=== PATIENT | male | born 1965 | race Caucasian/White ===

== ENCOUNTER 2016-12-10 18:49 | Inpatient (IN) | payer MEDICARE, MEDICAID ==
[2016-12-10] MEDS ORDERED: NORMAL SALINE 1000 ML 500 ML IV ONE (19:00)
--- NOTE | 2016-12-10 19:05 | ER Document Report ---
ED Respiratory Problem - General Time seen by provider: 19:05 Mode of Arrival: Medic Information source: Emergency Med Personnel, [facility] Records Cannot obtain history due to: Other TRAVEL OUTSIDE OF THE [place] IN LAST 30 DAYS: No - HPI Patient complains to provider of: Short of breath Onset: Other - see HPI note Duration: Continuous, Worse/persistent EMS treatments: CPAP, Solumedrol <KAYE MAGALLANES - Last Filed: 12/10/16 23:53> <CRISTOBAL SHETH - Last Filed: 12/11/16 01:41> - General Chief Complaint: Breathing Difficulty Stated Complaint: DIFFICULTY BREATHING Notes: Patient is a 50-year-old male presents to emergency department with complaints of difficulty breathing. Patient was brought in via EMS reports that the patient has been short of breath all day. Patient's oxygen saturation was in the 80s. Patient was given 2 A&A nebulizer treatments and 125 mg Solu-Medrol. Patient was placed on CPAP by EMS. Patient has a history of CHF, COPD, and type II diabetes mellitus. Patient opens his eyes to verbal commands but appears to be very sleepy and is not very responsive. Patient had a blood glucose level of 174 and a blood pressure of 214/120 at time of exam. Patient denies any chest pain but complains of hip pain. Patient has a history of being noncompliant to his medications or CPAP as well as a history of visits the emergency department for similar symptoms to today. Patient has been admitted in the past his CHF and COPD. Patient is allergic to codeine. (KAYE MAGALLANES) - Related Data Allergies/Adverse Reactions: codeine [Codeine] Allergy (Severe, Verified 10/09/16 07:46) Shellfish * [Shellfish] Allergy (Verified 10/09/16 07:46) Past Medical History - General Information source: Patient, Emergency Med Personnel, [facility] Records - Social History Smoking Status: Smoker,Current Status Unk Family History: Other - Mother- Stroke - Past Medical History Cardiac Medical History: Reports: Hx Atrial Fibrillation, Hx Congestive Heart Failure, Hx Heart Attack - x2, Hx Hypercholesterolemia, Hx Hypertension Pulmonary Medical History: Reports: Hx COPD, Hx Sleep Apnea - wears C-PAP at home, Hx Tuberculosis Endocrine Medical History: Reports: Hx Diabetes Mellitus Type 2, Hx Hypothyroidism GI Medical History: Reports: Hx Gastroesophageal Reflux Disease Skin Medical History: Reports Hx Cellulitis Psychiatric Medical History: Reports: Hx Depression Past Surgical History: Reports: Hx Appendectomy, Hx Cardiac Surgery - 3 Stents - Immunizations Hx Diphtheria, Pertussis, Tetanus Vaccination: Yes Hx Pneumococcal Vaccination: 02/25/13 <KAYE MAGALLANES - Last Filed: 12/10/16 23:53> Review of Systems - Review of Systems Constitutional: No symptoms reported EENT: No symptoms reported Cardiovascular: No symptoms reported. denies: Chest pain Respiratory: See HPI, Short of breath, Wheezing Gastrointestinal: No symptoms reported Genitourinary: No symptoms reported Male Genitourinary: No symptoms reported Musculoskeletal: No symptoms reported Skin: No symptoms reported Hematologic/Lymphatic: No symptoms reported Neurological/Psychological: No symptoms reported -: Yes All other systems reviewed and negative <KAYE MAGALLANES - Last Filed: 12/10/16 23:53> Physical Exam - Vital signs Interpretation: Hypertensive, Hypoxic, Tachypneic - General General appearance: Alert In distress: Moderate - Respiratory Respiratory status: Respiratory distress, Retractions Breath sounds: Decreased air movement, Rales, Wheezing - Cardiovascular Rhythm: Regular - Abdominal Inspection: Normal Distension: No distension Tenderness: Nontender - Back Back: Normal - Extremities General upper extremity: Normal inspection, Normal ROM General lower extremity: Normal inspection, Normal ROM - Neurological Neuro grossly intact: Yes Cognition: Normal Orientation: AAOx4 Juan R Coma Scale Eye Opening: To Voice [place] Coma Scale Verbal: Oriented [place] Coma Scale Motor: Obeys Commands [place] Coma Scale Total: 14 <CRISTOBAL SHETH - Last Filed: 12/11/16 01:41> - Vital signs Vitals: Resp Pulse Ox 24 H 90 L 12/10/16 18:54 12/10/16 18:54 (KAYE MAGALLANES) (CRISTOBAL SHETH) Course - Laboratory Result Diagrams: 12/10/16 18:55 12/10/16 18:55 - Consults Dr. Kelly Time consulted: 21:30 <KAYE MAGALLANES - Last Filed: 12/10/16 23:53> - Laboratory Result Diagrams: 12/10/16 18:55 12/10/16 18:55 <CRISTOBAL SHETH - Last Filed: 12/11/16 01:41> - Re-evaluation Re-evalutation: 12/10 Patient is a 50-year-old male who comes in with difficulty breathing. Patient has a history of heart failure, diabetes, hypothyroidism, noncompliance with medications. Patient's symptoms are consistent with his presentation in the past. Patient with acute heart failure. Patient was started on Lasix, nitroglycerin drip, and BiPAP. She is given levothyroxin for his high TSH. Patient has been drowsy but arousable. Initial CO2 was very elevated. Patient is able to follow commands. No evidence for pneumonia at this time. Discussed with the hospitalist service. Patient will be admitted to the ICU. Stable at time of admission. (CRISTOBAL SHETH) - Vital Signs Vital signs: Temp Pulse Resp BP Pulse Ox 15 105/55 L 95 12/11/16 00:11 12/11/16 00:11 12/11/16 00:11 (KAYE MAGALLANES) (CRISTOBAL SHETH) - Laboratory Laboratory results interpreted by me: 12/10/16 12/10/16 12/10/16 18:53 18:55 18:55 WBC 13.4 H RDW 15.0 H Band Neutrophils % 1 L Abs Neuts (Manual) 9.2 H Absolute Eos (Manual) 0.8 H VBG pH VBG pCO2 VBG HCO3 Chloride 85 L Carbon Dioxide 43 H* Glucose 173 H POC Glucose 174 H CK-MB (CK-2) NT-Pro-B Natriuret Pep TSH Urine Protein 12/10/16 12/10/16 12/10/16 18:55 18:55 18:55 WBC RDW Band Neutrophils % Abs Neuts (Manual) Absolute Eos (Manual) VBG pH 7.27 L VBG pCO2 103.6 H* VBG HCO3 46.0 H Chloride Carbon Dioxide Glucose POC Glucose CK-MB (CK-2) 5.57 H NT-Pro-B Natriuret Pep 1130 H TSH 164.00 H Urine Protein 12/10/16 12/10/16 20:46 21:30 WBC RDW Band Neutrophils % Abs Neuts (Manual) Absolute Eos (Manual) VBG pH VBG pCO2 VBG HCO3 Chloride Carbon Dioxide Glucose POC Glucose 190 H CK-MB (CK-2) NT-Pro-B Natriuret Pep TSH Urine Protein >=500 H (CRISTOBAL SHETH) - Consults Dr. Kelly Reason for consultation: 12/10/16 21:[address] Kelly. Patient will be admitted. (KAYE MAGALLANES ) Critical Care Note - Critical Care Note Total time excluding time spent on procedures (mins): 90 - evaluation and management of respiratory distress with multiple re-evaluations, treatment of CHF, coordination of admission to the ICU <CRISTOBAL SHETH - Last Filed: 12/11/16 01:41> Discharge <KAYE MAGALLANES - Last Filed: 12/10/16 23:53> - Discharge Admitting Provider: Cristhian Kelly Unit Admitted: ICU <CRISTOBAL SHETH - Last Filed: 12/11/16 01:41> - Discharge Clinical Impression: Myxedema coma, Obesity hypoventilation syndrome Respiratory failure, acute and chronic Qualifiers: Respiratory failure complication: hypercapnia Qualified Code(s): J96.22 - Acute and chronic respiratory failure with hypercapnia CHF (congestive heart failure) Qualifiers: Congestive heart failure type: unspecified congestive heart failure type Congestive heart failure chronicity: acute on chronic Qualified Code(s): I50.9 - Heart failure, unspecified Sleep apnea Qualifiers: Sleep apnea type: unspecified type Qualified Code(s): G47.30 - Sleep apnea, unspecified Condition: Fair Disposition: ADMITTED INPATIENT Scribe Attestation: 12/11/16 01:41 I personally performed the services described in the documentation, reviewed and edited the documentation which was dictated to the scribe in my presence, and it accurately records my words and actions. (CRISTOBAL SHETH) Scribe Documentation - Scribe Written by Scribe:: Kaye Magallanes 12/10/16 23:55 acting as scribe for :: Mary <KAYE MAGALLANES - Last Filed: 12/10/16 23:53>
[2016-12-10 19:09] LABS: VENOUS BLOOD BASE EXCESS 13.4 mmol/L; VENOUS BLOOD PH 7.27 (7.30-7.42)
[2016-12-10 19:12] LABS: HEMOGLOBIN 14.9 g/dL (13.5-17.0); HGB HCT DIFFERENCE -1.3; MEAN CORPUSCULAR HEMOGLOBIN 29.6 pg (27.0-33.4); MEAN CORPUSCULAR HGB CONC 32.5 g/dL (32.0-36.0); MEAN CORPUSCULAR VOLUME 91 fl (80-97); RED BLOOD COUNT 5.05 10^6/uL (4.35-5.55); VENOUS BLOOD PCO2 103.6 mmHg (35-63); WHITE BLOOD COUNT 13.4 10^3/uL (4.0-10.5)
[2016-12-10] MEDS ORDERED: FUROSEMIDE INJ/PF 40 MG/4 ML SDV IV ONE (19:16)
[2016-12-10 19:27] LABS: ALANINE AMINOTRANSFERASE 41 U/L (21-72); ALBUMIN 3.8 g/dL (3.5-5.0); ALKALINE PHOSPHATASE 114 U/L (38-126); ASPARTATE AMINO TRANSFERASE 41 U/L (17-59); BILIRUBIN,TOTAL 0.6 mg/dL (0.2-1.3); BLOOD UREA NITROGEN 13 mg/dL (7-20); CALCIUM 9.4 mg/dL (8.4-10.2); CHLORIDE 85 mmol/L (98-107); CREATINE KINASE 151 U/L (55-170); CREATININE RESULT 1.16 mg/dL (0.52-1.25); GLUCOSE 173 mg/dL (75-110); POTASSIUM 4.1 mmol/L (3.6-5.0); SODIUM 137.3 mmol/L (137-145); TOTAL PROTEIN 7.9 g/dL (6.3-8.2)
[2016-12-10 19:29] LABS: BAND NEUTROPHILS % (MANUAL) 1 % (3-5); BASOPHILS % (MANUAL) 0 % (0-2); EOSINOPHILS % (MANUAL) 6 % (0-6); LYMPHOCYTES % (MANUAL) 15 % (13-45); NUCLEATED RED BLOOD CELLS 1 /100 WBC (0); TOTAL CELLS COUNTED 100
[2016-12-10 19:30] LABS: RBC MORPHOLOGY COMMENT NORMO-CYTIC/CHROMIC
[2016-12-10 19:37] LABS: CREATINE KINASE MB 5.57 ng/mL (<4.55)
[2016-12-10] MEDS ORDERED: NITROGLYCERIN/D5W 250 ML IV PRN (19:39)
[2016-12-10] MEDS ORDERED: IPRATROPIUM/ALBUTEROL 0.5-2.5 MG/3 ML AMPUL NEB ONE (19:49)
[2016-12-10 19:59] LABS: ANION GAP 9 (5-19); CARBON DIOXIDE 43 mmol/L (22-30); TROPONIN I 0.048 ng/mL
[2016-12-10] MEDS ORDERED: LEVOTHYROXINE SODIUM INJ/PF 0.1 MG SDV IV ONE (21:12)
[2016-12-10 21:40] LABS: APPEARANCE,URINE CLEAR; BILIRUBIN,URINE NEGATIVE (NEGATIVE); GLUCOSE, URINE NEGATIVE (NEGATIVE); KETONES,URINE NEGATIVE (NEGATIVE); LEUKOCYTE ESTERASE,URINE NEGATIVE (NEGATIVE); NITRITE,URINE NEGATIVE (NEGATIVE); PROTEIN,URINE >=500 mg/dL (NEGATIVE); URINE SPECIFIC GRAVITY 1.009; UROBILINOGEN,URINE NEGATIVE mg/dL (<2.0)
[2016-12-10 23:03] LABS: ADD ON TESTING BLD IN LAB ACKNOWLEDGE
[2016-12-10 23:04] LABS: VENOUS BLOOD BASE EXCESS 10.3 mmol/L; VENOUS BLOOD HCO3 45.4 mmol/L (20-32)
[2016-12-10 23:14] LABS: VENOUS BLOOD PCO2 131.5 mmHg (35-63); VENOUS BLOOD PH 7.16 (7.30-7.42)
[2016-12-10 23:22] LABS: MAGNESIUM 1.8 mg/dL (1.6-2.3)
[2016-12-10 23:23] LABS: ALCOHOL < 10 mg/dL (NONE DETECTED)
[2016-12-10 23:35] LABS: URINE BARBITURATES SCREEN NEGATIVE; URINE METHADONE SCREEN NEGATIVE; URINE OPIATES LOW NEGATIVE; URINE PHENCYCLIDINE SCREEN NEGATIVE
[2016-12-10] MEDS ORDERED: PROPOFOL 100 ML IV ONE (23:50)
[2016-12-11] MEDS ORDERED: NORMAL SALINE 1000 ML 1,000 ML IV PRN (00:07)
[2016-12-11] MEDS ORDERED: DEXTROSE 50%-WATER 25 GM/50 ML DISP.SYRIN IV PRN ×4 (00:08→12:54)
[2016-12-11] MEDS ORDERED: DEXTROSE 40% GEL 15 GM TUBE PO PRN ×5 (00:08→12:54)
[2016-12-11] MEDS ORDERED: GLUCAGON,HUMAN RECOMB 1 MG INJ IM PRN ×3 (00:08→12:54)
--- NOTE | 2016-12-11 00:08 | EKG REPORT ---
SEVERITY:- ABNORMAL ECG - SINUS RHYTHM LEFT AXIS DEVIATION CONSIDER ANTERIOR INFARCT NONSPECIFIC T ABNORMALITIES, LATERAL LEADS PROLONGED QT INTERVAL : Confirmed by: Patria Mccain 11-Dec-2016 00:08:08
[2016-12-11] MEDS ORDERED: ALBUTEROL SULFATE 0.083% NEB 2.5 MG/3 ML AMPUL NEB PRN (00:37)
[2016-12-11] MEDS ORDERED: GENTAMICIN SULFATE 0 MG in DEXTROSE 5%-WATER 100 ML IV NR (00:45)
[2016-12-11] MEDS ORDERED: PHARMACY COMMUNICATION ORDER MC NR ×2 (00:45)
[2016-12-11] MEDS ORDERED: DOXYCYCLINE HYCLATE INJ 100 MG VIAL IV PRN (00:57)
[2016-12-11] MEDS ORDERED: DOXYCYCLINE HYCLATE 100 MG in DEXTROSE 5%-WATER 250 ML IV SCH (01:00)
[2016-12-11] MEDS ORDERED: DOXYCYCLINE HYCLATE INJ 100 MG VIAL IV SCH (01:00)
[2016-12-11] MEDS ORDERED: VANCOMYCIN HCL 0 MG in DEXTROSE 5%-WATER 250 ML IV NR (01:00)
[2016-12-11 01:21] LABS: ADD ON TESTING BLD IN LAB ACKNOWLEDGE
--- NOTE | 2016-12-11 01:26 | PDOC H&P ---
History of Present Illness Admission Date/PCP: 12/10/16 21:51 ALONSO SHAHID MD Patient complains of: Difficulty breathing History of Present Illness: DESIRAE MALLORY is a 50 year old morbidly obese male, with underlying hypo-thyroidism, moh-dabrzjd-vuluaevcd diabetes mellitus, chronic noncompliance with multiple aspects of his health care including medications, coronary artery disease, status post stent 3, with last stent 2016 at [facility], COPD, and asthma, who presents to the emergency room for evaluation of above complaint. Patient has been discussed with emergency room physician who evaluated the patient; dictated note is pending. Patient is quite somnolent and is able to provide no history whatsoever in terms of acute or chronic events, review of systems, personal habits, family history, etc. No friends or family are present. Old inpatient records are reviewed.. No further information available at this time. BiPAP applied by the emergency room physician. Repeat venous gas shows rising PCO2. Patient barely arousable. Decision made to proceed with endotracheal intubation, which was accomplished by the [employer]. At 11:40 PM on the , I had an extensive telephone discussion with his sister Helena shortly prior to intubation. No answer for daughter Veronica, at . Similar lack of response for father at [phone]. Overall clinical impression and plans were discussed in layperson's terms with sister. She agrees and is most appreciative of our help. Laboratory results are listed in [facility] and are reviewed. X-ray summary results are listed below, with full report(s) reviewed. . EKG reviewed. And compared to tracing from 10/09/2016 Social history/personal habits: Daughter Veronica. One to 2 pack-a-day smoker. No alcohol use. No illicit drug use. No further information available this point in time. Allergies/adverse reactions are listed in [facility] and are reviewed. Home medications are reviewed bottle review and are to be reconciled by nursing staff in [facility]. Home medications initially autopopulated into [facility] may not accurately reflect patient's true medications, dosages, and/or frequencies. REVIEW OF SYSTEMS: See history and present illness.No further information available this point in time. PHYSICAL EXAMINATION: 170 kg. Height is not recorded on the chart. Blood pressure 150/70. 94% saturation on BiPAP 14/8, 70% FiO2. Respirations are 14 and unlabored. Pulse 76 and regular. Temperature not recorded on the chart; skin feels normothermic. Morbidly obese chronically ill-appearing somewhat disheveled male who appears a bit older than his stated age. BiPAP mask is in place. He is only minimally arousable when his name is shouted. However, he does move upper extremities grossly normally. Currently maintaining airway. Skin is warm and dry. No grossly obvious evidence of rash in areas of skin examined. No subcutaneous nodules palpated. Evidence of chronic venous staining bilateral lower extremities, consistent with probable long-standing venous stasis disease. ENT: Hearing difficult to evaluate due to his current status. Exam slightly limited by BiPAP mask with attaching straps. Eyes: No scleral icterus. Pupils equal and reactive to light at 4 mm. Burtrum conjunctivae. No raccoon eyes. Neck is nontender to gentle palpation. Midline trachea. No palpable thyroid nodule mass enlargement or tenderness. Lymphatic: No palpable cervical or clavicular nodes. Neck and lymphatic exams limited by patient body habitus. Exam slightly limited by BiPAP mask with attaching straps. Psychiatric: Can't be adequately evaluated due to his current status. Lungs: Auscultation reveals clear and equal breath sounds bilaterally. No use of accessory respiratory muscles. Cardiovascular: Heart regular rate and rhythm, without gallop murmur or rub. No carotid or abdominal aortic bruits. Scant bilateral symmetric ankle and pedal edema. Faintly palpable dorsalis pedis pulses. Abdomen: soft, rather obese, nontender with positive bowel sounds. Unable to adequately evaluate abdomen for masses or organomegaly due to body habitus. Extremities: Feet are warm and dry. No calf tenderness to compression. No grossly obvious visual evidence of calf swelling. Gentle manipulation of lower extremities fails to reveal any obvious evidence of injury or instability to knees hips or ankles. Neurologic: Moves upper extremities grossly normally. Patellar reflexes absent. Absent Babinski. Light touch can't be determined due to his current status... Past Medical History Past Medical History: Information per [facility] records and telephone discussion with sister Helena. Cardiac Medical History: Reports: Atrial Fibrillation, Congestive Heart Failure - DIASTOLIC, Myocardial Infarction - x2, Hyperlipidema, Hypertension, Other - stent X 3, last 2015 Denies: DVT, Pulmonary Embolism Pulmonary Medical History: Reports: Asthma, Chronic Obstructive Pulmonary Disease (COPD), Sleep Apnea - Noncompliant with C-PAP at home, Tuberculosis - History of EENT Medical History: Reports: Ears - partial hearing loss Denies: Eyes, Throat Neurological Medical History: Reports: Other - Hx TIA vs CVA Denies: Hemorrhagic CVA, Seizures Endocrine Medical History: Reports: Diabetes Mellitus Type 2, Hypothyroidism Denies: Hyperthyroidism Renal/ Medical History: Reports: None GI Medical History: Reports: Gastroesophageal Reflux Disease Denies: Cirrhosis, Hepatitis, Peptic Ulcer Disease Musculoskeltal Medical History: Reports: Arthritis Psychiatric Medical History: Reports: Bipolar Disorder, Depression, General Anxiety Disorder, Tobacco Dependency Denies: Alcohol Dependency, Substance Abuse Hematology: Reports: Other - EASY bruising Infectious Medical History: Denies: Hepatitis B, Hepatitis C Past Surgical History Past Surgical History: Reports: Appendectomy, Coronary Stent - X 3; last 2015, REPLACED BY [facility] Social History Information Source: Relative, Emergency Med Personnel, [facility] Records Smoking Status: Smoker,Current Status Unk Frequency of Alcohol Use: None Hx Recreational Drug Use: No Drugs: Marijuana Hx Prescription Drug Abuse: No - Advance Directive Resuscitation Status: Full Code Surrogate healthcare decision maker:: Uncertain at this point in time. Family History Family History: CVA, Other - DVT, multiple members Parental Family History Reviewed: No - No information available this point in time. Children Family History Reviewed: No Sibling(s) Family History Reviewed.: No Medication/Allergy Home Medications: RX: Atorvastatin Calcium 40 mg PO DAILY 06/02/14 RX: Nitroglycerin 1 tab PO PRN PRN 06/02/14 Furosemide [Lasix 40 mg Tablet] 40 mg PO QAM #30 tablet 06/05/14 Candesartan Cilexetil [Candesartan Cilexetil] 1 tab PO DAILY 10/09/16 Clopidogrel Bisulfate [Clopidogrel] 1 tab PO DAILY 10/09/16 Isosorbide Mononitrate [Isosorbide Mononitrate ER] 30 mg PO DAILY 10/09/16 Liraglutide [Victoza 2-Shemar] 0.1 ml SUBCUT DAILY 10/09/16 Metoprolol Tartrate [Metoprolol Tartrate] 25 mg PO DAILY 10/09/16 Naproxen [Naproxen] 500 mg PO BID PRN 10/09/16 RX: Fluticasone Propionate 1 spray IH DAILY 11/29/16 RX: Tiotropium [place] [Spiriva Handihaler 5 Cap/Kit (18 Mcg/Cap)] 1 cap IH DAILY 10/09/16 Sertraline HCl [Sertraline HCl] 100 mg PO DAILY 10/09/16 Acetaminophen/Pyrilam/Pamabrom [Pamprin Multi-Symptom Tab] 1 tab PO Q6 PRN 12/11 Levothyroxine Sodium [Synthroid 0.025 mg Tablet] 25 mcg PO DAILY 12/11/16 Allergies/Adverse Reactions: codeine [Codeine] Allergy (Severe, Verified 10/09/16 07:46) Shellfish * [Shellfish] Allergy (Verified 10/09/16 07:46) Physical Exam Vital Signs: Temp Pulse Resp BP Pulse Ox 15 105/55 L 95 12/11/16 00:11 12/11/16 00:11 12/11/16 00:11 Intake & Output 12/09/16 12/10/16 12/11/16 00:59 00:59 00:59 Intake Total 200 Output Total 700 Balance -500 Results Laboratory Results: 12/10/16 22:52 VBG pH 7.16 L* VBG pCO2 131.5 H* VBG HCO3 45.4 H VBG Base Excess 10.3 Impressions: Chest X-Ray 12/10/16 19:00 IMPRESSION: CARDIAC ENLARGEMENT. VASCULAR CONGESTION. Assessment & Plan - Diagnosis (1) Bilateral pneumonia Qualifiers: Pneumonia type: due to unspecified organism Lung location: lower lobe of lung Qualified Code(s): J18.9 - Pneumonia, unspecified organism Is this a current diagnosis for this admission?: YesPlan: Patient will be admitted under COPD exacerbation and pneumonia protocol. Scheduled Duonebs. PRN albuterol nebs. IV Pepcid] for gastritis prophylaxis Pulmonology consult. Antibiotics will consist of intravenous Zithromax and vancomycin, along with cefepime and gentamicin. Pharmacy to assist with dosing.. Patient is a full code. Knee high SCDs for DVT prophylaxis, along with subcutaneous heparin. Impression and plans were discussed with sister, who concurs. Time spent in evaluation and management of patient: 100 Critical care minutes. (2) ARIADNA (obstructive sleep apnea) Is this a current diagnosis for this admission?: Yes (3) Asthma Qualifiers: Asthma severity: unspecified severity Asthma complication type: uncomplicated Qualified Code(s): J45.909 - Unspecified asthma, uncomplicated Is this a current diagnosis for this admission?: Yes (4) Stented coronary artery Is this a current diagnosis for this admission?: YesPlan: Resume home medications as appropriate once these have been determined and reviewed. (5) COPD exacerbation Is this a current diagnosis for this admission?: Yes (6) Hypertensive urgency Is this a current diagnosis for this admission?: YesPlan: Gradual blood pressure reduction. Vital sign parameters listed in chart. (7) Acute on chronic diastolic (congestive) heart failure Is this a current diagnosis for this admission?: YesPlan: Resume home medications as appropriate once these have been determined and reviewed. Serial troponins. (8) Diabetes mellitus type 2 in obese Is this a current diagnosis for this admission?: YesPlan: Accu-Cheks with appropriate sliding scale coverage. (9) Respiratory failure, acute and chronic Qualifiers: Respiratory failure complication: hypoxia and hypercapnia Qualified Code(s): J96.21 - Acute and chronic respiratory failure with hypoxia Is this a current diagnosis for this admission?: Yes (10) Myxedema coma Is this a current diagnosis for this admission?: YesPlan: TSH noted. T4 and cortisol levels have been drawn. Stress dose steroids. parenteral Synthroid. Hospital does not carry parenteral T3, per my conversation with [facility] pharmacy. Intravenous dextrose. - Inpatient Certification Based on my medical assessment, after consideration of the patient's comorbidities, presenting symptoms, or acuity I expect that the services needed warrant INPATIENT care.: Yes I certify that my determination is in accordance with my understanding of Medicare's requirements for reasonable and necessary INPATIENT services [42 CFR 412.3e].: Yes Medical Necessity: Need For IV Fluids, Need For Continuous Telemetry Monitoring , Need for Nebulizer Therapy and Monitoring of Response, Need for IV Antibiotics , Risk of Diagnosis Which Will Require Inpatient Eval/Care/Monitoring Post Hospital Care: D/C or Transfer Summary
[2016-12-11] MEDS: PROPOFOL 100 ML IV PRN ×9 (02:17→22:36)
[2016-12-11 02:49] LABS: ARTERIAL BLOOD BASE EXCESS 10.6 mmol/L; ARTERIAL BLOOD O2 SATURATION 88.3 % (94-98)
[2016-12-11] MEDS ORDERED: LEVOTHYROXINE SODIUM INJ/PF 0.1 MG SDV IV ONE (04:15)
[2016-12-11] MEDS ORDERED: VANCOMYCIN HCL INJ 1000 MG VIAL IV PRN (04:21)
[2016-12-11] MEDS: DEXTROSE 5%-NORMAL SALINE 1,000 ML IV PRN (04:32)
[2016-12-11] MEDS ORDERED: VANCOMYCIN HCL INJ 1000 MG VIAL ONE (04:47)
[2016-12-11] MEDS ORDERED: LEVOTHYROXINE SODIUM INJ/PF 0.1 MG SDV ONE (04:47)
[2016-12-11] MEDS ORDERED: VANCOMYCIN HCL 2,000 MG in DEXTROSE 5%-WATER 500 ML IV ONE (05:00)
[2016-12-11] MEDS: HYDROCORTISONE SOD SUCCINATE INJ/PF 100 MG/2 ML SDV IV SCH ×3 (05:24→23:08)
[2016-12-11] MEDS: HEPARIN SOD (PORCINE) 5,000 UNIT/ML 1 ML SYRINGE SUBCUT SCH ×3 (05:26→23:09)
[2016-12-11 07:41] LABS: HEMATOCRIT 40.2 % (37.9-51.0); HEMOGLOBIN 13.3 g/dL (13.5-17.0); HGB HCT DIFFERENCE -0.3; MEAN CORPUSCULAR HEMOGLOBIN 29.7 pg (27.0-33.4); MEAN CORPUSCULAR VOLUME 90 fl (80-97); RED BLOOD COUNT 4.46 10^6/uL (4.35-5.55); RED CELL DISTRIBUTION WIDTH 14.8 % (11.5-14.0); WHITE BLOOD COUNT 14.3 10^3/uL (4.0-10.5)
[2016-12-11] MEDS ORDERED: IPRATROPIUM/ALBUTEROL 0.5-2.5 MG/3 ML AMPUL NEB SCH (08:00)
[2016-12-11 08:04] LABS: BASOPHILS % (MANUAL) 0 % (0-2); EOSINOPHILS % (MANUAL) 0 % (0-6); LYMPHOCYTES % (MANUAL) 6 % (13-45); TOTAL CELLS COUNTED 100
[2016-12-11 08:06] LABS: POLYCHROMASIA SLIGHT; STOMATOCYTES SLIGHT; TOXIC GRANULATION SLIGHT; TOXIC VACUOLATION PRESENT
[2016-12-11 08:07] LABS: ANISOCYTOSIS SLIGHT; BURR CELLS SLIGHT; MICROCYTOSIS SLIGHT; PLATELET CLUMPS PRESENT; POIKILOCYTOSIS SLIGHT
[2016-12-11] MEDS: IPRATROPIUM/ALBUTEROL 0.5-2.5 MG/3 ML AMPUL NEB SCH ×3 (08:35→20:02)
[2016-12-11 09:26] LABS: VENOUS BLOOD BASE EXCESS 13.4 mmol/L; VENOUS BLOOD HCO3 43.6 mmol/L (20-32); VENOUS BLOOD PH 7.34 (7.30-7.42)
[2016-12-11 09:28] LABS: VENOUS BLOOD PCO2 83.7 mmHg (35-63)
[2016-12-11 09:42] LABS: BLOOD UREA NITROGEN 17 mg/dL (7-20); CALCIUM 8.6 mg/dL (8.4-10.2); CHLORIDE 84 mmol/L (98-107); CREATININE RESULT 1.12 mg/dL (0.52-1.25); GLUCOSE 253 mg/dL (75-110); POTASSIUM 4.5 mmol/L (3.6-5.0); SODIUM 135.1 mmol/L (137-145); TRIGLYCERIDES 480 mg/dL (<150)
[2016-12-11 09:53] LABS: ANION GAP 10 (5-19)
[2016-12-11 09:55] LABS: CARBON DIOXIDE 41 mmol/L (22-30)
[2016-12-11] MEDS ORDERED: LEVOTHYROXINE SODIUM INJ/PF 0.1 MG SDV IV SCH (10:00)
[2016-12-11] MEDS ORDERED: CEFEPIME 2 GM/D5W RTU 50 ML IV SCH (10:00)
[2016-12-11] MEDS: TIOTROPIUM BROMIDE DPI 5 CAP/KIT (18 MCG/CAP) IH SCH (10:39)
[2016-12-11] MEDS ORDERED: INFLUENZA ADLT QUAD (36MOS+) 2016-17 VAC 0.5 ML SYR IM PRN (10:40)
[2016-12-11 10:50] LABS: ARTERIAL BLOOD BASE EXCESS 10.5 mmol/L; ARTERIAL BLOOD O2 SATURATION 87.5 % (94-98)
[2016-12-11] MEDS: CEFEPIME HCL 2 GM in DEXTROSE 5%-WATER 50 ML IV SCH ×2 (10:55→23:11)
[2016-12-11] MEDS: FUROSEMIDE INJ/PF 40 MG/4 ML SDV IV SCH (10:56)
[2016-12-11] MEDS: FAMOTIDINE INJ/PF 20 MG/2 ML SDV IV SCH ×2 (10:56→23:09)
[2016-12-11] MEDS: CLOPIDOGREL BISULFATE 75 MG TABLET NG SCH (10:56)
[2016-12-11] MEDS: METOPROLOL TARTRATE PF/INJ 5 MG/5 ML SDV IV SCH ×2 (10:57→23:12)
[2016-12-11] MEDS ORDERED: DEXTROSE 50%-WATER SYRINGE 12.5 GM/25 ML DOSE IV PRN (11:54)
[2016-12-11] MEDS ORDERED: DEXTROSE 50%-WATER SYRINGE 25 GM/50 ML DOSE IV PRN (11:54)
[2016-12-11] MEDS ORDERED: DEXTROSE 40% GEL 15 GM TUBE X 2 PO PRN (11:54)
[2016-12-11] MEDS ORDERED: INSULIN LISPRO 100 UNIT/ML 3 ML VIAL SUBCUT SCH (12:00)
--- NOTE | 2016-12-11 12:54 | PDOC PROGRESS REPORT ---
Subjective Progress Note for:: 12/11/16 Subjective:: Patient is intubated and sedated. Physical Exam Vital Signs: Temp Pulse Resp BP Pulse Ox 99.0 F 56 L 18 129/67 H 91 L 12/11/16 12:00 12/11/16 12:00 12/11/16 12:01 12/11/16 12:01 12/11/16 12:01 Intake & Output 12/10/16 12/11/16 12/12/16 06:59 06:59 06:59 Intake Total 683 Output Total 1885 435 Balance -1202 -435 Weight 171.5 kg General appearance: PRESENT: no acute distress Eye exam: PRESENT: conjunctiva pink. ABSENT: scleral icterus Mouth exam: PRESENT: moist, tongue midline, other - ET tube in place along with an OG tube. Neck exam: ABSENT: JVD Respiratory exam: PRESENT: rhonchi - Bilateral rhonchi. Cardiovascular exam: PRESENT: RRR. ABSENT: diastolic murmur, rubs, systolic murmur GI/Abdominal exam: PRESENT: normal bowel sounds, soft. ABSENT: distended, guarding, mass, organolmegaly, rebound, tenderness Extremities exam: ABSENT: calf tenderness, clubbing, pedal edema Neurological exam: PRESENT: other - Intubated and sedated. Psychiatric exam: PRESENT: other - Unable to assess. Skin exam: PRESENT: dry, intact, warm. ABSENT: cyanosis, rash Results Laboratory Results: 12/11/16 07:25 12/11/16 09:14 12/11/16 12/11/16 12/11/16 02:35 07:25 07:25 WBC 14.3 H RBC 4.46 Hgb 13.3 L Hct 40.2 MCV 90 MCH 29.7 MCHC 33.0 RDW 14.8 H Plt Count 214 Seg Neutrophils % Not Reportable Lymphocytes % Not Reportable Monocytes % Not Reportable Eosinophils % Not Reportable Basophils % Not Reportable Absolute Neutrophils Not Reportable Absolute Lymphocytes Not Reportable Absolute Monocytes Not Reportable Absolute Eosinophils Not Reportable Absolute Basophils Not Reportable Carbonic Acid 2.21 H HCO3/H2CO3 Ratio 17:1 ABG pH 7.35 ABG pCO2 73.4 H* ABG pO2 59.4 L ABG HCO3 39.5 H ABG O2 Saturation 88.3 L ABG Base Excess 10.6 VBG pH VBG pCO2 VBG HCO3 VBG Base Excess FiO2 100% Sodium Cancelled Potassium Cancelled Chloride Cancelled Carbon Dioxide Cancelled Anion Gap Cancelled BUN Cancelled Creatinine Cancelled Est GFR ( Amer) Cancelled Est GFR (Non-Af Amer) Cancelled Glucose Cancelled Calcium Cancelled Triglycerides 12/11/16 12/11/16 12/11/16 07:25 09:14 09:17 WBC RBC Hgb Hct MCV MCH MCHC RDW Plt Count Seg Neutrophils % Lymphocytes % Monocytes % Eosinophils % Basophils % Absolute Neutrophils Absolute Lymphocytes Absolute Monocytes Absolute Eosinophils Absolute Basophils Carbonic Acid HCO3/H2CO3 Ratio ABG pH ABG pCO2 ABG pO2 ABG HCO3 ABG O2 Saturation ABG Base Excess VBG pH 7.34 VBG pCO2 83.7 H* VBG HCO3 43.6 H VBG Base Excess 13.4 FiO2 Sodium 135.1 L Potassium 4.5 Chloride 84 L Carbon Dioxide 41 H* Anion Gap 10 BUN 17 Creatinine 1.12 Est GFR ( Amer) > 60 Est GFR (Non-Af Amer) > 60 Glucose 253 H Calcium 8.6 Triglycerides Cancelled 480 H 12/11/16 10:35 WBC RBC Hgb Hct MCV MCH MCHC RDW Plt Count Seg Neutrophils % Lymphocytes % Monocytes % Eosinophils % Basophils % Absolute Neutrophils Absolute Lymphocytes Absolute Monocytes Absolute Eosinophils Absolute Basophils Carbonic Acid 1.45 H HCO3/H2CO3 Ratio 24:1 ABG pH 7.49 H ABG pCO2 48.1 H ABG pO2 49.7 L ABG HCO3 35.5 H ABG O2 Saturation 87.5 L ABG Base Excess 10.5 VBG pH VBG pCO2 VBG HCO3 VBG Base Excess FiO2 60% Sodium Potassium Chloride Carbon Dioxide Anion Gap BUN Creatinine Est GFR ( Amer) Est GFR (Non-Af Amer) Glucose Calcium Triglycerides 12/11/16 12/11/16 00:49 07:25 Troponin I 0.051 0.036 Impressions: Chest X-Ray 12/10/16 19:00 IMPRESSION: CARDIAC ENLARGEMENT. VASCULAR CONGESTION. KUB X-Ray 12/11/16 00:39 IMPRESSION: Nasogastric tube extends below the diaphragm. Assessment & Plan - Diagnosis (1) Respiratory failure, acute and chronic Qualifiers: Respiratory failure complication: hypercapnia Qualified Code(s): J96.22 - Acute and chronic respiratory failure with hypercapnia Is this a current diagnosis for this admission?: YesPlan: There was concern initially this may represent an early pneumonia although chest x-ray does not show an obvious infiltrate. Patient has been started on multiple antibiotics we will continue the vancomycin and cefepime. We'll also continue the doxycycline for now and stop the gentamicin. This could very well be secondary to congestive heart failure along with COPD as well. (2) Acute on chronic diastolic (congestive) heart failure Is this a current diagnosis for this admission?: YesPlan: Patient is on IV Lasix and we'll continue with that. (3) COPD exacerbation Is this a current diagnosis for this admission?: YesPlan: We'll continue with nebulizers and IV steroids. (4) Bilateral pneumonia Qualifiers: Pneumonia type: due to unspecified organism Lung location: lower lobe of lung Qualified Code(s): J18.9 - Pneumonia, unspecified organism Is this a current diagnosis for this admission?: YesPlan: Is not clear whether the findings on chest x-ray are congestive heart failure versus early pneumonia. We have the possibility of pneumonia covered with antibiotics as above. (5) Hypertensive urgency Is this a current diagnosis for this admission?: YesPlan: Improving. The patient's blood pressures have returned to normal range. (6) Myxedema coma Is this a current diagnosis for this admission?: YesPlan: The patient has a very high TSH and low T4. He does have a history of taking Synthroid 200 g. Patient has gotten IV doses of Synthroid. Given his history of coronary artery disease I am hesitant to be more aggressive and we will give 100 g daily for now. (7) Sleep apnea Qualifiers: Sleep apnea type: unspecified type Qualified Code(s): G47.30 - Sleep apnea, unspecified Is this a current diagnosis for this admission?: YesPlan: Patient is currently intubated and ventilated. (8) Hypothyroidism Is this a current diagnosis for this admission?: YesPlan: Continue with Synthroid as above. (9) Obesity hypoventilation syndrome Is this a current diagnosis for this admission?: YesPlan: Patient is intubated and ventilated. (10) Diabetes mellitus type 2 in obese Is this a current diagnosis for this admission?: YesPlan: We'll continue with sliding scale insulin. (11) ARIADNA (obstructive sleep apnea) Is this a current diagnosis for this admission?: Yes (12) Stented coronary artery Is this a current diagnosis for this admission?: YesPlan: Continue the Plavix. - Time Critical Time spent with patient: 15-24 minutes - Inpatient Certification Medical Necessity: Need for IV Antibiotics
[2016-12-11] MEDS ORDERED: SUCCINYLCHOLINE CHLORIDE INJ 200 MG/10 ML VIAL ONE (13:14)
[2016-12-11] MEDS: DOXYCYCLINE HYCLATE 100 MG in DEXTROSE 5%-WATER 250 ML IV SCH (16:01)
[2016-12-11] MEDS: INSULIN REG, HUMAN 100 UNIT/ML 3 ML VIAL (PYX) SUBCUT PRN (19:29)
[2016-12-11] MEDS: VANCOMYCIN HCL 2,000 MG in DEXTROSE 5%-WATER 500 ML IV SCH (19:30)
[2016-12-12] MEDS: INSULIN REG, HUMAN 100 UNIT/ML 3 ML VIAL (PYX) SUBCUT PRN ×2 (00:10→18:36)
[2016-12-12] MEDS: PROPOFOL 100 ML IV PRN ×8 (02:00→23:20)
[2016-12-12] MEDS: DOXYCYCLINE HYCLATE 100 MG in DEXTROSE 5%-WATER 250 ML IV SCH (02:12)
[2016-12-12] MEDS: IPRATROPIUM/ALBUTEROL 0.5-2.5 MG/3 ML AMPUL NEB SCH ×4 (02:36→19:49)
[2016-12-12 04:17] LABS: ABSOLUTE LYMPHOCYTES (AUTO) 1.7 10^3/uL (0.5-4.7); ABSOLUTE MONOCYTES (AUTO) 0.9 10^3/uL (0.1-1.4); ABSOLUTE NEUT (AUTO) 8.4 10^3/uL (1.7-8.2); BASOPHILS % (AUTO) 0.1 % (0-2); EOSINOPHILS % (AUTO) 0.3 % (0-6); HEMATOCRIT 39.2 % (37.9-51.0); HEMOGLOBIN 13.2 g/dL (13.5-17.0); HGB HCT DIFFERENCE 0.4; LYMPHOCYTES % (AUTO) 15.2 % (13-45); MEAN CORPUSCULAR HEMOGLOBIN 29.8 pg (27.0-33.4); MEAN CORPUSCULAR HGB CONC 33.6 g/dL (32.0-36.0); MEAN CORPUSCULAR VOLUME 89 fl (80-97); MONOCYTES % (AUTO) 8.1 % (3-13); RED BLOOD COUNT 4.42 10^6/uL (4.35-5.55); SEGMENTED NEUTROPHILS % (AUTO) 76.3 % (42-78); WHITE BLOOD COUNT 11.1 10^3/uL (4.0-10.5)
[2016-12-12 04:22] LABS: PROTHROMBIN TIME 12.8 SEC (11.4-15.4)
[2016-12-12 04:23] LABS: PARTIAL THROMBOPLASTIN TIME 28.6 SEC (23.5-35.8)
[2016-12-12 04:36] LABS: ALANINE AMINOTRANSFERASE 37 U/L (21-72); ALKALINE PHOSPHATASE 103 U/L (38-126); ANION GAP 11 (5-19); ASPARTATE AMINO TRANSFERASE 30 U/L (17-59); BILIRUBIN,TOTAL 0.7 mg/dL (0.2-1.3); BLOOD UREA NITROGEN 27 mg/dL (7-20); CALCIUM 8.7 mg/dL (8.4-10.2); CARBON DIOXIDE 36 mmol/L (22-30); CHLORIDE 87 mmol/L (98-107); CREATININE RESULT 1.48 mg/dL (0.52-1.25); GLUCOSE 213 mg/dL (75-110); MAGNESIUM 1.5 mg/dL (1.6-2.3); SODIUM 133.5 mmol/L (137-145); TOTAL PROTEIN 6.3 g/dL (6.3-8.2)
[2016-12-12] MEDS: VANCOMYCIN HCL 2,000 MG in DEXTROSE 5%-WATER 500 ML IV SCH (05:14)
[2016-12-12] MEDS: HYDROCORTISONE SOD SUCCINATE INJ/PF 100 MG/2 ML SDV IV SCH ×3 (05:14→21:01)
[2016-12-12] MEDS: HEPARIN SOD (PORCINE) 5,000 UNIT/ML 1 ML SYRINGE SUBCUT SCH ×3 (05:17→21:02)
[2016-12-12 06:23] LABS: ARTERIAL BLOOD BASE EXCESS 10.5 mmol/L; ARTERIAL BLOOD O2 SATURATION 93.5 % (94-98)
[2016-12-12] MEDS ORDERED: MAGNESIUM SULFATE/D5W 1 GM/100 ML RTUPB IV ONE (08:45)
[2016-12-12] MEDS: FUROSEMIDE INJ/PF 40 MG/4 ML SDV IV SCH (10:01)
[2016-12-12] MEDS: METOPROLOL TARTRATE PF/INJ 5 MG/5 ML SDV IV SCH ×2 (10:02→21:03)
[2016-12-12] MEDS: FAMOTIDINE INJ/PF 20 MG/2 ML SDV IV SCH ×2 (10:02→21:01)
[2016-12-12] MEDS: CLOPIDOGREL BISULFATE 75 MG TABLET NG SCH (10:02)
[2016-12-12] MEDS: CEFEPIME HCL 2 GM in DEXTROSE 5%-WATER 50 ML IV SCH (10:03)
[2016-12-12] MEDS: TIOTROPIUM BROMIDE DPI 5 CAP/KIT (18 MCG/CAP) IH SCH (10:03)
--- NOTE | 2016-12-12 10:26 | PDOC PROGRESS REPORT ---
Subjective Progress Note for:: 12/12/16 Subjective:: Patient is intubated but is not currently sedated. He was able to mouth that he was feeling better and wants to know when his ET tube could be removed. Physical Exam Vital Signs: Temp Pulse Resp BP Pulse Ox 98.3 F 71 19 169/84 H 95 12/12/16 10:00 12/12/16 10:00 12/12/16 10:00 12/12/16 10:00 12/12/16 10:00 Intake & Output 12/11/16 12/12/16 12/13/16 06:59 06:59 06:59 Intake Total 683 3443 Output Total 1887 8301 1200 Balance -1202 -392 -1200 Weight 171.5 kg General appearance: PRESENT: no acute distress Eye exam: PRESENT: conjunctiva pink. ABSENT: scleral icterus Ear exam: PRESENT: normal external ear exam Mouth exam: PRESENT: moist, tongue midline Neck exam: ABSENT: JVD Respiratory exam: PRESENT: clear to auscultation laxmi. ABSENT: rales, rhonchi, wheezes Cardiovascular exam: PRESENT: RRR. ABSENT: diastolic murmur, rubs, systolic murmur GI/Abdominal exam: PRESENT: normal bowel sounds, soft. ABSENT: distended, guarding, mass, organolmegaly, rebound, tenderness Extremities exam: ABSENT: calf tenderness, clubbing, pedal edema Neurological exam: PRESENT: alert, awake Psychiatric exam: PRESENT: appropriate affect Skin exam: PRESENT: dry, intact, warm. ABSENT: cyanosis, rash Results Laboratory Results: 12/12/16 03:56 12/12/16 03:56 12/11/16 12/12/16 12/12/16 10:35 03:56 03:56 WBC 11.1 H RBC 4.42 Hgb 13.2 L Hct 39.2 MCV 89 MCH 29.8 MCHC 33.6 RDW 15.0 H Plt Count 220 Seg Neutrophils % 76.3 Lymphocytes % 15.2 Monocytes % 8.1 Eosinophils % 0.3 Basophils % 0.1 Absolute Neutrophils 8.4 H Absolute Lymphocytes 1.7 Absolute Monocytes 0.9 Absolute Eosinophils 0.0 Absolute Basophils 0.0 Carbonic Acid 1.45 H HCO3/H2CO3 Ratio 24:1 ABG pH 7.49 H ABG pCO2 48.1 H ABG pO2 49.7 L ABG HCO3 35.5 H ABG O2 Saturation 87.5 L ABG Base Excess 10.5 FiO2 60% Sodium 133.5 L Potassium 4.0 Chloride 87 L Carbon Dioxide 36 H Anion Gap 11 BUN 27 H Creatinine 1.48 H Est GFR ( Amer) > 60 Est GFR (Non-Af Amer) 50 L Glucose 213 H Calcium 8.7 Magnesium 1.5 L Total Bilirubin 0.7 AST 30 ALT 37 Alkaline Phosphatase 103 Total Protein 6.3 Albumin 3.0 L 12/12/16 06:05 WBC RBC Hgb Hct MCV MCH MCHC RDW Plt Count Seg Neutrophils % Lymphocytes % Monocytes % Eosinophils % Basophils % Absolute Neutrophils Absolute Lymphocytes Absolute Monocytes Absolute Eosinophils Absolute Basophils Carbonic Acid 1.29 HCO3/H2CO3 Ratio 26:1 ABG pH 7.52 H ABG pCO2 42.9 ABG pO2 60.8 L ABG HCO3 34.5 H ABG O2 Saturation 93.5 L ABG Base Excess 10.5 FiO2 50% Sodium Potassium Chloride Carbon Dioxide Anion Gap BUN Creatinine Est GFR ( Amer) Est GFR (Non-Af Amer) Glucose Calcium Magnesium Total Bilirubin AST ALT Alkaline Phosphatase Total Protein Albumin 12/11/16 12/11/16 00:49 07:25 Troponin I 0.051 0.036 Impressions: KUB X-Ray 12/11/16 00:39 IMPRESSION: Nasogastric tube extends below the diaphragm. Chest/Abdomen CTA 12/11/16 11:44 IMPRESSION: 1. NORMAL CTA OF THE CHEST. NO PULMONARY EMBOLI. 2. CARDIOMEGALY. PROMINENT AIRSPACE DISEASE IN THE RIGHT AND LEFT LOWER LOBES SECONDARY TO PNEUMONIA AND/OR ATELECTASIS. Chest X-Ray 12/12/16 06:00 IMPRESSION: OVERALL SLIGHT IMPROVEMENT COMPARED TO THE PRIOR STUDY DESCRIBED ABOVE. Assessment & Plan - Diagnosis (1) Respiratory failure, acute and chronic Qualifiers: Respiratory failure complication: hypercapnia Qualified Code(s): J96.22 - Acute and chronic respiratory failure with hypercapnia Is this a current diagnosis for this admission?: YesPlan: There was concern initially this may represent an early pneumonia although chest x-ray does not show an obvious infiltrate. Will change antibiotics to Levaquin and DC all the other antibiotics. This could very well be secondary to congestive heart failure along with COPD as well. Patient has improved and we will try to wean off the ventilator today. (2) Acute on chronic diastolic (congestive) heart failure Is this a current diagnosis for this admission?: YesPlan: Patient is on IV Lasix and we'll continue with that. The patient's creatinine has increased slightly but we will continue that for treatment of his heart failure. (3) COPD exacerbation Is this a current diagnosis for this admission?: YesPlan: We'll continue with nebulizers and IV steroids. (4) Bilateral pneumonia Qualifiers: Pneumonia type: due to unspecified organism Lung location: lower lobe of lung Qualified Code(s): J18.9 - Pneumonia, unspecified organism Is this a current diagnosis for this admission?: YesPlan: Is not clear whether the findings on chest x-ray are congestive heart failure versus early pneumonia. We have the possibility of pneumonia covered with Levaquin. (5) Hypertensive urgency Is this a current diagnosis for this admission?: YesPlan: Improving. The patient's blood pressures have returned to normal range. (6) Myxedema coma Is this a current diagnosis for this admission?: YesPlan: The patient has a very high TSH and low T4. He does have a history of taking Synthroid 200 g. Patient has gotten IV doses of Synthroid. Given his history of coronary artery disease I am hesitant to be more aggressive and we will give 100 g daily for now. (7) Sleep apnea Qualifiers: Sleep apnea type: unspecified type Qualified Code(s): G47.30 - Sleep apnea, unspecified Is this a current diagnosis for this admission?: YesPlan: Patient is currently intubated and ventilated. (8) Hypothyroidism Is this a current diagnosis for this admission?: YesPlan: Continue with Synthroid as above. (9) Obesity hypoventilation syndrome Is this a current diagnosis for this admission?: YesPlan: Patient is intubated and ventilated. (10) Diabetes mellitus type 2 in obese Is this a current diagnosis for this admission?: YesPlan: We'll continue with sliding scale insulin. (11) ARIADNA (obstructive sleep apnea) Is this a current diagnosis for this admission?: Yes (12) Stented coronary artery Is this a current diagnosis for this admission?: YesPlan: Continue the Plavix. - Time Time Spent with patient: 25-34 minutes - Inpatient Certification Medical Necessity: Need for IV Antibiotics - Plan Summary Plan Summary: We will try to extubate today.
--- NOTE | 2016-12-12 11:09 | PDOC PROGRESS REPORT ---
Subjective Progress Note for:: 12/12/16 Subjective:: Intubated Physical Exam Vital Signs: Temp Pulse Resp BP Pulse Ox 98.3 F 71 19 169/84 H 95 12/12/16 10:00 12/12/16 10:00 12/12/16 10:00 12/12/16 10:00 12/12/16 10:00 Intake & Output 12/11/16 12/12/16 12/13/16 06:59 06:59 06:59 Intake Total 683 6033 Output Total 1887 8920 1200 Balance -1202 -392 -1200 Weight 171.5 kg General appearance: PRESENT: no acute distress, disheveled, obese Head exam: PRESENT: atraumatic, normocephalic Eye exam: PRESENT: EOMI Mouth exam: PRESENT: neck supple, tongue midline, other - ET tube in place Respiratory exam: PRESENT: decreased breath sounds, prolonged expiratory phas, rales, rhonchi, symmetrical, unlabored Cardiovascular exam: PRESENT: RRR, +S1, +S2 Pulses: PRESENT: normal radial pulses GI/Abdominal exam: PRESENT: normal bowel sounds, soft. ABSENT: distended, guarding, mass, organolmegaly, rebound, tenderness Rectal exam: PRESENT: deferred Gentrourinary exam: PRESENT: indwelling catheter Extremities exam: PRESENT: +1 edema Skin exam: PRESENT: dry, warm Results Laboratory Results: 12/12/16 03:56 12/12/16 03:56 12/12/16 12/12/16 12/12/16 03:56 03:56 06:05 WBC 11.1 H RBC 4.42 Hgb 13.2 L Hct 39.2 MCV 89 MCH 29.8 MCHC 33.6 RDW 15.0 H Plt Count 220 Seg Neutrophils % 76.3 Lymphocytes % 15.2 Monocytes % 8.1 Eosinophils % 0.3 Basophils % 0.1 Absolute Neutrophils 8.4 H Absolute Lymphocytes 1.7 Absolute Monocytes 0.9 Absolute Eosinophils 0.0 Absolute Basophils 0.0 Carbonic Acid 1.29 HCO3/H2CO3 Ratio 26:1 ABG pH 7.52 H ABG pCO2 42.9 ABG pO2 60.8 L ABG HCO3 34.5 H ABG O2 Saturation 93.5 L ABG Base Excess 10.5 FiO2 50% Sodium 133.5 L Potassium 4.0 Chloride 87 L Carbon Dioxide 36 H Anion Gap 11 BUN 27 H Creatinine 1.48 H Est GFR ( Amer) > 60 Est GFR (Non-Af Amer) 50 L Glucose 213 H Calcium 8.7 Magnesium 1.5 L Total Bilirubin 0.7 AST 30 ALT 37 Alkaline Phosphatase 103 Total Protein 6.3 Albumin 3.0 L 12/11/16 12/11/16 00:49 07:25 Troponin I 0.051 0.036 Impressions: KUB X-Ray 12/11/16 00:39 IMPRESSION: Nasogastric tube extends below the diaphragm. Chest/Abdomen CTA 12/11/16 11:44 IMPRESSION: 1. NORMAL CTA OF THE CHEST. NO PULMONARY EMBOLI. 2. CARDIOMEGALY. PROMINENT AIRSPACE DISEASE IN THE RIGHT AND LEFT LOWER LOBES SECONDARY TO PNEUMONIA AND/OR ATELECTASIS. Chest X-Ray 12/12/16 06:00 IMPRESSION: OVERALL SLIGHT IMPROVEMENT COMPARED TO THE PRIOR STUDY DESCRIBED ABOVE. Assessment & Plan - Diagnosis (1) Acute on chronic diastolic (congestive) heart failure Is this a current diagnosis for this admission?: YesPlan: Patient is diuresing effectively (2) COPD exacerbation Is this a current diagnosis for this admission?: YesPlan: Bronchodilator therapy (3) Respiratory failure, acute and chronic Qualifiers: Respiratory failure complication: hypoxia and hypercapnia Qualified Code(s): J96.21 - Acute and chronic respiratory failure with hypoxia; J96.22 - Acute and chronic respiratory failure with hypercapnia Is this a current diagnosis for this admission?: YesPlan: Oxygenates and ventilating well suspect he has obesity hypoventilation syndrome and/or obstructive sleep apnea - Time Critical Time spent with patient: 25-34 minutes - 39 minutes
[2016-12-12] MEDS: DEXTROSE 5%-NORMAL SALINE 1,000 ML IV PRN (23:19)
[2016-12-13] MEDS: IPRATROPIUM/ALBUTEROL 0.5-2.5 MG/3 ML AMPUL NEB SCH ×4 (01:48→20:35)
[2016-12-13] MEDS: PROPOFOL 100 ML IV PRN ×7 (01:49→23:48)
[2016-12-13 04:05] LABS: ABSOLUTE LYMPHOCYTES (AUTO) 1.9 10^3/uL (0.5-4.7); ABSOLUTE MONOCYTES (AUTO) 0.7 10^3/uL (0.1-1.4); ABSOLUTE NEUT (AUTO) 7.1 10^3/uL (1.7-8.2); BASOPHILS % (AUTO) 0.3 % (0-2); EOSINOPHILS % (AUTO) 0.2 % (0-6); HEMATOCRIT 36.1 % (37.9-51.0); HEMOGLOBIN 12.3 g/dL (13.5-17.0); HGB HCT DIFFERENCE 0.8; LYMPHOCYTES % (AUTO) 19.7 % (13-45); MEAN CORPUSCULAR HEMOGLOBIN 30.7 pg (27.0-33.4); MEAN CORPUSCULAR HGB CONC 34.2 g/dL (32.0-36.0); MEAN CORPUSCULAR VOLUME 90 fl (80-97); MONOCYTES % (AUTO) 7.5 % (3-13); RED BLOOD COUNT 4.01 10^6/uL (4.35-5.55); RED CELL DISTRIBUTION WIDTH 15.1 % (11.5-14.0); SEGMENTED NEUTROPHILS % (AUTO) 72.3 % (42-78); WHITE BLOOD COUNT 9.9 10^3/uL (4.0-10.5)
[2016-12-13 04:18] LABS: ALANINE AMINOTRANSFERASE 39 U/L (21-72); ALBUMIN 2.9 g/dL (3.5-5.0); ALKALINE PHOSPHATASE 89 U/L (38-126); ANION GAP 10 (5-19); ASPARTATE AMINO TRANSFERASE 42 U/L (17-59); BILIRUBIN,TOTAL 0.5 mg/dL (0.2-1.3); BLOOD UREA NITROGEN 27 mg/dL (7-20); CALCIUM 8.3 mg/dL (8.4-10.2); CARBON DIOXIDE 36 mmol/L (22-30); CHLORIDE 94 mmol/L (98-107); CREATININE RESULT 1.36 mg/dL (0.52-1.25); GLUCOSE 207 mg/dL (75-110); MAGNESIUM 1.8 mg/dL (1.6-2.3); POTASSIUM 3.6 mmol/L (3.6-5.0); SODIUM 140.1 mmol/L (137-145)
[2016-12-13] MEDS: HEPARIN SOD (PORCINE) 5,000 UNIT/ML 1 ML SYRINGE SUBCUT SCH ×3 (05:09→21:31)
[2016-12-13] MEDS ORDERED: HYDROCORTISONE SOD SUCCINATE INJ/PF 100 MG/2 ML SDV ONE (05:44)
[2016-12-13 05:46] LABS: ARTERIAL BLOOD O2 SATURATION 92.3 % (94-98)
[2016-12-13] MEDS: HYDROCORTISONE SOD SUCCINATE INJ/PF 100 MG/2 ML SDV IV SCH ×3 (05:49→21:19)
[2016-12-13] MEDS: DEXTROSE 5%-NORMAL SALINE 1,000 ML IV PRN ×2 (08:35→17:38)
[2016-12-13] MEDS: FUROSEMIDE INJ/PF 40 MG/4 ML SDV IV SCH (10:00)
[2016-12-13] MEDS: FAMOTIDINE INJ/PF 20 MG/2 ML SDV IV SCH ×2 (10:00→21:32)
[2016-12-13] MEDS: METOPROLOL TARTRATE PF/INJ 5 MG/5 ML SDV IV SCH ×2 (10:00→21:33)
[2016-12-13] MEDS: CLOPIDOGREL BISULFATE 75 MG TABLET NG SCH (10:00)
[2016-12-13] MEDS: LEVOFLOXACIN 750 MG/D5W RTU 150 ML IV SCH (10:01)
[2016-12-13] MEDS: TIOTROPIUM BROMIDE DPI 5 CAP/KIT (18 MCG/CAP) IH SCH (10:02)
--- NOTE | 2016-12-13 11:17 | PDOC PROGRESS REPORT ---
Subjective Progress Note for:: 12/13/16 Subjective:: Patient is intubated and sedated. Patient did not do well enough yesterday to be extubated. Physical Exam Vital Signs: Temp Pulse Resp BP Pulse Ox 99.3 F 58 L 20 151/84 H 92 12/13/16 08:00 12/13/16 10:00 12/13/16 10:01 12/13/16 10:01 12/13/16 10:01 Intake & Output 12/12/16 12/13/16 12/14/16 06:59 06:59 06:59 Intake Total 3443 2938 Output Total 3835 5325 435 Balance -392 -2387 -435 Weight 169.9 kg General appearance: PRESENT: no acute distress Eye exam: PRESENT: conjunctiva pink. ABSENT: scleral icterus Ear exam: PRESENT: normal external ear exam Mouth exam: PRESENT: moist, tongue midline, other - ET tube present. Neck exam: ABSENT: JVD Respiratory exam: PRESENT: rhonchi - Course rhonchi in the bilateral bases. Cardiovascular exam: PRESENT: RRR. ABSENT: diastolic murmur, rubs, systolic murmur GI/Abdominal exam: PRESENT: normal bowel sounds, soft. ABSENT: distended, guarding, mass, organolmegaly, rebound, tenderness Extremities exam: ABSENT: calf tenderness, clubbing, pedal edema Neurological exam: PRESENT: other - Sedated Psychiatric exam: PRESENT: appropriate affect Skin exam: PRESENT: dry, intact, warm. ABSENT: cyanosis, rash Results Laboratory Results: 12/13/16 03:50 12/13/16 03:50 12/13/16 12/13/16 12/13/16 03:50 03:50 04:54 WBC 9.9 RBC 4.01 L Hgb 12.3 L Hct 36.1 L MCV 90 MCH 30.7 MCHC 34.2 RDW 15.1 H Plt Count 229 Seg Neutrophils % 72.3 Lymphocytes % 19.7 Monocytes % 7.5 Eosinophils % 0.2 Basophils % 0.3 Absolute Neutrophils 7.1 Absolute Lymphocytes 1.9 Absolute Monocytes 0.7 Absolute Eosinophils 0.0 Absolute Basophils 0.0 Carbonic Acid 1.34 HCO3/H2CO3 Ratio 28:1 ABG pH 7.55 H ABG pCO2 44.4 ABG pO2 56.0 L ABG HCO3 38.1 H ABG O2 Saturation 92.3 L ABG Base Excess 14.0 FiO2 50% Sodium 140.1 Potassium 3.6 Chloride 94 L Carbon Dioxide 36 H Anion Gap 10 BUN 27 H Creatinine 1.36 H Est GFR ( Amer) > 60 Est GFR (Non-Af Amer) 55 L Glucose 207 H Calcium 8.3 L Magnesium 1.8 Total Bilirubin 0.5 AST 42 ALT 39 Alkaline Phosphatase 89 Total Protein 6.0 L Albumin 2.9 L 12/11/16 12/11/16 00:49 07:25 Troponin I 0.051 0.036 Impressions: KUB X-Ray 12/11/16 00:39 IMPRESSION: Nasogastric tube extends below the diaphragm. Chest/Abdomen CTA 12/11/16 11:44 IMPRESSION: 1. NORMAL CTA OF THE CHEST. NO PULMONARY EMBOLI. 2. CARDIOMEGALY. PROMINENT AIRSPACE DISEASE IN THE RIGHT AND LEFT LOWER LOBES SECONDARY TO PNEUMONIA AND/OR ATELECTASIS. Chest X-Ray 12/13/16 06:00 IMPRESSION: SLIGHT WORSENING IN THE RIGHT BASILAR INFILTRATE. Assessment & Plan - Diagnosis (1) Respiratory failure, acute and chronic Qualifiers: Respiratory failure complication: hypoxia and hypercapnia Qualified Code(s): J96.21 - Acute and chronic respiratory failure with hypoxia Is this a current diagnosis for this admission?: YesPlan: Patient's medical history distress most likely secondary to pneumonia as well as congestive heart failure. We'll continue with the Levaquin. Patient also getting Lasix for congestive heart failure. Patient has improved and we we' ll continue to try to wean off the ventilator. (2) Acute on chronic diastolic (congestive) heart failure Is this a current diagnosis for this admission?: YesPlan: Patient is on IV Lasix and we'll continue with that. The patient's creatinine has remained stable. (3) COPD exacerbation Is this a current diagnosis for this admission?: YesPlan: We'll continue with nebulizers and IV steroids. (4) Bilateral pneumonia Qualifiers: Pneumonia type: due to unspecified organism Lung location: lower lobe of lung Qualified Code(s): J18.9 - Pneumonia, unspecified organism Is this a current diagnosis for this admission?: YesPlan: chest x-ray are congestive heart failure with early pneumonia. We have the possibility of pneumonia covered with Levaquin. (5) Hypertensive urgency Is this a current diagnosis for this admission?: YesPlan: Improving. The patient's blood pressures have returned to normal range. (6) Myxedema coma Is this a current diagnosis for this admission?: YesPlan: The patient has a very high TSH and low T4. He does have a history of taking Synthroid 200 g. Patient has gotten IV doses of Synthroid. Given his history of coronary artery disease I am hesitant to be more aggressive and we will give 100 g daily for now. (7) Sleep apnea Qualifiers: Sleep apnea type: unspecified type Qualified Code(s): G47.30 - Sleep apnea, unspecified Is this a current diagnosis for this admission?: YesPlan: Patient is currently intubated and ventilated. (8) Hypothyroidism Is this a current diagnosis for this admission?: YesPlan: Continue with Synthroid as above. (9) Obesity hypoventilation syndrome Is this a current diagnosis for this admission?: YesPlan: Patient is intubated and ventilated. (10) Diabetes mellitus type 2 in obese Is this a current diagnosis for this admission?: YesPlan: We'll continue with sliding scale insulin. We'll start Lantus today also. (11) ARIADNA (obstructive sleep apnea) Is this a current diagnosis for this admission?: Yes (12) Stented coronary artery Is this a current diagnosis for this admission?: YesPlan: Continue the Plavix. - Time Time Spent with patient: 25-34 minutes - Inpatient Certification Medical Necessity: Need for IV Antibiotics
[2016-12-13] MEDS ORDERED: INSULIN GLARGINE,HUM.REC.ANLOG 1,000 UNIT/10 ML UNIT SUBCUT ONE (11:30)
[2016-12-13] MEDS: INSULIN REG, HUMAN 100 UNIT/ML 3 ML VIAL (PYX) SUBCUT PRN ×2 (14:00→18:02)
--- NOTE | 2016-12-13 14:23 | PDOC CONSULTATION ---
Consultation Consult Date: 12/11/16 Attending physician:: TREVOR WHYTE History of Present Illness Admission Date/PCP: 12/10/16 23:40 ALONSO SHAHID MD History of Present Illness: DESIRAE MALLORY is a 50 year old morbidly obese male, with underlying hypo-thyroidism, llr-ayaygel-bbhgnkeed diabetes mellitus, chronic noncompliance with multiple aspects of his health care including medications, coronary artery disease, status post stent 3, with last stent 2016 at [facility], COPD, and asthma, who presents to the emergency room for evaluation of above complaint. Patient was given a trial of BiPAP which was unsuccessful and the patient remained lethargic subsequently he was intubated Past Medical History Cardiac Medical History: Reports: Atrial Fibrillation, Congestive Heart Failure - DIASTOLIC, Myocardial Infarction - x2, Hyperlipidema, Hypertension, Other - stent X 3, last 2015 Denies: DVT, Pulmonary Embolism Pulmonary Medical History: Reports: Asthma, Chronic Obstructive Pulmonary Disease (COPD), Sleep Apnea - Noncompliant with C-PAP at home, Tuberculosis - History of EENT Medical History: Reports: Ears - partial hearing loss, Other - EASY bruising Denies: Eyes, Throat Neurological Medical History: Reports: Other - Hx TIA vs CVA Denies: Hemorrhagic CVA, Seizures Endocrine Medical History: Reports: Diabetes Mellitus Type 2, Hypothyroidism Denies: Hyperthyroidism Renal/ Medical History: Reports: None GI Medical History: Reports: Gastroesophageal Reflux Disease Denies: Cirrhosis, Hepatitis, Peptic Ulcer Disease Musculoskeltal Medical History: Reports: Arthritis Psychiatric Medical History: Reports: Bipolar Disorder, Depression, General Anxiety Disorder, Tobacco Dependency Denies: Alcohol Dependency, Substance Abuse Hematology: Reports: Other - EASY bruising Infectious Medical History: Denies: Hepatitis B, Hepatitis C Past Surgical History Past Surgical History: Reports: Appendectomy, Coronary Stent - X 3; last 2015, [facility] Denies: Pacemaker Social History Smoking Status: Smoker,Current Status Unk Passive smoke exposure as: Both Frequency of Alcohol Use: None Hx Recreational Drug Use: No Drugs: Marijuana Hx Prescription Drug Abuse: No - Advance Directive Resuscitation Status: Full Code Family History Family History: CVA, Other - DVT, multiple members Parental Family History Reviewed: No Children Family History Reviewed: No Sibling(s) Family History Reviewed.: No Medication/Allergy Home Medications: Atorvastatin Calcium 40 mg PO DAILY 06/02/14 Nitroglycerin 1 tab PO PRN PRN 06/02/14 Furosemide [Lasix 40 mg Tablet] 40 mg PO QAM #30 tablet 06/05/14 Candesartan Cilexetil [Candesartan Cilexetil] 1 tab PO DAILY 10/09/16 Clopidogrel Bisulfate [Clopidogrel] 1 tab PO DAILY 10/09/16 Fluticasone Propionate 1 spray IH DAILY 10/09/16 Isosorbide Mononitrate [Isosorbide Mononitrate ER] 30 mg PO DAILY 10/09/16 Liraglutide [Victoza 2-Shemar] 0.1 ml SUBCUT DAILY 10/09/16 Metoprolol Tartrate [Metoprolol Tartrate] 25 mg PO DAILY 10/09/16 Naproxen [Naproxen] 500 mg PO BID PRN 10/09/16 Sertraline HCl [Sertraline HCl] 100 mg PO DAILY 10/09/16 Tiotropium [place] [Spiriva Handihaler 5 Cap/Kit (18 Mcg/Cap)] 1 cap IH DAILY Acetaminophen/Pyrilam/Pamabrom [Pamprin Multi-Symptom Tab] 1 tab PO Q6 PRN 12/11 Levothyroxine Sodium [Synthroid 0.025 mg Tablet] 25 mcg PO DAILY 12/11/16 Allergies/Adverse Reactions: codeine [Codeine] Allergy (Severe, Verified 10/09/16 07:46) Shellfish * [Shellfish] Allergy (Verified 10/09/16 07:46) Review of Systems ROS unobtainable: Due to endotracheal tube Physical Exam Vital Signs: Temp Pulse Resp BP Pulse Ox 98.5 F 72 17 134/88 H 98 12/11/16 08:00 12/11/16 08:32 12/11/16 08:32 12/11/16 08:00 12/11/16 08:32 Intake & Output 12/10/16 12/11/16 12/12/16 06:59 06:59 06:59 Intake Total 683 Output Total 1885 150 Balance -1202 -150 Weight 171.5 kg General appearance: PRESENT: no acute distress, disheveled, morbidly obese Head exam: PRESENT: atraumatic, normocephalic Eye exam: PRESENT: conjunctiva pale Mouth exam: PRESENT: moist, neck supple, tongue midline, other - Endotracheal tube in place Neck exam: ABSENT: carotid bruit, JVD, lymphadenopathy, thyromegaly Respiratory exam: PRESENT: crackles, decreased breath sounds, prolonged expiratory phas, rhonchi, symmetrical, unlabored, wheezes Cardiovascular exam: PRESENT: RRR, +S1, +S2 Pulses: PRESENT: normal radial pulses GI/Abdominal exam: PRESENT: normal bowel sounds, soft. ABSENT: distended, guarding, mass, organolmegaly, rebound, tenderness Rectal exam: PRESENT: deferred Gentrourinary exam: PRESENT: indwelling catheter Extremities exam: PRESENT: +1 edema Skin exam: PRESENT: dry, intact Results Laboratory Results: 12/11/16 07:25 12/11/16 12/11/16 12/11/16 02:35 07:25 07:25 WBC 14.3 H RBC 4.46 Hgb 13.3 L Hct 40.2 MCV 90 MCH 29.7 MCHC 33.0 RDW 14.8 H Plt Count 214 Seg Neutrophils % Not Reportable Lymphocytes % Not Reportable Monocytes % Not Reportable Eosinophils % Not Reportable Basophils % Not Reportable Absolute Neutrophils Not Reportable Absolute Lymphocytes Not Reportable Absolute Monocytes Not Reportable Absolute Eosinophils Not Reportable Absolute Basophils Not Reportable Carbonic Acid 2.21 H HCO3/H2CO3 Ratio 17:1 ABG pH 7.35 ABG pCO2 73.4 H* ABG pO2 59.4 L ABG HCO3 39.5 H ABG O2 Saturation 88.3 L ABG Base Excess 10.6 FiO2 100% Sodium Cancelled Potassium Cancelled Chloride Cancelled Carbon Dioxide Cancelled Anion Gap Cancelled BUN Cancelled Creatinine Cancelled Est GFR ( Amer) Cancelled Est GFR (Non-Af Amer) Cancelled Glucose Cancelled Calcium Cancelled Triglycerides 12/11/16 07:25 WBC RBC Hgb Hct MCV MCH MCHC RDW Plt Count Seg Neutrophils % Lymphocytes % Monocytes % Eosinophils % Basophils % Absolute Neutrophils Absolute Lymphocytes Absolute Monocytes Absolute Eosinophils Absolute Basophils Carbonic Acid HCO3/H2CO3 Ratio ABG pH ABG pCO2 ABG pO2 ABG HCO3 ABG O2 Saturation ABG Base Excess FiO2 Sodium Potassium Chloride Carbon Dioxide Anion Gap BUN Creatinine Est GFR ( Amer) Est GFR (Non-Af Amer) Glucose Calcium Triglycerides Cancelled 12/11/16 12/11/16 00:49 07:25 Troponin I 0.051 0.036 Impressions: Chest X-Ray 12/10/16 19:00 IMPRESSION: CARDIAC ENLARGEMENT. VASCULAR CONGESTION. KUB X-Ray 12/11/16 00:39 IMPRESSION: Nasogastric tube extends below the diaphragm. Assessment & Plan - Diagnosis (1) Acute on chronic diastolic (congestive) heart failure Is this a current diagnosis for this admission?: YesPlan: As decided by primary care (2) CHF (congestive heart failure) Qualifiers: Congestive heart failure type: unspecified congestive heart failure type Congestive heart failure chronicity: acute on chronic Qualified Code(s): I50.9 - Heart failure, unspecified Is this a current diagnosis for this admission?: YesPlan: Judicious use of diuretics (3) Respiratory failure, acute and chronic Qualifiers: Respiratory failure complication: hypoxia and hypercapnia Qualified Code(s): J96.21 - Acute and chronic respiratory failure with hypoxia Is this a current diagnosis for this admission?: YesPlan: Oxygenates and ventilating well suspect he has obesity hypoventilation syndrome and/or obstructive sleep apnea (4) Sleep apnea Qualifiers: Is this a current diagnosis for this admission?: YesPlan: Ideally the patient would use a trilogy ventilator at home which would help for obesity hypoventilation as well as obstructive sleep apnea (5) Noncompliance Is this a current diagnosis for this admission?: YesPlan: Unchanged - Time Critical Time spent with patient: 35 or more minutes - 55 minutes
--- NOTE | 2016-12-13 14:26 | PDOC PROGRESS REPORT ---
Subjective Progress Note for:: 12/13/16 Subjective:: Intubated arousable lethargic Physical Exam Vital Signs: Temp Pulse Resp BP Pulse Ox 99.3 F 58 L 20 151/84 H 92 12/13/16 08:00 12/13/16 10:00 12/13/16 10:01 12/13/16 10:01 12/13/16 10:01 Intake & Output 12/12/16 12/13/16 12/14/16 06:59 06:59 06:59 Intake Total 3443 2938 Output Total 3835 5325 435 Balance -392 -2387 -435 Weight 169.9 kg General appearance: PRESENT: no acute distress, cooperative, disheveled, morbidly obese Head exam: PRESENT: atraumatic, normocephalic Eye exam: PRESENT: conjunctiva pale, EOMI Mouth exam: PRESENT: moist, neck supple, tongue midline, other - ET tube in place Neck exam: ABSENT: carotid bruit, JVD, lymphadenopathy, thyromegaly Respiratory exam: PRESENT: decreased breath sounds, prolonged expiratory phas, rhonchi, symmetrical, unlabored, wheezes Cardiovascular exam: PRESENT: RRR, +S1, +S2 Pulses: PRESENT: normal radial pulses GI/Abdominal exam: PRESENT: normal bowel sounds, soft. ABSENT: distended, guarding, mass, organolmegaly, rebound, tenderness Rectal exam: PRESENT: deferred Gentrourinary exam: PRESENT: indwelling catheter Neurological exam: PRESENT: awake Skin exam: PRESENT: dry, intact, warm Results Laboratory Results: 12/13/16 03:50 12/13/16 03:50 12/13/16 12/13/16 12/13/16 03:50 03:50 04:54 WBC 9.9 RBC 4.01 L Hgb 12.3 L Hct 36.1 L MCV 90 MCH 30.7 MCHC 34.2 RDW 15.1 H Plt Count 229 Seg Neutrophils % 72.3 Lymphocytes % 19.7 Monocytes % 7.5 Eosinophils % 0.2 Basophils % 0.3 Absolute Neutrophils 7.1 Absolute Lymphocytes 1.9 Absolute Monocytes 0.7 Absolute Eosinophils 0.0 Absolute Basophils 0.0 Carbonic Acid 1.34 HCO3/H2CO3 Ratio 28:1 ABG pH 7.55 H ABG pCO2 44.4 ABG pO2 56.0 L ABG HCO3 38.1 H ABG O2 Saturation 92.3 L ABG Base Excess 14.0 FiO2 50% Sodium 140.1 Potassium 3.6 Chloride 94 L Carbon Dioxide 36 H Anion Gap 10 BUN 27 H Creatinine 1.36 H Est GFR ( Amer) > 60 Est GFR (Non-Af Amer) 55 L Glucose 207 H Calcium 8.3 L Magnesium 1.8 Total Bilirubin 0.5 AST 42 ALT 39 Alkaline Phosphatase 89 Total Protein 6.0 L Albumin 2.9 L 12/11/16 12/11/16 00:49 07:25 Troponin I 0.051 0.036 Impressions: KUB X-Ray 12/11/16 00:39 IMPRESSION: Nasogastric tube extends below the diaphragm. Chest/Abdomen CTA 12/11/16 11:44 IMPRESSION: 1. NORMAL CTA OF THE CHEST. NO PULMONARY EMBOLI. 2. CARDIOMEGALY. PROMINENT AIRSPACE DISEASE IN THE RIGHT AND LEFT LOWER LOBES SECONDARY TO PNEUMONIA AND/OR ATELECTASIS. Chest X-Ray 12/13/16 06:00 IMPRESSION: SLIGHT WORSENING IN THE RIGHT BASILAR INFILTRATE. Assessment & Plan - Diagnosis (1) Acute on chronic diastolic (congestive) heart failure Is this a current diagnosis for this admission?: YesPlan: Patient in negative fluid balance of the last 72 hours (2) COPD exacerbation Is this a current diagnosis for this admission?: YesPlan: Bronchodilator therapy, supplemental oxygen and prednisone (3) Respiratory failure, acute and chronic Qualifiers: Respiratory failure complication: hypoxia and hypercapnia Qualified Code(s): J96.21 - Acute and chronic respiratory failure with hypoxia Is this a current diagnosis for this admission?: YesPlan: Requires FiO2's over 50% and PEEP to 10-12 cm range - Time Critical Time spent with patient: 35 or more minutes - 50 minutes
[2016-12-13] MEDS ORDERED: LEVOFLOXACIN 750 MG/D5W RTU 750 MG/150 ML RTUPB IV ONE (16:15)
[2016-12-14] MEDS: INSULIN REG, HUMAN 100 UNIT/ML 3 ML VIAL (PYX) SUBCUT PRN (01:01)
[2016-12-14] MEDS: DEXTROSE 5%-NORMAL SALINE 1,000 ML IV PRN ×4 (01:02→22:42)
[2016-12-14] MEDS: PROPOFOL 100 ML IV PRN ×6 (01:02→21:16)
[2016-12-14] MEDS: IPRATROPIUM/ALBUTEROL 0.5-2.5 MG/3 ML AMPUL NEB SCH ×4 (03:16→20:11)
[2016-12-14 04:31] LABS: ABSOLUTE LYMPHOCYTES (AUTO) 1.9 10^3/uL (0.5-4.7); ABSOLUTE MONOCYTES (AUTO) 0.6 10^3/uL (0.1-1.4); ABSOLUTE NEUT (AUTO) 8.1 10^3/uL (1.7-8.2); BASOPHILS % (AUTO) 0.3 % (0-2); EOSINOPHILS % (AUTO) 0.1 % (0-6); HEMATOCRIT 35.7 % (37.9-51.0); HEMOGLOBIN 12.1 g/dL (13.5-17.0); HGB HCT DIFFERENCE 0.6; LYMPHOCYTES % (AUTO) 17.5 % (13-45); MEAN CORPUSCULAR HEMOGLOBIN 30.4 pg (27.0-33.4); MEAN CORPUSCULAR HGB CONC 33.9 g/dL (32.0-36.0); MEAN CORPUSCULAR VOLUME 90 fl (80-97); MONOCYTES % (AUTO) 5.7 % (3-13); RED BLOOD COUNT 3.98 10^6/uL (4.35-5.55); RED CELL DISTRIBUTION WIDTH 15.1 % (11.5-14.0); SEGMENTED NEUTROPHILS % (AUTO) 76.4 % (42-78); WHITE BLOOD COUNT 10.7 10^3/uL (4.0-10.5)
[2016-12-14 04:41] LABS: ALBUMIN 3.2 g/dL (3.5-5.0); ANION GAP 9 (5-19); BLOOD UREA NITROGEN 21 mg/dL (7-20); CARBON DIOXIDE 37 mmol/L (22-30); CHLORIDE 96 mmol/L (98-107); CREATININE RESULT 1.06 mg/dL (0.52-1.25); GLUCOSE 164 mg/dL (75-110); SODIUM 142.1 mmol/L (137-145); TOTAL PROTEIN 5.8 g/dL (6.3-8.2)
[2016-12-14 04:42] LABS: ALANINE AMINOTRANSFERASE 37 U/L (21-72); ALKALINE PHOSPHATASE 89 U/L (38-126); ASPARTATE AMINO TRANSFERASE 37 U/L (17-59); BILIRUBIN,TOTAL 0.5 mg/dL (0.2-1.3); MAGNESIUM 1.8 mg/dL (1.6-2.3)
[2016-12-14 04:51] LABS: TRIGLYCERIDES 1064 mg/dL (<150)
[2016-12-14 04:55] LABS: POTASSIUM 2.8 mmol/L (3.6-5.0)
[2016-12-14 05:36] LABS: ARTERIAL BLOOD BASE EXCESS 14.3 mmol/L; ARTERIAL BLOOD O2 SATURATION 90.9 % (94-98)
[2016-12-14] MEDS: POTASSI CL 20 MEQ/50 ML RIDER 20 MEQ/50 ML RTUPB IV SCH ×3 (05:45→08:49)
[2016-12-14] MEDS: HEPARIN SOD (PORCINE) 5,000 UNIT/ML 1 ML SYRINGE SUBCUT SCH ×3 (05:46→21:15)
[2016-12-14] MEDS ORDERED: HYDROCORTISONE SOD SUCCINATE INJ/PF 100 MG/2 ML SDV ONE (05:58)
[2016-12-14] MEDS: HYDROCORTISONE SOD SUCCINATE INJ/PF 100 MG/2 ML SDV IV SCH ×3 (06:04→21:13)
[2016-12-14] MEDS: FUROSEMIDE INJ/PF 40 MG/4 ML SDV IV SCH (09:43)
[2016-12-14] MEDS: LEVOTHYROXINE SODIUM INJ/PF 0.1 MG SDV IV SCH (09:43)
[2016-12-14] MEDS: FAMOTIDINE INJ/PF 20 MG/2 ML SDV IV SCH ×2 (09:43→21:16)
[2016-12-14] MEDS: LEVOFLOXACIN 750 MG/D5W RTU 150 ML IV SCH (09:44)
[2016-12-14] MEDS: CLOPIDOGREL BISULFATE 75 MG TABLET NG SCH (09:44)
[2016-12-14] MEDS: METOPROLOL TARTRATE PF/INJ 5 MG/5 ML SDV IV SCH ×2 (09:45→21:17)
[2016-12-14] MEDS: TIOTROPIUM BROMIDE DPI 5 CAP/KIT (18 MCG/CAP) IH SCH (09:45)
--- NOTE | 2016-12-14 11:30 | PDOC PROGRESS REPORT ---
Subjective Progress Note for:: 12/14/16 Subjective:: Patient is intubated and sedated. Patient did not do well enough yesterday to be extubated. Physical Exam Vital Signs: Temp Pulse Resp BP Pulse Ox 98.9 F 50 L 10 L 163/87 H 94 12/14/16 10:00 12/14/16 10:00 12/14/16 11:00 12/14/16 11:00 12/14/16 11:00 Intake & Output 12/13/16 12/14/16 12/15/16 06:59 06:59 06:59 Intake Total 2938 3003 Output Total 5325 3640 210 Balance -2387 -637 -210 Weight 165.9 kg General appearance: PRESENT: no acute distress, morbidly obese Eye exam: PRESENT: conjunctiva pink. ABSENT: scleral icterus Mouth exam: PRESENT: moist, tongue midline Neck exam: ABSENT: JVD Respiratory exam: PRESENT: clear to auscultation laxmi. ABSENT: rales, rhonchi, wheezes Cardiovascular exam: PRESENT: RRR. ABSENT: diastolic murmur, rubs, systolic murmur GI/Abdominal exam: PRESENT: normal bowel sounds, soft. ABSENT: distended, guarding, mass, organolmegaly, rebound, tenderness Extremities exam: ABSENT: calf tenderness, clubbing, pedal edema Neurological exam: PRESENT: alert, awake Psychiatric exam: PRESENT: appropriate affect Skin exam: PRESENT: dry, intact, warm. ABSENT: cyanosis, rash Results Laboratory Results: 12/14/16 03:32 12/14/16 03:32 12/14/16 12/14/16 12/14/16 03:32 03:32 05:20 WBC 10.7 H RBC 3.98 L Hgb 12.1 L Hct 35.7 L MCV 90 MCH 30.4 MCHC 33.9 RDW 15.1 H Plt Count 210 Seg Neutrophils % 76.4 Lymphocytes % 17.5 Monocytes % 5.7 Eosinophils % 0.1 Basophils % 0.3 Absolute Neutrophils 8.1 Absolute Lymphocytes 1.9 Absolute Monocytes 0.6 Absolute Eosinophils 0.0 Absolute Basophils 0.0 Carbonic Acid 1.40 H HCO3/H2CO3 Ratio 27:1 ABG pH 7.54 H ABG pCO2 46.6 H ABG pO2 53.4 L ABG HCO3 38.8 H ABG O2 Saturation 90.9 L ABG Base Excess 14.3 FiO2 50% Sodium 142.1 Potassium 2.8 L* Chloride 96 L Carbon Dioxide 37 H Anion Gap 9 BUN 21 H Creatinine 1.06 Est GFR ( Amer) > 60 Est GFR (Non-Af Amer) > 60 Glucose 164 H Calcium 8.0 L Magnesium 1.8 Total Bilirubin 0.5 AST 37 ALT 37 Alkaline Phosphatase 89 Total Protein 5.8 L Albumin 3.2 L Triglycerides 1064 H 12/11/16 00:00 Tracheal Aspirate Gram Stain - Final 12/11/16 12/11/16 00:49 07:25 Troponin I 0.051 0.036 Impressions: KUB X-Ray 12/11/16 00:39 IMPRESSION: Nasogastric tube extends below the diaphragm. Chest/Abdomen CTA 12/11/16 11:44 IMPRESSION: 1. NORMAL CTA OF THE CHEST. NO PULMONARY EMBOLI. 2. CARDIOMEGALY. PROMINENT AIRSPACE DISEASE IN THE RIGHT AND LEFT LOWER LOBES SECONDARY TO PNEUMONIA AND/OR ATELECTASIS. Chest X-Ray 12/14/16 06:00 IMPRESSION: SLIGHT IMPROVEMENT IN THE RIGHT BASILAR DENSITY. Assessment & Plan - Diagnosis (1) Respiratory failure, acute and chronic Qualifiers: Respiratory failure complication: hypoxia and hypercapnia Qualified Code(s): J96.21 - Acute and chronic respiratory failure with hypoxia Is this a current diagnosis for this admission?: YesPlan: Patient's medical history distress most likely secondary to pneumonia as well as congestive heart failure. We'll continue with the Levaquin. Patient also getting Lasix for congestive heart failure. Patient has improved and we we' ll continue to try to wean off the ventilator. (2) Acute on chronic diastolic (congestive) heart failure Is this a current diagnosis for this admission?: YesPlan: Patient is on IV Lasix and we'll continue with that. The patient's creatinine has remained stable. (3) COPD exacerbation Is this a current diagnosis for this admission?: YesPlan: We'll continue with nebulizers and IV steroids. (4) Bilateral pneumonia Qualifiers: Pneumonia type: due to unspecified organism Lung location: lower lobe of lung Qualified Code(s): J18.9 - Pneumonia, unspecified organism Is this a current diagnosis for this admission?: YesPlan: chest x-ray are congestive heart failure with early pneumonia. We have the pneumonia covered with Levaquin. (5) Hypertensive urgency Is this a current diagnosis for this admission?: YesPlan: Improving. The patient's blood pressures have returned to normal range. (6) Myxedema coma Is this a current diagnosis for this admission?: YesPlan: The patient has a very high TSH and low T4. He does have a history of taking Synthroid 200 g. will give 100 g daily for now. (7) Sleep apnea Qualifiers: Sleep apnea type: unspecified type Qualified Code(s): G47.30 - Sleep apnea, unspecified Is this a current diagnosis for this admission?: YesPlan: Patient is currently intubated and ventilated. (8) Hypothyroidism Is this a current diagnosis for this admission?: YesPlan: Continue with Synthroid as above. (9) Obesity hypoventilation syndrome Is this a current diagnosis for this admission?: YesPlan: Patient is intubated and ventilated. (10) Diabetes mellitus type 2 in obese Is this a current diagnosis for this admission?: YesPlan: We'll continue with sliding scale insulin. We'll start Lantus today also. (11) ARIADNA (obstructive sleep apnea) Is this a current diagnosis for this admission?: Yes (12) Stented coronary artery Is this a current diagnosis for this admission?: YesPlan: Continue the Plavix. - Time Time Spent with patient: 25-34 minutes - Inpatient Certification Medical Necessity: Need for IV Antibiotics
[2016-12-14] MEDS: INSULIN GLARGINE,HUM.REC.ANLOG 300 UNIT/3 ML INSULN.PEN SUBCUT SCH (21:14)
[2016-12-15] MEDS: IPRATROPIUM/ALBUTEROL 0.5-2.5 MG/3 ML AMPUL NEB SCH ×4 (02:14→20:21)
[2016-12-15] MEDS: PROPOFOL 100 ML IV PRN ×11 (03:19→23:37)
[2016-12-15 04:50] LABS: ABSOLUTE LYMPHOCYTES (AUTO) 1.2 10^3/uL (0.5-4.7); ABSOLUTE MONOCYTES (AUTO) 0.5 10^3/uL (0.1-1.4); BASOPHILS % (AUTO) 0.5 % (0-2); EOSINOPHILS % (AUTO) 0.2 % (0-6); HEMATOCRIT 36.3 % (37.9-51.0); HGB HCT DIFFERENCE -0.3; LYMPHOCYTES % (AUTO) 13.8 % (13-45); MEAN CORPUSCULAR HGB CONC 33.2 g/dL (32.0-36.0); MEAN CORPUSCULAR VOLUME 90 fl (80-97); MONOCYTES % (AUTO) 5.4 % (3-13); RED BLOOD COUNT 4.02 10^6/uL (4.35-5.55); RED CELL DISTRIBUTION WIDTH 15.3 % (11.5-14.0); SEGMENTED NEUTROPHILS % (AUTO) 80.1 % (42-78); WHITE BLOOD COUNT 8.8 10^3/uL (4.0-10.5)
[2016-12-15 05:06] LABS: ANION GAP 7 (5-19); BLOOD UREA NITROGEN 16 mg/dL (7-20); CALCIUM 8.2 mg/dL (8.4-10.2); CARBON DIOXIDE 35 mmol/L (22-30); CHLORIDE 100 mmol/L (98-107); CREATININE RESULT 0.99 mg/dL (0.52-1.25); GLUCOSE 208 mg/dL (75-110); SODIUM 141.9 mmol/L (137-145)
[2016-12-15 05:18] LABS: POTASSIUM 2.8 mmol/L (3.6-5.0)
[2016-12-15] MEDS ORDERED: POTASSIUM CHLORIDE 20 MEQ/15 ML UDCUP NG ONE (05:30)
[2016-12-15] MEDS: HYDROCORTISONE SOD SUCCINATE INJ/PF 100 MG/2 ML SDV IV SCH ×3 (06:13→22:19)
[2016-12-15] MEDS: POTASSI CL 20 MEQ/50 ML RIDER 20 MEQ/50 ML RTUPB IV SCH ×2 (06:19→09:03)
[2016-12-15] MEDS ORDERED: HEPARIN SOD (PORCINE) 5,000 UNIT/ML 1 ML SYRINGE ONE (06:20)
[2016-12-15] MEDS: HEPARIN SOD (PORCINE) 5,000 UNIT/ML 1 ML SYRINGE SUBCUT SCH ×3 (06:26→22:20)
[2016-12-15 06:30] LABS: ARTERIAL BLOOD BASE EXCESS 9.5 mmol/L; ARTERIAL BLOOD O2 SATURATION 74.5 % (94-98)
[2016-12-15 07:06] LABS: ARTERIAL BLOOD BASE EXCESS 9.9 mmol/L
[2016-12-15] MEDS: FAMOTIDINE INJ/PF 20 MG/2 ML SDV IV SCH ×2 (10:02→22:19)
[2016-12-15] MEDS: CLOPIDOGREL BISULFATE 75 MG TABLET NG SCH (10:02)
[2016-12-15] MEDS: FUROSEMIDE INJ/PF 40 MG/4 ML SDV IV SCH (10:02)
[2016-12-15] MEDS: LEVOFLOXACIN 750 MG/D5W RTU 150 ML IV SCH (10:03)
[2016-12-15] MEDS: METOPROLOL TARTRATE PF/INJ 5 MG/5 ML SDV IV SCH ×2 (11:05→22:21)
[2016-12-15] MEDS: TIOTROPIUM BROMIDE DPI 5 CAP/KIT (18 MCG/CAP) IH SCH (11:05)
[2016-12-15] MEDS: LEVOTHYROXINE SODIUM INJ/PF 0.1 MG SDV IV SCH (11:11)
[2016-12-15] MEDS ORDERED: MIDAZOLAM 2 MG/2 ML INJ ONE (12:14)
[2016-12-15] MEDS ORDERED: VECURONIUM BROMIDE INJ 10 MG VIAL IV ONE ×2 (12:24→12:45)
[2016-12-15] MEDS ORDERED: MIDAZOLAM 2 MG/2 ML INJ IV ONE (12:45)
[2016-12-15] MEDS ORDERED: ACETYLCYSTEINE 20% SOLN 800 MG/4 ML VIAL.NEB NEB PRN (13:08)
--- NOTE | 2016-12-15 13:38 | PDOC PROGRESS REPORT ---
Subjective Progress Note for:: 12/15/16 Subjective:: Patient is intubated but is awake and able to answer yes no questions. Physical Exam Vital Signs: Temp Pulse Resp BP Pulse Ox 98.2 F 49 L 18 134/81 H 98 12/15/16 12:00 12/15/16 12:00 12/15/16 12:00 12/15/16 12:00 12/15/16 12:00 Intake & Output 12/14/16 12/15/16 12/16/16 06:59 06:59 06:59 Intake Total 3003 4200 Output Total 3640 3165 1175 Balance -637 1035 -1175 Weight 165.9 kg 167.6 kg General appearance: PRESENT: no acute distress Eye exam: PRESENT: conjunctiva pink. ABSENT: scleral icterus Mouth exam: PRESENT: moist, tongue midline, other - ET tube in place. Neck exam: ABSENT: JVD Respiratory exam: PRESENT: clear to auscultation laxmi. ABSENT: rales, rhonchi, wheezes Cardiovascular exam: PRESENT: RRR. ABSENT: diastolic murmur, rubs, systolic murmur GI/Abdominal exam: PRESENT: normal bowel sounds, soft. ABSENT: distended, guarding, mass, organolmegaly, rebound, tenderness Neurological exam: PRESENT: alert, awake Psychiatric exam: PRESENT: appropriate affect Skin exam: PRESENT: dry, intact, warm. ABSENT: cyanosis, rash Results Laboratory Results: 12/15/16 04:34 12/15/16 04:34 12/15/16 12/15/16 12/15/16 04:34 04:34 06:05 WBC 8.8 RBC 4.02 L Hgb 12.0 L Hct 36.3 L MCV 90 MCH 30.0 MCHC 33.2 RDW 15.3 H Plt Count 186 Seg Neutrophils % 80.1 H Lymphocytes % 13.8 Monocytes % 5.4 Eosinophils % 0.2 Basophils % 0.5 Absolute Neutrophils 7.0 Absolute Lymphocytes 1.2 Absolute Monocytes 0.5 Absolute Eosinophils 0.0 Absolute Basophils 0.0 Carbonic Acid 1.35 HCO3/H2CO3 Ratio 25:1 ABG pH 7.50 H ABG pCO2 45.0 ABG pO2 36.7 L* ABG HCO3 33.9 H ABG O2 Saturation 74.5 L ABG Base Excess 9.5 FiO2 60% Sodium 141.9 Potassium 2.8 L* Chloride 100 Carbon Dioxide 35 H Anion Gap 7 BUN 16 Creatinine 0.99 Est GFR ( Amer) > 60 Est GFR (Non-Af Amer) > 60 Glucose 208 H Calcium 8.2 L 12/15/16 06:45 WBC RBC Hgb Hct MCV MCH MCHC RDW Plt Count Seg Neutrophils % Lymphocytes % Monocytes % Eosinophils % Basophils % Absolute Neutrophils Absolute Lymphocytes Absolute Monocytes Absolute Eosinophils Absolute Basophils Carbonic Acid 1.32 HCO3/H2CO3 Ratio 25:1 ABG pH 7.51 H ABG pCO2 43.8 ABG pO2 67.9 L ABG HCO3 34.1 H ABG O2 Saturation 95.0 ABG Base Excess 9.9 FiO2 60% Sodium Potassium Chloride Carbon Dioxide Anion Gap BUN Creatinine Est GFR ( Amer) Est GFR (Non-Af Amer) Glucose Calcium 12/11/16 00:00 Tracheal Aspirate Gram Stain - Final 12/11/16 12/11/16 00:49 07:25 Troponin I 0.051 0.036 Impressions: KUB X-Ray 12/11/16 00:39 IMPRESSION: Nasogastric tube extends below the diaphragm. Chest/Abdomen CTA 12/11/16 11:44 IMPRESSION: 1. NORMAL CTA OF THE CHEST. NO PULMONARY EMBOLI. 2. CARDIOMEGALY. PROMINENT AIRSPACE DISEASE IN THE RIGHT AND LEFT LOWER LOBES SECONDARY TO PNEUMONIA AND/OR ATELECTASIS. Chest X-Ray 12/14/16 11:45 IMPRESSION: Dense consolidation left lower lobe atelectasis versus pneumonia Endotracheal tube, nasogastric tube in good positioning. Assessment & Plan - Diagnosis (1) Respiratory failure, acute and chronic Qualifiers: Respiratory failure complication: hypoxia and hypercapnia Qualified Code(s): J96.21 - Acute and chronic respiratory failure with hypoxia Is this a current diagnosis for this admission?: YesPlan: Patient's respiratory distress is most likely secondary to pneumonia as well as congestive heart failure. We'll continue with the Levaquin. Patient also getting Lasix for congestive heart failure. Patient has improved and we we' ll continue to try to wean off the ventilator. (2) Acute on chronic diastolic (congestive) heart failure Is this a current diagnosis for this admission?: YesPlan: Patient is on IV Lasix and we'll continue with that. The patient's creatinine has remained stable. (3) COPD exacerbation Is this a current diagnosis for this admission?: YesPlan: We'll continue with nebulizers and IV steroids. (4) Bilateral pneumonia Qualifiers: Pneumonia type: due to unspecified organism Lung location: lower lobe of lung Qualified Code(s): J18.9 - Pneumonia, unspecified organism Is this a current diagnosis for this admission?: YesPlan: chest x-ray shows congestive heart failure with pneumonia. We have the pneumonia covered with Levaquin. (5) Hypertensive urgency Is this a current diagnosis for this admission?: YesPlan: Improving. The patient's blood pressures have returned to normal range. (6) Myxedema coma Is this a current diagnosis for this admission?: YesPlan: The patient has a very high TSH and low T4. He does have a history of taking Synthroid 200 g. will give 100 g daily for now. (7) Sleep apnea Qualifiers: Sleep apnea type: unspecified type Qualified Code(s): G47.30 - Sleep apnea, unspecified Is this a current diagnosis for this admission?: YesPlan: Patient is currently intubated and ventilated. (8) Hypothyroidism Is this a current diagnosis for this admission?: YesPlan: Continue with Synthroid as above. (9) Obesity hypoventilation syndrome Is this a current diagnosis for this admission?: YesPlan: Patient is intubated and ventilated. (10) Diabetes mellitus type 2 in obese Is this a current diagnosis for this admission?: YesPlan: We'll continue with sliding scale insulin and Lantus. (11) ARIADNA (obstructive sleep apnea) Is this a current diagnosis for this admission?: Yes (12) Stented coronary artery Is this a current diagnosis for this admission?: YesPlan: Continue the Plavix. - Time Time Spent with patient: 25-34 minutes - Inpatient Certification Medical Necessity: Need Close Monitoring Due to Risk of Patient Decompensation - Plan Summary Plan Summary: We'll continue to try to wean off of the ventilator.
[2016-12-15] MEDS ORDERED: MIDAZOLAM HCL 100 ML IV ONE (14:51)
[2016-12-15] MEDS: DEXTROSE 5%-NORMAL SALINE 1,000 ML IV PRN (15:55)
[2016-12-15 16:59] LABS: FLUID TYPE BRONCHIAL WASH
[2016-12-15 17:00] LABS: FLUID APPEARANCE CLOUDY; FLUID RBC DILUENT USED NONE USED; FLUID RBC DILUTION FACTOR 1; FLUID RBC SIDE 1 4; FLUID RBC SIDE 2 6; TOTAL RBC SQUARES COUNTED FLD 225
[2016-12-15] MEDS: INSULIN REG, HUMAN 100 UNIT/ML 3 ML VIAL (PYX) SUBCUT PRN (18:10)
[2016-12-15] MEDS: MIDAZOLAM HCL 100 ML IV PRN (19:51)
[2016-12-15] MEDS: ACETYLCYSTEINE 20% SOLN 800 MG/4 ML VIAL.NEB NEB SCH (20:00)
[2016-12-15] MEDS: INSULIN GLARGINE,HUM.REC.ANLOG 300 UNIT/3 ML INSULN.PEN SUBCUT SCH (22:21)
[2016-12-16] MEDS: IPRATROPIUM/ALBUTEROL 0.5-2.5 MG/3 ML AMPUL NEB SCH ×4 (01:14→19:58)
[2016-12-16] MEDS: PROPOFOL 100 ML IV PRN ×9 (01:14→19:47)
[2016-12-16] MEDS: DEXTROSE 5%-NORMAL SALINE 1,000 ML IV PRN (01:15)
[2016-12-16] MEDS: MIDAZOLAM HCL 100 ML IV PRN ×3 (03:35→17:56)
[2016-12-16 04:24] LABS: ARTERIAL BLOOD BASE EXCESS 6.7 mmol/L; ARTERIAL BLOOD O2 SATURATION 92.9 % (94-98)
[2016-12-16 05:13] LABS: ABSOLUTE EOSINOPHILS # (AUTO) 0.2 10^3/uL (0.0-0.6); ABSOLUTE LYMPHOCYTES (AUTO) 1.8 10^3/uL (0.5-4.7); ABSOLUTE MONOCYTES (AUTO) 0.4 10^3/uL (0.1-1.4); ABSOLUTE NEUT (AUTO) 5.5 10^3/uL (1.7-8.2); BASOPHILS % (AUTO) 0.4 % (0-2); HEMATOCRIT 35.5 % (37.9-51.0); HEMOGLOBIN 11.8 g/dL (13.5-17.0); HGB HCT DIFFERENCE -0.1; LYMPHOCYTES % (AUTO) 22.4 % (13-45); MEAN CORPUSCULAR HEMOGLOBIN 30.3 pg (27.0-33.4); MEAN CORPUSCULAR HGB CONC 33.3 g/dL (32.0-36.0); MEAN CORPUSCULAR VOLUME 91 fl (80-97); MONOCYTES % (AUTO) 5.5 % (3-13); RED CELL DISTRIBUTION WIDTH 15.6 % (11.5-14.0); SEGMENTED NEUTROPHILS % (AUTO) 69.7 % (42-78); WHITE BLOOD COUNT 7.9 10^3/uL (4.0-10.5)
[2016-12-16 05:25] LABS: ANION GAP 8 (5-19); BLOOD UREA NITROGEN 15 mg/dL (7-20); CARBON DIOXIDE 31 mmol/L (22-30); CHLORIDE 102 mmol/L (98-107); CREATININE RESULT 0.89 mg/dL (0.52-1.25); GLUCOSE 142 mg/dL (75-110); SODIUM 141.3 mmol/L (137-145)
[2016-12-16 05:42] LABS: POTASSIUM 2.7 mmol/L (3.6-5.0)
[2016-12-16] MEDS: HEPARIN SOD (PORCINE) 5,000 UNIT/ML 1 ML SYRINGE SUBCUT SCH ×3 (06:18→21:07)
[2016-12-16] MEDS: HYDROCORTISONE SOD SUCCINATE INJ/PF 100 MG/2 ML SDV IV SCH ×3 (06:19→21:07)
[2016-12-16] MEDS: POTASSI CL 20 MEQ/50 ML RIDER 20 MEQ/50 ML RTUPB IV SCH ×3 (06:19→09:34)
[2016-12-16] MEDS: POTASSIUM CHLORIDE 20 MEQ/15 ML UDCUP PO SCH ×2 (06:48→21:07)
[2016-12-16] MEDS: ACETYLCYSTEINE 20% SOLN 800 MG/4 ML VIAL.NEB NEB SCH ×2 (08:20→19:58)
[2016-12-16] MEDS ORDERED: NORMAL SALINE 1000 ML 1,000 ML IV PRN (09:20)
[2016-12-16] MEDS ORDERED: MORPHINE SULFATE 10 MG/ML INJ IV PRN (09:21)
[2016-12-16] MEDS: CLOPIDOGREL BISULFATE 75 MG TABLET NG SCH (09:30)
[2016-12-16] MEDS: LEVOFLOXACIN 750 MG/D5W RTU 150 ML IV SCH (09:31)
[2016-12-16] MEDS: FUROSEMIDE INJ/PF 40 MG/4 ML SDV IV SCH (09:31)
[2016-12-16] MEDS: FAMOTIDINE INJ/PF 20 MG/2 ML SDV IV SCH ×2 (09:31→21:07)
[2016-12-16] MEDS: LEVOTHYROXINE SODIUM INJ/PF 0.1 MG SDV IV SCH (09:36)
[2016-12-16] MEDS: TIOTROPIUM BROMIDE DPI 5 CAP/KIT (18 MCG/CAP) IH SCH (09:57)
[2016-12-16] MEDS: METOPROLOL TARTRATE PF/INJ 5 MG/5 ML SDV IV SCH ×2 (09:57→21:09)
--- NOTE | 2016-12-16 10:26 | PDOC PROGRESS REPORT ---
Subjective Progress Note for:: 12/16/16 Subjective:: Patient is intubated and sedated. He had a bronchoscopy done yesterday. Physical Exam Vital Signs: Temp Pulse Resp BP Pulse Ox 97.2 F 58 L 25 H 133/77 H 94 12/16/16 09:28 12/16/16 09:28 12/16/16 09:28 12/16/16 09:28 12/16/16 09:28 Intake & Output 12/15/16 12/16/16 12/17/16 06:59 06:59 06:59 Intake Total 4200 4930 Output Total 3165 1900 105 Balance 1035 3030 -105 Weight 167.6 kg 168.7 kg General appearance: PRESENT: no acute distress Eye exam: PRESENT: conjunctiva pink. ABSENT: scleral icterus Mouth exam: PRESENT: moist, tongue midline Neck exam: ABSENT: JVD Respiratory exam: PRESENT: rhonchi - Coarse rhonchi bilaterally. Cardiovascular exam: PRESENT: RRR. ABSENT: diastolic murmur, rubs, systolic murmur GI/Abdominal exam: PRESENT: distended, normal bowel sounds, soft. ABSENT: guarding, mass, organolmegaly, rebound, tenderness Extremities exam: PRESENT: pedal edema - Trace pedal edema.. ABSENT: calf tenderness, clubbing Neurological exam: PRESENT: other - Patient is intubated and sedated. Psychiatric exam: PRESENT: other - Unable to assess. Skin exam: PRESENT: other - Darkly pigmented lesions on his bilateral lower extremities. Results Laboratory Results: 12/16/16 04:14 12/16/16 04:14 12/15/16 12/16/16 12/16/16 12:40 04:14 04:14 WBC 7.9 RBC 3.90 L Hgb 11.8 L Hct 35.5 L MCV 91 MCH 30.3 MCHC 33.3 RDW 15.6 H Plt Count 199 Seg Neutrophils % 69.7 Lymphocytes % 22.4 Monocytes % 5.5 Eosinophils % 2.0 Basophils % 0.4 Absolute Neutrophils 5.5 Absolute Lymphocytes 1.8 Absolute Monocytes 0.4 Absolute Eosinophils 0.2 Absolute Basophils 0.0 Carbonic Acid HCO3/H2CO3 Ratio ABG pH ABG pCO2 ABG pO2 ABG HCO3 ABG O2 Saturation ABG Base Excess FiO2 Sodium 141.3 Potassium 2.7 L* Chloride 102 Carbon Dioxide 31 H Anion Gap 8 BUN 15 Creatinine 0.89 Est GFR ( Amer) > 60 Est GFR (Non-Af Amer) > 60 Glucose 142 H Calcium 8.0 L Magnesium Fluid Type BRONCHIAL WASH Fluid Source LUNG Fluid Color STRAW Fluid Appearance CLOUDY Fluid Viscosity SLIGHTLY VISCOUS Fluid WBC 2485 Fluid RBC 5 12/16/16 12/16/16 04:15 06:15 WBC RBC Hgb Hct MCV MCH MCHC RDW Plt Count Seg Neutrophils % Lymphocytes % Monocytes % Eosinophils % Basophils % Absolute Neutrophils Absolute Lymphocytes Absolute Monocytes Absolute Eosinophils Absolute Basophils Carbonic Acid 1.25 HCO3/H2CO3 Ratio 24:1 ABG pH 7.49 H ABG pCO2 41.4 ABG pO2 60.4 L ABG HCO3 30.7 H ABG O2 Saturation 92.9 L ABG Base Excess 6.7 FiO2 60% Sodium Potassium Chloride Carbon Dioxide Anion Gap BUN Creatinine Est GFR ( Amer) Est GFR (Non-Af Amer) Glucose Calcium Magnesium 1.6 Fluid Type Fluid Source Fluid Color Fluid Appearance Fluid Viscosity Fluid WBC Fluid RBC 12/11/16 00:00 Tracheal Aspirate Gram Stain - Final 12/11/16 12/11/16 00:49 07:25 Troponin I 0.051 0.036 Impressions: KUB X-Ray 12/11/16 00:39 IMPRESSION: Nasogastric tube extends below the diaphragm. Chest/Abdomen CTA 12/11/16 11:44 IMPRESSION: 1. NORMAL CTA OF THE CHEST. NO PULMONARY EMBOLI. 2. CARDIOMEGALY. PROMINENT AIRSPACE DISEASE IN THE RIGHT AND LEFT LOWER LOBES SECONDARY TO PNEUMONIA AND/OR ATELECTASIS. Chest X-Ray 12/14/16 11:45 IMPRESSION: Dense consolidation left lower lobe atelectasis versus pneumonia Endotracheal tube, nasogastric tube in good positioning. Assessment & Plan - Diagnosis (1) Respiratory failure, acute and chronic Qualifiers: Respiratory failure complication: hypoxia and hypercapnia Qualified Code(s): J96.21 - Acute and chronic respiratory failure with hypoxia Is this a current diagnosis for this admission?: YesPlan: Patient's respiratory distress is most likely secondary to pneumonia as well as congestive heart failure. We'll continue with the Levaquin. Patient also getting Lasix for congestive heart failure. The patient had a bronchoscopy yesterday. Will defer ventilator management to pulmonary medicine. (2) Acute on chronic diastolic (congestive) heart failure Is this a current diagnosis for this admission?: YesPlan: Patient is on IV Lasix and we'll continue with that. The patient's creatinine has remained stable. (3) COPD exacerbation Is this a current diagnosis for this admission?: YesPlan: We'll continue with nebulizers and IV steroids. (4) Bilateral pneumonia Qualifiers: Pneumonia type: due to unspecified organism Lung location: lower lobe of lung Qualified Code(s): J18.9 - Pneumonia, unspecified organism Is this a current diagnosis for this admission?: YesPlan: chest x-ray shows congestive heart failure with pneumonia. We have the pneumonia covered with Levaquin. (5) Hypertensive urgency Is this a current diagnosis for this admission?: YesPlan: Improving. The patient's blood pressures have remained in the normal range. (6) Myxedema coma Is this a current diagnosis for this admission?: YesPlan: The patient has a very high TSH and low T4. He does have a history of taking Synthroid 200 g. will give 100 g daily for now. (7) Sleep apnea Qualifiers: Sleep apnea type: unspecified type Qualified Code(s): G47.30 - Sleep apnea, unspecified Is this a current diagnosis for this admission?: YesPlan: Patient is currently intubated and ventilated. (8) Hypothyroidism Is this a current diagnosis for this admission?: YesPlan: Continue with Synthroid as above. (9) Obesity hypoventilation syndrome Is this a current diagnosis for this admission?: YesPlan: Patient is intubated and ventilated. (10) Diabetes mellitus type 2 in obese Is this a current diagnosis for this admission?: YesPlan: We'll continue with sliding scale insulin and Lantus. (11) ARIADNA (obstructive sleep apnea) Is this a current diagnosis for this admission?: Yes (12) Stented coronary artery Is this a current diagnosis for this admission?: YesPlan: Continue the Plavix. (13) Hypokalemia Is this a current diagnosis for this admission?: YesPlan: We'll continue to replace and repeat a potassium today at 1400. - Time Time Spent with patient: 25-34 minutes - Inpatient Certification Medical Necessity: Need Close Monitoring Due to Risk of Patient Decompensation, Need for IV Antibiotics
[2016-12-16] MEDS: MORPHINE SULFATE 10 MG/ML INJ IV PRN (14:08)
[2016-12-16 15:08] LABS: ANION GAP 9 (5-19); BLOOD UREA NITROGEN 14 mg/dL (7-20); CARBON DIOXIDE 30 mmol/L (22-30); CHLORIDE 102 mmol/L (98-107); CREATININE RESULT 0.95 mg/dL (0.52-1.25); GLUCOSE 124 mg/dL (75-110); POTASSIUM 3.5 mmol/L (3.6-5.0); SODIUM 140.6 mmol/L (137-145)
[2016-12-16] MEDS: INSULIN GLARGINE,HUM.REC.ANLOG 300 UNIT/3 ML INSULN.PEN SUBCUT SCH (21:16)
[2016-12-17] MEDS: MIDAZOLAM HCL 100 ML IV PRN ×3 (00:20→23:21)
[2016-12-17] MEDS: PROPOFOL 100 ML IV PRN ×3 (00:20→10:34)
[2016-12-17] MEDS: IPRATROPIUM/ALBUTEROL 0.5-2.5 MG/3 ML AMPUL NEB SCH ×4 (01:54→20:13)
[2016-12-17] MEDS ORDERED: HYDROCORTISONE SOD SUCCINATE INJ/PF 100 MG/2 ML SDV ONE (03:10)
[2016-12-17] MEDS: HYDROCORTISONE SOD SUCCINATE INJ/PF 100 MG/2 ML SDV IV SCH ×3 (05:12→22:49)
[2016-12-17 05:13] LABS: ABSOLUTE EOSINOPHILS # (AUTO) 0.1 10^3/uL (0.0-0.6); ABSOLUTE LYMPHOCYTES (AUTO) 1.2 10^3/uL (0.5-4.7); ABSOLUTE MONOCYTES (AUTO) 0.4 10^3/uL (0.1-1.4); ABSOLUTE NEUT (AUTO) 7.3 10^3/uL (1.7-8.2); BASOPHILS % (AUTO) 0.4 % (0-2); EOSINOPHILS % (AUTO) 1.3 % (0-6); HEMATOCRIT 37.3 % (37.9-51.0); HEMOGLOBIN 12.3 g/dL (13.5-17.0); HGB HCT DIFFERENCE -0.4; LYMPHOCYTES % (AUTO) 13.4 % (13-45); MEAN CORPUSCULAR HEMOGLOBIN 29.9 pg (27.0-33.4); MEAN CORPUSCULAR VOLUME 91 fl (80-97); MONOCYTES % (AUTO) 4.2 % (3-13); RED BLOOD COUNT 4.11 10^6/uL (4.35-5.55); RED CELL DISTRIBUTION WIDTH 15.4 % (11.5-14.0); SEGMENTED NEUTROPHILS % (AUTO) 80.7 % (42-78)
[2016-12-17] MEDS: HEPARIN SOD (PORCINE) 5,000 UNIT/ML 1 ML SYRINGE SUBCUT SCH ×3 (05:13→22:50)
[2016-12-17 05:55] LABS: ARTERIAL BLOOD BASE EXCESS 5.5 mmol/L; ARTERIAL BLOOD O2 SATURATION 94.9 % (94-98)
[2016-12-17 06:29] LABS: ANION GAP 11 (5-19); BLOOD UREA NITROGEN 14 mg/dL (7-20); CALCIUM 8.6 mg/dL (8.4-10.2); CARBON DIOXIDE 26 mmol/L (22-30); CHLORIDE 107 mmol/L (98-107); CREATININE RESULT 1.02 mg/dL (0.52-1.25); GLUCOSE 148 mg/dL (75-110); POTASSIUM 3.7 mmol/L (3.6-5.0); SODIUM 144.1 mmol/L (137-145)
[2016-12-17 06:42] LABS: TRIGLYCERIDES 1285 mg/dL (<150)
[2016-12-17] MEDS: ACETYLCYSTEINE 20% SOLN 800 MG/4 ML VIAL.NEB NEB SCH ×2 (07:48→20:13)
[2016-12-17] MEDS: FUROSEMIDE INJ/PF 40 MG/4 ML SDV IV SCH (09:47)
[2016-12-17] MEDS: MORPHINE SULFATE 10 MG/ML INJ IV PRN (09:48)
[2016-12-17] MEDS: FAMOTIDINE INJ/PF 20 MG/2 ML SDV IV SCH ×2 (09:48→22:50)
[2016-12-17] MEDS: LEVOFLOXACIN 750 MG/D5W RTU 150 ML IV SCH (09:48)
[2016-12-17] MEDS: TIOTROPIUM BROMIDE DPI 5 CAP/KIT (18 MCG/CAP) IH SCH (09:49)
[2016-12-17] MEDS: METOPROLOL TARTRATE PF/INJ 5 MG/5 ML SDV IV SCH ×2 (09:49→22:52)
--- NOTE | 2016-12-17 10:45 | PDOC PROGRESS REPORT ---
Subjective Progress Note for:: 12/17/16 Subjective:: Patient is intubated awake and able to answer questions. Mr. De is a 50-year- old gentleman who presented with acute respiratory failure secondary to both pneumonia and congestive heart failure. Patient had a bronchoscopy on Saturday. The patient has been on antibiotics and chest x-ray shows improvement. He has been difficult to wean off the ventilator is still requiring high FiO2. The patient today complains of right lower quadrant abdominal pain. He is slightly tender when I palpate his abdomen and his abdomen is more distended today. Physical Exam Vital Signs: Temp Pulse Resp BP Pulse Ox 98.2 F 60 18 141/82 H 93 12/17/16 06:00 12/17/16 07:48 12/17/16 07:48 12/17/16 06:01 12/17/16 08:35 Intake & Output 12/16/16 12/17/16 12/18/16 06:59 06:59 06:59 Intake Total 4930 13602 Output Total 1900 2565 Balance 3030 7442 Weight 168.7 kg 169.8 kg General appearance: PRESENT: no acute distress Eye exam: PRESENT: conjunctiva pink. ABSENT: scleral icterus Mouth exam: PRESENT: moist, tongue midline Neck exam: ABSENT: JVD Respiratory exam: PRESENT: rhonchi - Few bilateral rhonchi Cardiovascular exam: PRESENT: RRR. ABSENT: diastolic murmur, rubs, systolic murmur GI/Abdominal exam: PRESENT: distended, firm, hypoactive bowel sounds. ABSENT: guarding, mass, organolmegaly, rebound, tenderness Extremities exam: ABSENT: joint swelling Neurological exam: PRESENT: alert, awake Psychiatric exam: PRESENT: appropriate affect Skin exam: PRESENT: other - Pigmented lesions on bilateral lower legs. Results Laboratory Results: 12/17/16 04:40 12/17/16 04:40 12/16/16 12/17/16 12/17/16 14:13 04:40 04:40 WBC 9.0 RBC 4.11 L Hgb 12.3 L Hct 37.3 L MCV 91 MCH 29.9 MCHC 33.0 RDW 15.4 H Plt Count 183 Seg Neutrophils % 80.7 H Lymphocytes % 13.4 Monocytes % 4.2 Eosinophils % 1.3 Basophils % 0.4 Absolute Neutrophils 7.3 Absolute Lymphocytes 1.2 Absolute Monocytes 0.4 Absolute Eosinophils 0.1 Absolute Basophils 0.0 Carbonic Acid HCO3/H2CO3 Ratio ABG pH ABG pCO2 ABG pO2 ABG HCO3 ABG O2 Saturation ABG Base Excess FiO2 Sodium 140.6 144.1 Potassium 3.5 L 3.7 Chloride 102 107 Carbon Dioxide 30 26 Anion Gap 9 11 BUN 14 14 Creatinine 0.95 1.02 Est GFR ( Amer) > 60 > 60 Est GFR (Non-Af Amer) > 60 > 60 Glucose 124 H 148 H Calcium 8.0 L 8.6 Triglycerides 1285 H Lipase 12/17/16 12/17/16 04:40 05:25 WBC RBC Hgb Hct MCV MCH MCHC RDW Plt Count Seg Neutrophils % Lymphocytes % Monocytes % Eosinophils % Basophils % Absolute Neutrophils Absolute Lymphocytes Absolute Monocytes Absolute Eosinophils Absolute Basophils Carbonic Acid 1.10 HCO3/H2CO3 Ratio 26:1 ABG pH 7.51 H ABG pCO2 36.5 ABG pO2 66.3 L ABG HCO3 28.6 H ABG O2 Saturation 94.9 ABG Base Excess 5.5 FiO2 60% Sodium Potassium Chloride Carbon Dioxide Anion Gap BUN Creatinine Est GFR ( Amer) Est GFR (Non-Af Amer) Glucose Calcium Triglycerides Lipase 60.3 12/11/16 00:00 Tracheal Aspirate Gram Stain - Final 12/11/16 12/11/16 00:49 07:25 Troponin I 0.051 0.036 Impressions: Chest/Abdomen CTA 12/11/16 11:44 IMPRESSION: 1. NORMAL CTA OF THE CHEST. NO PULMONARY EMBOLI. 2. CARDIOMEGALY. PROMINENT AIRSPACE DISEASE IN THE RIGHT AND LEFT LOWER LOBES SECONDARY TO PNEUMONIA AND/OR ATELECTASIS. KUB X-Ray 12/16/16 12:04 IMPRESSION: Grossly nonobstructive bowel gas pattern. Nasogastric tube tip and side port in the stomach. Suárez catheter in the bladder. Dense left lower lobe consolidation worrisome for pneumonia Chest X-Ray 12/17/16 06:00 IMPRESSION: IMPROVED LEFT PLEURAL EFFUSION WITH STABLE RETROCARDIAC AIRSPACE DISEASE. Assessment & Plan - Diagnosis (1) Respiratory failure, acute and chronic Qualifiers: Respiratory failure complication: hypoxia and hypercapnia Qualified Code(s): J96.21 - Acute and chronic respiratory failure with hypoxia Is this a current diagnosis for this admission?: YesPlan: Patient's respiratory distress is most likely secondary to pneumonia as well as congestive heart failure. We'll continue with the Levaquin. Patient also getting Lasix for congestive heart failure. The patient had a bronchoscopy Saturday. Will defer ventilator management to pulmonary medicine. The patient is still requiring high levels of FiO2 at 60%. If he does not wean off the ventilator will need to consider tracheostomy. (2) Acute on chronic diastolic (congestive) heart failure Is this a current diagnosis for this admission?: YesPlan: Patient is on IV Lasix and we'll continue with that. The patient's creatinine has remained stable. (3) COPD exacerbation Is this a current diagnosis for this admission?: Yes (4) Abdominal pain Is this a current diagnosis for this admission?: YesPlan: The patient has right lower quadrant pain. We'll get an abdominal CT today to evaluate. He does have bowel sounds and does not have a surgical abdomen at this time. (5) Bilateral pneumonia Qualifiers: Pneumonia type: due to unspecified organism Lung location: lower lobe of lung Qualified Code(s): J18.9 - Pneumonia, unspecified organism Is this a current diagnosis for this admission?: YesPlan: chest x-ray shows congestive heart failure with pneumonia. We have the pneumonia covered with Levaquin. (6) Myxedema coma Is this a current diagnosis for this admission?: YesPlan: The patient has a very high TSH and low T4. He does have a history of taking Synthroid 200 g. will give 100 g daily for now. (7) Hypertensive urgency Is this a current diagnosis for this admission?: YesPlan: Improving. The patient's blood pressures have remained in the normal range. (8) Sleep apnea Qualifiers: Sleep apnea type: unspecified type Qualified Code(s): G47.30 - Sleep apnea, unspecified Is this a current diagnosis for this admission?: YesPlan: Patient is currently intubated and ventilated. (9) Hypothyroidism Is this a current diagnosis for this admission?: YesPlan: Continue with Synthroid as above. (10) Obesity hypoventilation syndrome Is this a current diagnosis for this admission?: YesPlan: Patient is intubated and ventilated. (11) Diabetes mellitus type 2 in obese Is this a current diagnosis for this admission?: YesPlan: We'll continue with sliding scale insulin and Lantus. Sugars have been from 124 -148. (12) ARIADNA (obstructive sleep apnea) Is this a current diagnosis for this admission?: Yes (13) Stented coronary artery Is this a current diagnosis for this admission?: YesPlan: Continue the Plavix. (14) Hypokalemia Is this a current diagnosis for this admission?: YesPlan: Resolved. - Time Time Spent with patient: 25-34 minutes - Inpatient Certification Medical Necessity: Need Close Monitoring Due to Risk of Patient Decompensation, Need for IV Antibiotics - Plan Summary Plan Summary: Patient is to get an abdominal CT today and evaluation of pain. Will defer ventilator management to pulmonary medicine.
[2016-12-17] MEDS: POTASSIUM CHLORIDE 20 MEQ/15 ML UDCUP PO SCH (16:28)
[2016-12-17] MEDS: CLOPIDOGREL BISULFATE 75 MG TABLET NG SCH (16:28)
[2016-12-17] MEDS: LEVOTHYROXINE SODIUM INJ/PF 0.1 MG SDV IV SCH (17:18)
[2016-12-17] MEDS: INSULIN GLARGINE,HUM.REC.ANLOG 300 UNIT/3 ML INSULN.PEN SUBCUT SCH (23:04)
[2016-12-18] MEDS: IPRATROPIUM/ALBUTEROL 0.5-2.5 MG/3 ML AMPUL NEB SCH ×4 (02:11→20:49)
[2016-12-18] MEDS: MIDAZOLAM HCL 100 ML IV PRN (02:59)
[2016-12-18 04:09] LABS: ABSOLUTE EOSINOPHILS # (AUTO) 0.1 10^3/uL (0.0-0.6); ABSOLUTE MONOCYTES (AUTO) 0.3 10^3/uL (0.1-1.4); ABSOLUTE NEUT (AUTO) 8.1 10^3/uL (1.7-8.2); BASOPHILS % (AUTO) 0.3 % (0-2); EOSINOPHILS % (AUTO) 0.6 % (0-6); HEMATOCRIT 36.5 % (37.9-51.0); HGB HCT DIFFERENCE -0.5; LYMPHOCYTES % (AUTO) 10.2 % (13-45); MEAN CORPUSCULAR HEMOGLOBIN 29.7 pg (27.0-33.4); MEAN CORPUSCULAR HGB CONC 32.8 g/dL (32.0-36.0); MEAN CORPUSCULAR VOLUME 91 fl (80-97); MONOCYTES % (AUTO) 3.5 % (3-13); RED BLOOD COUNT 4.04 10^6/uL (4.35-5.55); RED CELL DISTRIBUTION WIDTH 15.4 % (11.5-14.0); SEGMENTED NEUTROPHILS % (AUTO) 85.4 % (42-78); WHITE BLOOD COUNT 9.5 10^3/uL (4.0-10.5)
[2016-12-18 04:36] LABS: ANION GAP 9 (5-19); BLOOD UREA NITROGEN 15 mg/dL (7-20); CALCIUM 8.3 mg/dL (8.4-10.2); CARBON DIOXIDE 29 mmol/L (22-30); CHLORIDE 103 mmol/L (98-107); CREATININE RESULT 0.96 mg/dL (0.52-1.25); GLUCOSE 164 mg/dL (75-110); POTASSIUM 3.6 mmol/L (3.6-5.0); SODIUM 141.3 mmol/L (137-145)
[2016-12-18 06:00] LABS: ARTERIAL BLOOD BASE EXCESS 6.2 mmol/L
[2016-12-18] MEDS ORDERED: HYDROCORTISONE SOD SUCCINATE INJ/PF 100 MG/2 ML SDV ONE (06:39)
[2016-12-18] MEDS: HYDROCORTISONE SOD SUCCINATE INJ/PF 100 MG/2 ML SDV IV SCH ×3 (06:53→22:09)
[2016-12-18] MEDS: HEPARIN SOD (PORCINE) 5,000 UNIT/ML 1 ML SYRINGE SUBCUT SCH ×3 (06:54→22:12)
[2016-12-18] MEDS: ACETYLCYSTEINE 20% SOLN 800 MG/4 ML VIAL.NEB NEB SCH ×2 (07:45→20:49)
[2016-12-18] MEDS: MORPHINE SULFATE 10 MG/ML INJ IV PRN ×3 (07:57→18:33)
[2016-12-18] MEDS ORDERED: FUROSEMIDE INJ/PF 40 MG/4 ML SDV IV SCH (09:00)
--- NOTE | 2016-12-18 09:11 | PDOC PROGRESS REPORT ---
Physical Exam Vital Signs: Temp Pulse Resp BP Pulse Ox 98.8 F 54 L 20 152/82 H 94 12/18/16 08:00 12/18/16 08:00 12/18/16 08:00 12/18/16 08:00 12/18/16 08:00 Intake & Output 12/17/16 12/18/16 12/19/16 06:59 06:59 06:59 Intake Total 57370 1176 Output Total 2565 1300 60 Balance 7442 -124 -60 Weight 169.8 kg 169.9 kg Results Laboratory Results: 12/18/16 03:45 12/18/16 03:45 12/17/16 12/18/16 12/18/16 04:40 03:45 03:45 WBC 9.5 RBC 4.04 L Hgb 12.0 L Hct 36.5 L MCV 91 MCH 29.7 MCHC 32.8 RDW 15.4 H Plt Count 179 Seg Neutrophils % 85.4 H Lymphocytes % 10.2 L Monocytes % 3.5 Eosinophils % 0.6 Basophils % 0.3 Absolute Neutrophils 8.1 Absolute Lymphocytes 1.0 Absolute Monocytes 0.3 Absolute Eosinophils 0.1 Absolute Basophils 0.0 Carbonic Acid HCO3/H2CO3 Ratio ABG pH ABG pCO2 ABG pO2 ABG HCO3 ABG O2 Saturation ABG Base Excess FiO2 Sodium 141.3 Potassium 3.6 Chloride 103 Carbon Dioxide 29 Anion Gap 9 BUN 15 Creatinine 0.96 Est GFR ( Amer) > 60 Est GFR (Non-Af Amer) > 60 Glucose 164 H Calcium 8.3 L Lipase 60.3 12/18/16 05:40 WBC RBC Hgb Hct MCV MCH MCHC RDW Plt Count Seg Neutrophils % Lymphocytes % Monocytes % Eosinophils % Basophils % Absolute Neutrophils Absolute Lymphocytes Absolute Monocytes Absolute Eosinophils Absolute Basophils Carbonic Acid 1.21 HCO3/H2CO3 Ratio 24:1 ABG pH 7.49 H ABG pCO2 40.2 ABG pO2 68.6 L ABG HCO3 30.0 H ABG O2 Saturation 95.0 ABG Base Excess 6.2 FiO2 60% Sodium Potassium Chloride Carbon Dioxide Anion Gap BUN Creatinine Est GFR ( Amer) Est GFR (Non-Af Amer) Glucose Calcium Lipase 12/15/16 12:40 Bronchial Washings Gram Stain - Final 12/15/16 12:40 Bronchial Washings AFB Smear Concentration - Final 12/15/16 12:40 Bronchial Washings Acid Fast Bacilli Smear - Final 12/11/16 00:00 Tracheal Aspirate Gram Stain - Final 12/11/16 00:00 Tracheal Aspirate Sputum Culture - Final Staphylococcus Aureus C.albicans/C.dubliniensis Normal Shannan 12/11/16 12/11/16 00:49 07:25 Troponin I 0.051 0.036 Impressions: Chest/Abdomen CTA 12/11/16 11:44 IMPRESSION: 1. NORMAL CTA OF THE CHEST. NO PULMONARY EMBOLI. 2. CARDIOMEGALY. PROMINENT AIRSPACE DISEASE IN THE RIGHT AND LEFT LOWER LOBES SECONDARY TO PNEUMONIA AND/OR ATELECTASIS. KUB X-Ray 12/16/16 12:04 IMPRESSION: Grossly nonobstructive bowel gas pattern. Nasogastric tube tip and side port in the stomach. Suárez catheter in the bladder. Dense left lower lobe consolidation worrisome for pneumonia Abdomen/Pelvis CT 12/17/16 00:00 IMPRESSION: Continued bibasilar infiltrate/ consolidation similar to prior CT chest. Post appendectomy. Colon distended with air. No small bowel dilatation. Anasarca. Suárez catheter. No hydronephrosis. Chest X-Ray 12/18/16 06:00 IMPRESSION: Bibasilar densities as noted above. Assessment & Plan - Diagnosis (1) Respiratory failure, acute and chronic Qualifiers: Respiratory failure complication: hypoxia and hypercapnia Qualified Code(s): J96.21 - Acute and chronic respiratory failure with hypoxia Is this a current diagnosis for this admission?: Yes (2) Acute on chronic diastolic (congestive) heart failure Is this a current diagnosis for this admission?: Yes (3) COPD exacerbation Is this a current diagnosis for this admission?: Yes (4) Bilateral pneumonia Qualifiers: Pneumonia type: due to unspecified organism Lung location: lower lobe of lung Qualified Code(s): J18.9 - Pneumonia, unspecified organism Is this a current diagnosis for this admission?: Yes (5) Abdominal pain Qualifiers: Abdominal location: unspecified location Qualified Code(s): R10.9 - Unspecified abdominal pain Is this a current diagnosis for this admission?: Yes (6) Hypertensive urgency Is this a current diagnosis for this admission?: Yes (7) Myxedema coma Is this a current diagnosis for this admission?: Yes (8) Hypothyroidism Qualifiers: Hypothyroidism type: acquired Qualified Code(s): E03.9 - Hypothyroidism, unspecified Is this a current diagnosis for this admission?: Yes (9) Obesity hypoventilation syndrome Is this a current diagnosis for this admission?: Yes (10) Diabetes mellitus type 2 in obese Is this a current diagnosis for this admission?: Yes (11) ARIADNA (obstructive sleep apnea) Is this a current diagnosis for this admission?: Yes (12) Stented coronary artery Is this a current diagnosis for this admission?: Yes - Time Time Spent with patient: 25-34 minutes - Plan Summary Plan Summary: Patient's abdomen is distended likely contributing for patient's respiratory discomfort. We will give Dulcolax suppository. Hopefully colonic distention improves. In the meantime continue weaning ventilatory per pulmonary protocol. I will add intravenous Lasix every 8 hours for at least 24 hours hopefully age and extubation as well. Monitor electrolytes. Continue other medications and supportive care.
--- NOTE | 2016-12-18 09:37 | PDOC PROGRESS REPORT ---
Subjective Progress Note for:: 12/18/16 Subjective:: Intubated. Off sedation. Awake and doing well. No reported tem. spikes, resp distress, diarrhea. Abd. is distended. No N/V. Physical Exam Vital Signs: Temp Pulse Resp BP Pulse Ox 98.8 F 54 L 20 152/82 H 94 12/18/16 08:00 12/18/16 08:00 12/18/16 08:00 12/18/16 08:00 12/18/16 08:00 Intake & Output 12/17/16 12/18/16 12/19/16 06:59 06:59 06:59 Intake Total 10336 1176 Output Total 2565 1300 60 Balance 7442 -124 -60 Weight 169.8 kg 169.9 kg General appearance: PRESENT: no acute distress, other - intubated Head exam: PRESENT: normocephalic Eye exam: PRESENT: EOMI Mouth exam: PRESENT: moist, neck supple Neck exam: ABSENT: JVD Respiratory exam: PRESENT: clear to auscultation laxmi - anteriorly, decrease on bases. ABSENT: rhonchi, wheezes Cardiovascular exam: PRESENT: RRR. ABSENT: gallop GI/Abdominal exam: PRESENT: distended, hyperactive bowel sounds, soft, other - slight tympany. ABSENT: tenderness Extremities exam: PRESENT: pedal edema Neurological exam: PRESENT: alert, awake Skin exam: PRESENT: dry, warm. ABSENT: cyanosis Results Laboratory Results: 12/18/16 03:45 12/18/16 03:45 12/18/16 12/18/16 12/18/16 03:45 03:45 05:40 WBC 9.5 RBC 4.04 L Hgb 12.0 L Hct 36.5 L MCV 91 MCH 29.7 MCHC 32.8 RDW 15.4 H Plt Count 179 Seg Neutrophils % 85.4 H Lymphocytes % 10.2 L Monocytes % 3.5 Eosinophils % 0.6 Basophils % 0.3 Absolute Neutrophils 8.1 Absolute Lymphocytes 1.0 Absolute Monocytes 0.3 Absolute Eosinophils 0.1 Absolute Basophils 0.0 Carbonic Acid 1.21 HCO3/H2CO3 Ratio 24:1 ABG pH 7.49 H ABG pCO2 40.2 ABG pO2 68.6 L ABG HCO3 30.0 H ABG O2 Saturation 95.0 ABG Base Excess 6.2 FiO2 60% Sodium 141.3 Potassium 3.6 Chloride 103 Carbon Dioxide 29 Anion Gap 9 BUN 15 Creatinine 0.96 Est GFR ( Amer) > 60 Est GFR (Non-Af Amer) > 60 Glucose 164 H Calcium 8.3 L 12/15/16 12:40 Bronchial Washings Gram Stain - Final 12/15/16 12:40 Bronchial Washings AFB Smear Concentration - Final 12/15/16 12:40 Bronchial Washings Acid Fast Bacilli Smear - Final 12/11/16 00:00 Tracheal Aspirate Gram Stain - Final 12/11/16 00:00 Tracheal Aspirate Sputum Culture - Final Staphylococcus Aureus C.albicans/C.dubliniensis Normal Shannan 12/11/16 12/11/16 00:49 07:25 Troponin I 0.051 0.036 Impressions: Chest/Abdomen CTA 12/11/16 11:44 IMPRESSION: 1. NORMAL CTA OF THE CHEST. NO PULMONARY EMBOLI. 2. CARDIOMEGALY. PROMINENT AIRSPACE DISEASE IN THE RIGHT AND LEFT LOWER LOBES SECONDARY TO PNEUMONIA AND/OR ATELECTASIS. KUB X-Ray 12/16/16 12:04 IMPRESSION: Grossly nonobstructive bowel gas pattern. Nasogastric tube tip and side port in the stomach. Suárez catheter in the bladder. Dense left lower lobe consolidation worrisome for pneumonia Abdomen/Pelvis CT 12/17/16 00:00 IMPRESSION: Continued bibasilar infiltrate/ consolidation similar to prior CT chest. Post appendectomy. Colon distended with air. No small bowel dilatation. Anasarca. Suárez catheter. No hydronephrosis. Chest X-Ray 12/18/16 06:00 IMPRESSION: Bibasilar densities as noted above. Assessment & Plan - Diagnosis (1) Respiratory failure, acute and chronic Qualifiers: Respiratory failure complication: hypoxia and hypercapnia Qualified Code(s): J96.21 - Acute and chronic respiratory failure with hypoxia Is this a current diagnosis for this admission?: Yes (2) Acute on chronic diastolic (congestive) heart failure Is this a current diagnosis for this admission?: Yes (3) COPD exacerbation Is this a current diagnosis for this admission?: Yes (4) Bilateral pneumonia Qualifiers: Pneumonia type: due to unspecified organism Lung location: lower lobe of lung Qualified Code(s): J18.9 - Pneumonia, unspecified organism Is this a current diagnosis for this admission?: Yes (5) Abdominal pain Qualifiers: Abdominal location: unspecified location Qualified Code(s): R10.9 - Unspecified abdominal pain Is this a current diagnosis for this admission?: Yes (6) Hypertensive urgency Is this a current diagnosis for this admission?: Yes (7) Myxedema coma Is this a current diagnosis for this admission?: Yes (8) Hypothyroidism Qualifiers: Hypothyroidism type: acquired Qualified Code(s): E03.9 - Hypothyroidism, unspecified Is this a current diagnosis for this admission?: Yes (9) Obesity hypoventilation syndrome Is this a current diagnosis for this admission?: Yes (10) Diabetes mellitus type 2 in obese Is this a current diagnosis for this admission?: Yes (11) ARIADNA (obstructive sleep apnea) Is this a current diagnosis for this admission?: Yes (12) Stented coronary artery Is this a current diagnosis for this admission?: Yes - Time Time Spent with patient: 25-34 minutes - Plan Summary Plan Summary: see other progress note 12/18/16
[2016-12-18] MEDS ORDERED: BISACODYL 10 MG SUPP.RECT PR ONE (09:45)
[2016-12-18] MEDS: CLOPIDOGREL BISULFATE 75 MG TABLET NG SCH (10:43)
[2016-12-18] MEDS: FAMOTIDINE INJ/PF 20 MG/2 ML SDV IV SCH ×2 (10:43→22:10)
[2016-12-18] MEDS: LEVOFLOXACIN 750 MG/D5W RTU 150 ML IV SCH (10:43)
[2016-12-18] MEDS: TIOTROPIUM BROMIDE DPI 5 CAP/KIT (18 MCG/CAP) IH SCH (10:44)
[2016-12-18] MEDS: METOPROLOL TARTRATE PF/INJ 5 MG/5 ML SDV IV SCH ×2 (10:44→22:09)
[2016-12-18] MEDS: LEVOTHYROXINE SODIUM INJ/PF 0.1 MG SDV IV SCH (10:57)
[2016-12-18] MEDS: FUROSEMIDE INJ/PF 40 MG/4 ML SDV IV SCH ×2 (21:50→22:09)
[2016-12-18] MEDS: INSULIN GLARGINE,HUM.REC.ANLOG 300 UNIT/3 ML INSULN.PEN SUBCUT SCH (22:10)
[2016-12-19] MEDS: IPRATROPIUM/ALBUTEROL 0.5-2.5 MG/3 ML AMPUL NEB SCH ×4 (02:17→19:57)
[2016-12-19] MEDS: FUROSEMIDE INJ/PF 40 MG/4 ML SDV IV SCH ×2 (05:56→21:36)
[2016-12-19] MEDS: HYDROCORTISONE SOD SUCCINATE INJ/PF 100 MG/2 ML SDV IV SCH (05:56)
[2016-12-19] MEDS: HEPARIN SOD (PORCINE) 5,000 UNIT/ML 1 ML SYRINGE SUBCUT SCH ×3 (05:57→21:35)
[2016-12-19 06:30] LABS: ANION GAP 8 (5-19); BLOOD UREA NITROGEN 18 mg/dL (7-20); CALCIUM 9.1 mg/dL (8.4-10.2); CARBON DIOXIDE 34 mmol/L (22-30); CHLORIDE 101 mmol/L (98-107); CREATININE RESULT 1.07 mg/dL (0.52-1.25); GLUCOSE 141 mg/dL (75-110); MAGNESIUM 1.8 mg/dL (1.6-2.3); PHOSPHORUS 4.1 mg/dL (2.5-4.5); POTASSIUM 3.4 mmol/L (3.6-5.0); SODIUM 143.3 mmol/L (137-145)
[2016-12-19 06:48] LABS: ARTERIAL BLOOD O2 SATURATION 93.6 % (94-98)
[2016-12-19 07:37] LABS: ABSOLUTE EOSINOPHILS # (AUTO) 0.1 10^3/uL (0.0-0.6); ABSOLUTE LYMPHOCYTES (AUTO) 1.2 10^3/uL (0.5-4.7); ABSOLUTE MONOCYTES (AUTO) 0.6 10^3/uL (0.1-1.4); ABSOLUTE NEUT (AUTO) 8.8 10^3/uL (1.7-8.2); BASOPHILS % (AUTO) 0.4 % (0-2); EOSINOPHILS % (AUTO) 0.7 % (0-6); HEMATOCRIT 43.6 % (37.9-51.0); HGB HCT DIFFERENCE -0.4; LYMPHOCYTES % (AUTO) 10.9 % (13-45); MEAN CORPUSCULAR HEMOGLOBIN 29.6 pg (27.0-33.4); MEAN CORPUSCULAR VOLUME 90 fl (80-97); MONOCYTES % (AUTO) 5.9 % (3-13); RED BLOOD COUNT 4.85 10^6/uL (4.35-5.55); SEGMENTED NEUTROPHILS % (AUTO) 82.1 % (42-78); WHITE BLOOD COUNT 10.8 10^3/uL (4.0-10.5)
[2016-12-19 07:44] LABS: HEMOGLOBIN 14.4 g/dL (13.5-17.0)
[2016-12-19] MEDS: ACETYLCYSTEINE 20% SOLN 800 MG/4 ML VIAL.NEB NEB SCH (07:46)
--- NOTE | 2016-12-19 08:45 | PDOC PROGRESS REPORT ---
Subjective Progress Note for:: 12/19/16 Subjective:: Off sedation and ventilator. Awake and doing well. No reported tem. spikes, resp distress, diarrhea. No N/V abdominal pain. Patient is hard of hearing but states he is doing better. Physical Exam Vital Signs: Temp Pulse Resp BP Pulse Ox 98.4 F 73 22 H 172/106 H 93 12/19/16 08:00 12/19/16 08:00 12/19/16 08:00 12/19/16 08:00 12/19/16 08:00 Intake & Output 12/18/16 12/19/16 12/20/16 06:59 06:59 06:59 Intake Total 1176 2047 Output Total 1300 3310 140 Balance -124 -1263 -140 Weight 169.9 kg 166.3 kg General appearance: PRESENT: no acute distress, cooperative, morbidly obese Head exam: PRESENT: normocephalic Eye exam: PRESENT: EOMI Mouth exam: PRESENT: moist, neck supple Neck exam: ABSENT: JVD Respiratory exam: PRESENT: clear to auscultation laxmi. ABSENT: rhonchi, wheezes Cardiovascular exam: PRESENT: RRR. ABSENT: gallop GI/Abdominal exam: PRESENT: normal bowel sounds, soft. ABSENT: tenderness Extremities exam: PRESENT: other - Trace lower extremity edema Neurological exam: PRESENT: alert, awake, oriented to situation Skin exam: PRESENT: dry, warm. ABSENT: cyanosis Results Laboratory Results: 12/19/16 07:22 12/19/16 06:06 12/19/16 12/19/16 12/19/16 06:06 06:06 06:20 WBC Cancelled RBC Cancelled Hgb Cancelled Hct Cancelled MCV Cancelled MCH Cancelled MCHC Cancelled RDW Cancelled Plt Count Cancelled Seg Neutrophils % Cancelled Lymphocytes % Cancelled Monocytes % Cancelled Eosinophils % Cancelled Basophils % Cancelled Absolute Neutrophils Cancelled Absolute Lymphocytes Cancelled Absolute Monocytes Cancelled Absolute Eosinophils Cancelled Absolute Basophils Cancelled Carbonic Acid 1.40 H HCO3/H2CO3 Ratio 21:1 ABG pH 7.43 ABG pCO2 46.4 H ABG pO2 66.5 L ABG HCO3 30.2 H ABG O2 Saturation 93.6 L ABG Base Excess 5.0 FiO2 5 L Sodium 143.3 Potassium 3.4 L Chloride 101 Carbon Dioxide 34 H Anion Gap 8 BUN 18 Creatinine 1.07 Est GFR ( Amer) > 60 Est GFR (Non-Af Amer) > 60 Glucose 141 H Calcium 9.1 Phosphorus 4.1 Magnesium 1.8 12/19/16 07:22 WBC 10.8 H RBC 4.85 Hgb 14.4 D Hct 43.6 MCV 90 MCH 29.6 MCHC 33.0 RDW 15.0 H Plt Count 222 Seg Neutrophils % 82.1 H Lymphocytes % 10.9 L Monocytes % 5.9 Eosinophils % 0.7 Basophils % 0.4 Absolute Neutrophils 8.8 H Absolute Lymphocytes 1.2 Absolute Monocytes 0.6 Absolute Eosinophils 0.1 Absolute Basophils 0.0 Carbonic Acid HCO3/H2CO3 Ratio ABG pH ABG pCO2 ABG pO2 ABG HCO3 ABG O2 Saturation ABG Base Excess FiO2 Sodium Potassium Chloride Carbon Dioxide Anion Gap BUN Creatinine Est GFR ( Amer) Est GFR (Non-Af Amer) Glucose Calcium Phosphorus Magnesium 12/15/16 12:40 Bronchial Washings Fungal Smear - Final 12/15/16 12:40 Bronchial Washings Fungal Smear - Final 12/15/16 12:40 Bronchial Washings Fungal Smear - Final 12/15/16 12:40 Bronchial Washings Gram Stain - Final 12/15/16 12:40 Bronchial Washings Bronchial Washings Culture - Final NO GROWTH 3 DAYS 12/15/16 12:40 Bronchial Washings AFB Smear Concentration - Final 12/15/16 12:40 Bronchial Washings Acid Fast Bacilli Smear - Final 12/11/16 12/11/16 00:49 07:25 Troponin I 0.051 0.036 Impressions: Chest/Abdomen CTA 12/11/16 11:44 IMPRESSION: 1. NORMAL CTA OF THE CHEST. NO PULMONARY EMBOLI. 2. CARDIOMEGALY. PROMINENT AIRSPACE DISEASE IN THE RIGHT AND LEFT LOWER LOBES SECONDARY TO PNEUMONIA AND/OR ATELECTASIS. KUB X-Ray 12/16/16 12:04 IMPRESSION: Grossly nonobstructive bowel gas pattern. Nasogastric tube tip and side port in the stomach. Suárez catheter in the bladder. Dense left lower lobe consolidation worrisome for pneumonia Abdomen/Pelvis CT 12/17/16 00:00 IMPRESSION: Continued bibasilar infiltrate/ consolidation similar to prior CT chest. Post appendectomy. Colon distended with air. No small bowel dilatation. Anasarca. Suárez catheter. No hydronephrosis. Chest X-Ray 12/19/16 06:00 IMPRESSION: REMOVAL OF THE ENDOTRACHEAL TUBE AND NASOGASTRIC TUBE. OTHERWISE NO CHANGE. Assessment & Plan - Diagnosis (1) Respiratory failure, acute and chronic Qualifiers: Respiratory failure complication: hypoxia and hypercapnia Qualified Code(s): J96.21 - Acute and chronic respiratory failure with hypoxia Is this a current diagnosis for this admission?: Yes (2) Acute on chronic diastolic (congestive) heart failure Is this a current diagnosis for this admission?: Yes (3) COPD exacerbation Is this a current diagnosis for this admission?: Yes (4) Bilateral pneumonia Qualifiers: Pneumonia type: due to unspecified organism Lung location: lower lobe of lung Qualified Code(s): J18.9 - Pneumonia, unspecified organism Is this a current diagnosis for this admission?: Yes (5) Abdominal pain Qualifiers: Abdominal location: unspecified location Qualified Code(s): R10.9 - Unspecified abdominal pain Is this a current diagnosis for this admission?: Yes (6) Hypertensive urgency Is this a current diagnosis for this admission?: Yes (7) Myxedema coma Is this a current diagnosis for this admission?: Yes (8) Hypothyroidism Qualifiers: Hypothyroidism type: acquired Qualified Code(s): E03.9 - Hypothyroidism, unspecified Is this a current diagnosis for this admission?: Yes (9) Obesity hypoventilation syndrome Is this a current diagnosis for this admission?: Yes (10) Diabetes mellitus type 2 in obese Is this a current diagnosis for this admission?: Yes (11) ARIADNA (obstructive sleep apnea) Is this a current diagnosis for this admission?: Yes (12) Stented coronary artery Is this a current diagnosis for this admission?: Yes - Time Time Spent with patient: 25-34 minutes - Plan Summary Plan Summary: We will transfer the patient to [facility]. We will begin physical therapy. We will switch to oral steroids. Continue other medications and supportive care. Replace potassium and monitor electrolytes. Resume oral Synthroid.
[2016-12-19] MEDS ORDERED: POTASSIUM CHLORIDE 10 MEQ TABLET.SA PO ONE (10:15)
[2016-12-19] MEDS: FAMOTIDINE INJ/PF 20 MG/2 ML SDV IV SCH ×2 (10:23→21:44)
[2016-12-19] MEDS: METOPROLOL TARTRATE PF/INJ 5 MG/5 ML SDV IV SCH ×2 (10:23→21:41)
[2016-12-19] MEDS: LEVOFLOXACIN 750 MG TABLET NG SCH (10:25)
[2016-12-19] MEDS: LEVOTHYROXINE SODIUM 0.1 MG TABLET PO SCH (10:25)
[2016-12-19] MEDS: CLOPIDOGREL BISULFATE 75 MG TABLET NG SCH (10:25)
[2016-12-19] MEDS: PREDNISONE 20 MG TABLET PO SCH (10:26)
[2016-12-19] MEDS: TIOTROPIUM BROMIDE DPI 5 CAP/KIT (18 MCG/CAP) IH SCH (10:26)
[2016-12-19] MEDS: INSULIN GLARGINE,HUM.REC.ANLOG 300 UNIT/3 ML INSULN.PEN SUBCUT SCH (21:46)
[2016-12-20] MEDS: IPRATROPIUM/ALBUTEROL 0.5-2.5 MG/3 ML AMPUL NEB SCH ×4 (01:43→20:14)
[2016-12-20] MEDS: HEPARIN SOD (PORCINE) 5,000 UNIT/ML 1 ML SYRINGE SUBCUT SCH ×3 (05:25→21:56)
[2016-12-20 05:44] LABS: ANION GAP 8 (5-19); BLOOD UREA NITROGEN 19 mg/dL (7-20); CALCIUM 8.9 mg/dL (8.4-10.2); CARBON DIOXIDE 34 mmol/L (22-30); CHLORIDE 101 mmol/L (98-107); CREATININE RESULT 1.08 mg/dL (0.52-1.25); GLUCOSE 105 mg/dL (75-110); POTASSIUM 3.1 mmol/L (3.6-5.0)
[2016-12-20] MEDS: PREDNISONE 20 MG TABLET PO SCH (09:20)
[2016-12-20] MEDS: TIOTROPIUM BROMIDE DPI 5 CAP/KIT (18 MCG/CAP) IH SCH (09:21)
[2016-12-20] MEDS: METOPROLOL TARTRATE PF/INJ 5 MG/5 ML SDV IV SCH ×2 (09:22→22:12)
[2016-12-20] MEDS: FAMOTIDINE INJ/PF 20 MG/2 ML SDV IV SCH ×2 (09:22→22:10)
[2016-12-20] MEDS: FUROSEMIDE INJ/PF 40 MG/4 ML SDV IV SCH (09:22)
[2016-12-20] MEDS: CLOPIDOGREL BISULFATE 75 MG TABLET NG SCH (09:23)
[2016-12-20] MEDS: LEVOFLOXACIN 750 MG TABLET NG SCH (09:23)
[2016-12-20] MEDS: LEVOTHYROXINE SODIUM 0.1 MG TABLET PO SCH (09:23)
--- NOTE | 2016-12-20 15:28 | PDOC PROGRESS REPORT ---
Subjective Progress Note for:: 12/20/16 Subjective:: Patient is doing well. Able to ambulate around . No reported tem. spikes, resp distress, diarrhea. No N/V abdominal pain. Hearing is improved. Has lightheaded on ambulation probably from being deconditioned as reported. Has not received any sedatives or narcotics recently. He is on home oxygen. He is close to his baseline. Physical Exam Vital Signs: Temp Pulse Resp BP Pulse Ox 97.5 F 72 18 182/92 H 90 L 12/20/16 12:11 12/20/16 14:00 12/20/16 14:00 12/20/16 12:11 12/20/16 14:00 Intake & Output 12/19/16 12/20/16 12/21/16 06:59 06:59 06:59 Intake Total 2047 1818 358 Output Total 331 2215 Balance -1263 -397 358 Weight 166.3 kg 161.4 kg General appearance: PRESENT: no acute distress, cooperative, morbidly obese Head exam: PRESENT: normocephalic Eye exam: PRESENT: EOMI Mouth exam: PRESENT: moist, neck supple Neck exam: ABSENT: JVD Respiratory exam: PRESENT: clear to auscultation laxmi Cardiovascular exam: PRESENT: RRR. ABSENT: gallop GI/Abdominal exam: PRESENT: hypoactive bowel sounds, soft. ABSENT: tenderness Extremities exam: PRESENT: +1 edema Neurological exam: PRESENT: alert, awake, oriented to situation Skin exam: PRESENT: dry, warm. ABSENT: cyanosis Results Laboratory Results: 12/19/16 07:22 12/20/16 05:07 12/20/16 05:07 Sodium 143.0 Potassium 3.1 L Chloride 101 Carbon Dioxide 34 H Anion Gap 8 BUN 19 Creatinine 1.08 Est GFR ( Amer) > 60 Est GFR (Non-Af Amer) > 60 Glucose 105 Calcium 8.9 12/11/16 12/11/16 00:49 07:25 Troponin I 0.051 0.036 Impressions: Chest/Abdomen CTA 12/11/16 11:44 IMPRESSION: 1. NORMAL CTA OF THE CHEST. NO PULMONARY EMBOLI. 2. CARDIOMEGALY. PROMINENT AIRSPACE DISEASE IN THE RIGHT AND LEFT LOWER LOBES SECONDARY TO PNEUMONIA AND/OR ATELECTASIS. KUB X-Ray 12/16/16 12:04 IMPRESSION: Grossly nonobstructive bowel gas pattern. Nasogastric tube tip and side port in the stomach. Suárez catheter in the bladder. Dense left lower lobe consolidation worrisome for pneumonia Abdomen/Pelvis CT 12/17/16 00:00 IMPRESSION: Continued bibasilar infiltrate/ consolidation similar to prior CT chest. Post appendectomy. Colon distended with air. No small bowel dilatation. Anasarca. Suárez catheter. No hydronephrosis. Chest X-Ray 12/19/16 06:00 IMPRESSION: REMOVAL OF THE ENDOTRACHEAL TUBE AND NASOGASTRIC TUBE. OTHERWISE NO CHANGE. Assessment & Plan - Diagnosis (1) Respiratory failure, acute and chronic Qualifiers: Respiratory failure complication: hypoxia and hypercapnia Qualified Code(s): J96.21 - Acute and chronic respiratory failure with hypoxia Is this a current diagnosis for this admission?: Yes (2) Acute on chronic diastolic (congestive) heart failure Is this a current diagnosis for this admission?: Yes (3) COPD exacerbation Is this a current diagnosis for this admission?: Yes (4) Bilateral pneumonia Qualifiers: Pneumonia type: due to unspecified organism Lung location: lower lobe of lung Qualified Code(s): J18.9 - Pneumonia, unspecified organism Is this a current diagnosis for this admission?: Yes (5) Abdominal pain Qualifiers: Abdominal location: unspecified location Qualified Code(s): R10.9 - Unspecified abdominal pain Is this a current diagnosis for this admission?: Yes (6) Hypertensive urgency Is this a current diagnosis for this admission?: Yes (7) Myxedema coma Is this a current diagnosis for this admission?: Yes (8) Hypothyroidism Qualifiers: Hypothyroidism type: acquired Qualified Code(s): E03.9 - Hypothyroidism, unspecified Is this a current diagnosis for this admission?: Yes (9) Obesity hypoventilation syndrome Is this a current diagnosis for this admission?: Yes (10) Diabetes mellitus type 2 in obese Is this a current diagnosis for this admission?: Yes (11) ARIADNA (obstructive sleep apnea) Is this a current diagnosis for this admission?: Yes (12) Stented coronary artery Is this a current diagnosis for this admission?: Yes - Time Time Spent with patient: 25-34 minutes - Plan Summary Plan Summary: Advance diet. Continue physical therapy. Discontinue intravenous Lasix and switch to oral. Discontinue morphine as needed. Replace potassium and recheck electrolytes in the morning. Continue supportive care. The patient continues to improve, may be able to be discharged home by the weekend.
[2016-12-20] MEDS: POTASSI CL 20 MEQ/50 ML RIDER 50 ML IV SCH ×3 (15:38→20:26)
[2016-12-20] MEDS: INSULIN REG, HUMAN 100 UNIT/ML 3 ML VIAL (PYX) SUBCUT PRN (16:34)
[2016-12-20] MEDS: FUROSEMIDE 40 MG TABLET PO SCH (17:19)
[2016-12-20] MEDS: INSULIN GLARGINE,HUM.REC.ANLOG 300 UNIT/3 ML INSULN.PEN SUBCUT SCH (21:56)
[2016-12-21] MEDS: IPRATROPIUM/ALBUTEROL 0.5-2.5 MG/3 ML AMPUL NEB SCH ×3 (02:16→13:54)
[2016-12-21] MEDS: HEPARIN SOD (PORCINE) 5,000 UNIT/ML 1 ML SYRINGE SUBCUT SCH ×2 (05:53→14:31)
[2016-12-21 06:07] LABS: ANION GAP 7 (5-19); BLOOD UREA NITROGEN 21 mg/dL (7-20); CALCIUM 9.5 mg/dL (8.4-10.2); CARBON DIOXIDE 36 mmol/L (22-30); CHLORIDE 100 mmol/L (98-107); CREATININE RESULT 1.14 mg/dL (0.52-1.25); GLUCOSE 132 mg/dL (75-110); POTASSIUM 4.1 mmol/L (3.6-5.0); SODIUM 143.4 mmol/L (137-145)
[2016-12-21] MEDS: PREDNISONE 20 MG TABLET PO SCH (09:39)
[2016-12-21] MEDS: LEVOFLOXACIN 750 MG TABLET NG SCH (09:39)
[2016-12-21] MEDS: FUROSEMIDE 40 MG TABLET PO SCH (09:39)
[2016-12-21] MEDS: CLOPIDOGREL BISULFATE 75 MG TABLET NG SCH (09:39)
[2016-12-21] MEDS: LEVOTHYROXINE SODIUM 0.1 MG TABLET PO SCH (09:40)
[2016-12-21] MEDS: METOPROLOL TARTRATE PF/INJ 5 MG/5 ML SDV IV SCH (09:40)
[2016-12-21] MEDS: FAMOTIDINE INJ/PF 20 MG/2 ML SDV IV SCH (09:41)
[2016-12-21] MEDS: TIOTROPIUM BROMIDE DPI 5 CAP/KIT (18 MCG/CAP) IH SCH (09:52)
--- NOTE | 2016-12-21 12:14 | PDOC DISCHARGE SUMMARY ---
General - Admit/Disc Date/PCP Admission Date/Primary Care Provider: 12/10/16 23:40 ALONSO SHAHID MD Discharge Date: 12/21/16 - Discharge Diagnosis (1) Respiratory failure, acute and chronic Is this a current diagnosis for this admission?: Yes (2) Acute on chronic diastolic (congestive) heart failure Is this a current diagnosis for this admission?: Yes (3) COPD exacerbation Is this a current diagnosis for this admission?: Yes (4) Bilateral pneumonia Is this a current diagnosis for this admission?: Yes (5) Abdominal pain Is this a current diagnosis for this admission?: Yes (6) Hypertensive urgency Is this a current diagnosis for this admission?: Yes (7) Myxedema coma Is this a current diagnosis for this admission?: Yes (8) Hypothyroidism Is this a current diagnosis for this admission?: Yes (9) Obesity hypoventilation syndrome Is this a current diagnosis for this admission?: Yes (10) Diabetes mellitus type 2 in obese Is this a current diagnosis for this admission?: Yes (11) ARIADNA (obstructive sleep apnea) Is this a current diagnosis for this admission?: Yes (12) Stented coronary artery Is this a current diagnosis for this admission?: Yes - Additional Information Resuscitation Status: Full Code Discharge Diet: Cardiac - low-fat low-salt, Diabetic - no concentrated sweets Discharge Activity: Activity As Tolerated, Balance Activity w/Rest, Slowly Increase Activity Home Medications: Atorvastatin Calcium 40 mg PO DAILY 06/02/14 Nitroglycerin 1 tab PO PRN PRN 06/02/14 Furosemide [Lasix 40 mg Tablet] 40 mg PO QAM #30 tablet 06/05/14 Candesartan Cilexetil 1 tab PO DAILY 10/09/16 Clopidogrel Bisulfate [Clopidogrel] 1 tab PO DAILY 10/09/16 Fluticasone Propionate 1 spray IH DAILY 10/09/16 Isosorbide Mononitrate [Isosorbide Mononitrate ER] 30 mg PO DAILY 10/09/16 Liraglutide [Victoza 2-Shemar] 0.1 ml SUBCUT DAILY 10/09/16 Metoprolol Tartrate 25 mg PO DAILY 10/09/16 Sertraline HCl 100 mg PO DAILY 10/09/16 Tiotropium [place] [Spiriva Handihaler 5 Cap/Kit (18 Mcg/Cap)] 1 cap IH DAILY Albuterol Sulfate [Ventolin 0.083% Neb 2.5 mg/3 mL Ampul] 2.5 mg NEB RTQ4HP PRN #60 vial.neb 12/21/16 Ipratropium/Albuterol Sulfate [Duoneb 3 ml Ampul] 3 ml NEB RTQ6 #120 vial.neb Levofloxacin [Levaquin 750 mg Tablet] 750 mg NG DAILY #4 tablet 12/21/16 Levothyroxine Sodium [Synthroid 0.1 mg Tablet] 0.1 mg PO DAILY #30 tablet Prednisone [Sterapred Ds] 1 pkg PO ASDIR PRN 12 Days 12/21/16 Additional Information: Recheck TSH and free T4 in 4 weeks with primary care physician History of Present Illness Patient complains of: Shortness of breath History of Present Illness: DESIRAE MALLORY is a 50 year old male, morbidly obese, with coronary artery disease , COPD, hypertension, diabetes mellitus, hypothyroidism, presents to the hospital because of difficulty breathing. The patient apparently had alteration in mental status, hypoxic and was placed on BiPAP. Patient eventually require intubation due to worsening respiratory status. Information therefore was unobtainable at that time. Patient with history of noncompliance to medication, as well as lifestyle, and reportedly had recent catheterization and stent placement at [facility]. For details please refer to history and physical examination performed by the admitting physician. Hospital Course Hospital Course: The patient was admitted to the intensive care unit. The patient was placed on ventilator. Patient was treated for COPD exacerbation with steroids and nebulizers. Patient was likewise treated for possible pneumonia noted on CT scan of the chest and broad-spectrum antibiotics. Cultures were therefore performed and revealed Staphylococcus aureus in the sputum. Patient was placed on vasopressors initially but with IV hydration patient's blood pressure improved and was off vasopressors. He apparently was a difficult weaning from the ventilator. Pulmonary was consulted, bronchoscopy was performed showing no malignancies. Follow-up cultures were negative so far. Serial x-rays were performed showing some vascular congestion. Urine output noted to be positive balance. At this point diuretics was instituted aggressively and maintain urine output in negative balance. Course was noted for hypothyroidism, with low TSH and low free T4, where the patient was presumed to have myxedema therefore intravenous Synthroid was started. Patient subsequently improved with time and later extubated successfully. She was transferred to [facility]. Suárez catheter was discontinued and physical therapy was instituted subsequently. Intravenous antibiotic shifted to oral. Intravenous steroids shifted to oral as well. Intravenous Synthroid shifted to oral as well. The patient did well with physical therapy. IV fluids was discontinued. The rest of the hospital stay is essentially unremarkable. Patient was eventually discharged home improved, counseling regarding medication compliance and the patient understood. Physical Exam Vital Signs: Temp Pulse Resp BP Pulse Ox 97.6 F 92 18 154/90 H 94 12/21/16 07:44 12/21/16 08:26 12/21/16 08:26 12/21/16 07:44 12/21/16 08:26 Intake & Output 12/20/16 12/21/16 12/22/16 06:59 06:59 06:59 Intake Total 1818 1889 Output Total 2215 950 Balance -397 939 Weight 161.4 kg 161.8 kg General appearance: PRESENT: no acute distress, cooperative, morbidly obese Head exam: PRESENT: normocephalic Eye exam: PRESENT: EOMI, other - Nasal cannula oxygen Mouth exam: PRESENT: moist, neck supple Neck exam: ABSENT: JVD Respiratory exam: PRESENT: clear to auscultation laxmi, decreased breath sounds - Bilateral. ABSENT: rhonchi, wheezes Cardiovascular exam: PRESENT: RRR. ABSENT: gallop GI/Abdominal exam: PRESENT: distended - Obese, normal bowel sounds, soft. ABSENT: tenderness Extremities exam: PRESENT: other - Trace lower extremity edema Neurological exam: PRESENT: alert, awake, oriented to person, oriented to place , oriented to time, oriented to situation Skin exam: PRESENT: dry, warm. ABSENT: cyanosis Results Laboratory Results: 12/19/16 07:22 12/21/16 05:13 12/21/16 05:13 Sodium 143.4 Potassium 4.1 Chloride 100 Carbon Dioxide 36 H Anion Gap 7 BUN 21 H Creatinine 1.14 Est GFR ( Amer) > 60 Est GFR (Non-Af Amer) > 60 Glucose 132 H Calcium 9.5 12/11/16 12/11/16 00:49 07:25 Troponin I 0.051 0.036 Impressions: Chest/Abdomen CTA 12/11/16 11:44 IMPRESSION: 1. NORMAL CTA OF THE CHEST. NO PULMONARY EMBOLI. 2. CARDIOMEGALY. PROMINENT AIRSPACE DISEASE IN THE RIGHT AND LEFT LOWER LOBES SECONDARY TO PNEUMONIA AND/OR ATELECTASIS. KUB X-Ray 12/16/16 12:04 IMPRESSION: Grossly nonobstructive bowel gas pattern. Nasogastric tube tip and side port in the stomach. Suárez catheter in the bladder. Dense left lower lobe consolidation worrisome for pneumonia Abdomen/Pelvis CT 12/17/16 00:00 IMPRESSION: Continued bibasilar infiltrate/ consolidation similar to prior CT chest. Post appendectomy. Colon distended with air. No small bowel dilatation. Anasarca. Suárez catheter. No hydronephrosis. Chest X-Ray 12/19/16 06:00 IMPRESSION: REMOVAL OF THE ENDOTRACHEAL TUBE AND NASOGASTRIC TUBE. OTHERWISE NO CHANGE. Qualifiers PATEINT BEING DISCHARGED WITH ANY OF THE FOLLOWING DIAGNOSIS?: Heart Failure HF Pt being discharged on ACEI for LVEF less than 40%?: No Reason(s) for not prescribing ACEI:: Not indicated - Diastolic heart failure HF Pt being discharged on ARBS for LVEF less than 40%?: No Reason(s) for not prescribing ARBS:: Not indicated - Diastolic heart failure HF Pt with Afib discharged with Warfarin?: No Reason(s) for not prescribing Warfarin:: Not indicated - No A. fib HF Pt discharged on evidence-based Beta Steven?: Yes Plan Discharge Plan: Follow-up with primary care physician in one week Time Spent: Less than 30 Minutes
[2016-12-21 12:54] VITALS: BP 124/74
--- NOTE | 2017-01-17 14:18 | Operative Report ---
Operative Report DATE OF SURGERY: 12/15/16 Operative Report: Patient intubated and sedated using T cells lipid bronchoscope his tracheal bronchial tree was explored [place] amounts of secretion in the distal trachea as well as the right mainstem bronchus right bronchus intermedius right middle and right lower lobes 0 and greater amount of secretions in the left mainstem bronchus and the left lower lobe left lower lobe was lavaged repeatedly with small amounts of mucus plugging in the lavage fluid. The patient tolerated procedure well postprocedure SaO2 was 99% PREOPERATIVE DIAGNOSIS: LLL atelectasis/pna POSTOPERATIVE DIAGNOSIS: same OPERATION: bronchoscopy SURGEON: TRANG WOODS ANESTHESIA: GA TISSUE REMOVED OR ALTERED: lavage fluid COMPLICATIONS: 0 ESTIMATED BLOOD LOSS: None INTRAOPERATIVE FINDINGS: Purulent exudate diffusely
--- NOTE | 2017-01-17 14:21 | PDOC PROGRESS REPORT ---
Subjective Progress Note for:: 12/14/16 Subjective:: Intubated arousable lethargic Physical Exam Vital Signs: Temp Pulse Resp BP Pulse Ox 98.3 F 58 L 18 138/83 H 98 12/15/16 10:00 12/15/16 10:00 12/15/16 11:02 12/15/16 11:02 12/15/16 11:15 Intake & Output 12/14/16 12/15/16 12/16/16 06:59 06:59 06:59 Intake Total 3003 4200 Output Total 3640 3165 60 Balance -637 1035 -60 Weight 165.9 kg 167.6 kg General appearance: PRESENT: no acute distress, disheveled Head exam: PRESENT: atraumatic, normocephalic Eye exam: PRESENT: conjunctiva pale Mouth exam: PRESENT: dry mucosa, neck supple, tongue midline, other - ET tube in place Neck exam: ABSENT: carotid bruit, JVD, lymphadenopathy, thyromegaly Respiratory exam: PRESENT: decreased breath sounds, prolonged expiratory phas, rales, symmetrical - Left base greater than right, unlabored Cardiovascular exam: PRESENT: RRR, +S1, +S2 Pulses: PRESENT: normal radial pulses Rectal exam: PRESENT: deferred Gentrourinary exam: PRESENT: indwelling catheter Musculoskeletal exam: PRESENT: normal inspection Skin exam: PRESENT: dry Results Laboratory Results: 12/15/16 04:34 12/15/16 04:34 12/15/16 12/15/16 12/15/16 04:34 04:34 06:05 WBC 8.8 RBC 4.02 L Hgb 12.0 L Hct 36.3 L MCV 90 MCH 30.0 MCHC 33.2 RDW 15.3 H Plt Count 186 Seg Neutrophils % 80.1 H Lymphocytes % 13.8 Monocytes % 5.4 Eosinophils % 0.2 Basophils % 0.5 Absolute Neutrophils 7.0 Absolute Lymphocytes 1.2 Absolute Monocytes 0.5 Absolute Eosinophils 0.0 Absolute Basophils 0.0 Carbonic Acid 1.35 HCO3/H2CO3 Ratio 25:1 ABG pH 7.50 H ABG pCO2 45.0 ABG pO2 36.7 L* ABG HCO3 33.9 H ABG O2 Saturation 74.5 L ABG Base Excess 9.5 FiO2 60% Sodium 141.9 Potassium 2.8 L* Chloride 100 Carbon Dioxide 35 H Anion Gap 7 BUN 16 Creatinine 0.99 Est GFR ( Amer) > 60 Est GFR (Non-Af Amer) > 60 Glucose 208 H Calcium 8.2 L 12/15/16 06:45 WBC RBC Hgb Hct MCV MCH MCHC RDW Plt Count Seg Neutrophils % Lymphocytes % Monocytes % Eosinophils % Basophils % Absolute Neutrophils Absolute Lymphocytes Absolute Monocytes Absolute Eosinophils Absolute Basophils Carbonic Acid 1.32 HCO3/H2CO3 Ratio 25:1 ABG pH 7.51 H ABG pCO2 43.8 ABG pO2 67.9 L ABG HCO3 34.1 H ABG O2 Saturation 95.0 ABG Base Excess 9.9 FiO2 60% Sodium Potassium Chloride Carbon Dioxide Anion Gap BUN Creatinine Est GFR ( Amer) Est GFR (Non-Af Amer) Glucose Calcium 12/11/16 00:00 Tracheal Aspirate Gram Stain - Final 12/11/16 12/11/16 00:49 07:25 Troponin I 0.051 0.036 Impressions: KUB X-Ray 12/11/16 00:39 IMPRESSION: Nasogastric tube extends below the diaphragm. Chest/Abdomen CTA 12/11/16 11:44 IMPRESSION: 1. NORMAL CTA OF THE CHEST. NO PULMONARY EMBOLI. 2. CARDIOMEGALY. PROMINENT AIRSPACE DISEASE IN THE RIGHT AND LEFT LOWER LOBES SECONDARY TO PNEUMONIA AND/OR ATELECTASIS. Chest X-Ray 12/14/16 11:45 IMPRESSION: Dense consolidation left lower lobe atelectasis versus pneumonia Endotracheal tube, nasogastric tube in good positioning. Assessment & Plan - Diagnosis (1) Acute on chronic diastolic (congestive) heart failure Is this a current diagnosis for this admission?: YesPlan: Patient in negative fluid balance of the last 72 hours (2) COPD exacerbation Is this a current diagnosis for this admission?: YesPlan: Bronchodilator therapy, supplemental oxygen and prednisone (3) Respiratory failure, acute and chronic Qualifiers: Respiratory failure complication: hypoxia and hypercapnia Qualified Code(s): J96.21 - Acute and chronic respiratory failure with hypoxia Is this a current diagnosis for this admission?: YesPlan: Requires FiO2's over 50% and PEEP to 10-12 cm range persistent atelectasis in left lower lobe after discussion with attending we felt this may be a mucous plug will schedule the patient for bronchoscopy - Time Critical Time spent with patient: 35 or more minutes - 60 minutes
--- NOTE | 2017-01-17 14:23 | PDOC PROGRESS REPORT ---
Subjective Progress Note for:: 12/15/16 Subjective:: Intubated arousable lethargic Physical Exam Vital Signs: Temp Pulse Resp BP Pulse Ox 98.3 F 58 L 18 138/83 H 98 12/15/16 10:00 12/15/16 10:00 12/15/16 11:02 12/15/16 11:02 12/15/16 11:15 Intake & Output 12/14/16 12/15/16 12/16/16 06:59 06:59 06:59 Intake Total 3003 4200 Output Total 3640 3165 60 Balance -637 1035 -60 Weight 165.9 kg 167.6 kg General appearance: PRESENT: no acute distress, disheveled Head exam: PRESENT: atraumatic, normocephalic Eye exam: PRESENT: conjunctiva pale Mouth exam: PRESENT: other - ET tube Neck exam: ABSENT: carotid bruit, JVD, lymphadenopathy, thyromegaly Respiratory exam: PRESENT: decreased breath sounds - Especially at left base, prolonged expiratory phas, rales, rhonchi, unlabored Cardiovascular exam: PRESENT: RRR, +S1, +S2 Pulses: PRESENT: normal radial pulses GI/Abdominal exam: PRESENT: normal bowel sounds, soft. ABSENT: distended, guarding, mass, organolmegaly, rebound, tenderness Rectal exam: PRESENT: deferred Gentrourinary exam: PRESENT: indwelling catheter Musculoskeletal exam: PRESENT: normal inspection Skin exam: PRESENT: dry, intact, warm Results Laboratory Results: 12/15/16 04:34 12/15/16 04:34 12/15/16 12/15/16 12/15/16 04:34 04:34 06:05 WBC 8.8 RBC 4.02 L Hgb 12.0 L Hct 36.3 L MCV 90 MCH 30.0 MCHC 33.2 RDW 15.3 H Plt Count 186 Seg Neutrophils % 80.1 H Lymphocytes % 13.8 Monocytes % 5.4 Eosinophils % 0.2 Basophils % 0.5 Absolute Neutrophils 7.0 Absolute Lymphocytes 1.2 Absolute Monocytes 0.5 Absolute Eosinophils 0.0 Absolute Basophils 0.0 Carbonic Acid 1.35 HCO3/H2CO3 Ratio 25:1 ABG pH 7.50 H ABG pCO2 45.0 ABG pO2 36.7 L* ABG HCO3 33.9 H ABG O2 Saturation 74.5 L ABG Base Excess 9.5 FiO2 60% Sodium 141.9 Potassium 2.8 L* Chloride 100 Carbon Dioxide 35 H Anion Gap 7 BUN 16 Creatinine 0.99 Est GFR ( Amer) > 60 Est GFR (Non-Af Amer) > 60 Glucose 208 H Calcium 8.2 L 12/15/16 06:45 WBC RBC Hgb Hct MCV MCH MCHC RDW Plt Count Seg Neutrophils % Lymphocytes % Monocytes % Eosinophils % Basophils % Absolute Neutrophils Absolute Lymphocytes Absolute Monocytes Absolute Eosinophils Absolute Basophils Carbonic Acid 1.32 HCO3/H2CO3 Ratio 25:1 ABG pH 7.51 H ABG pCO2 43.8 ABG pO2 67.9 L ABG HCO3 34.1 H ABG O2 Saturation 95.0 ABG Base Excess 9.9 FiO2 60% Sodium Potassium Chloride Carbon Dioxide Anion Gap BUN Creatinine Est GFR ( Amer) Est GFR (Non-Af Amer) Glucose Calcium 12/11/16 00:00 Tracheal Aspirate Gram Stain - Final 12/11/16 12/11/16 00:49 07:25 Troponin I 0.051 0.036 Impressions: KUB X-Ray 12/11/16 00:39 IMPRESSION: Nasogastric tube extends below the diaphragm. Chest/Abdomen CTA 12/11/16 11:44 IMPRESSION: 1. NORMAL CTA OF THE CHEST. NO PULMONARY EMBOLI. 2. CARDIOMEGALY. PROMINENT AIRSPACE DISEASE IN THE RIGHT AND LEFT LOWER LOBES SECONDARY TO PNEUMONIA AND/OR ATELECTASIS. Chest X-Ray 12/14/16 11:45 IMPRESSION: Dense consolidation left lower lobe atelectasis versus pneumonia Endotracheal tube, nasogastric tube in good positioning. Assessment & Plan - Diagnosis (1) Acute on chronic diastolic (congestive) heart failure Is this a current diagnosis for this admission?: YesPlan: Patient in negative fluid balance of the last 72 hours (2) COPD exacerbation Is this a current diagnosis for this admission?: YesPlan: Bronchodilator therapy, supplemental oxygen and prednisone (3) Respiratory failure, acute and chronic Qualifiers: Respiratory failure complication: hypoxia and hypercapnia Qualified Code(s): J96.21 - Acute and chronic respiratory failure with hypoxia Is this a current diagnosis for this admission?: YesPlan: Requires FiO2's over 50% and PEEP to 10-12 cm range persistent atelectasis in left lower lobe after discussion with attending we felt this may be a mucous plug will schedule the patient for bronchoscopy
== END 2016-12-21 14:36 | disposition home health service (06) | DRG 207 ==
LOC: ER 18:49 → UNDOADMIN 21:51 → EH 21:51 → 3W 12-19 10:57
PROVIDERS: ADMIT Family Medicine; ATTEND Family Medicine
PROC: 5A1955Z Respiratory Ventilation, Greater than 96 Consecutive Hours (ICD-10-PCS; principal; 2016-12-10)
PROC: 0BH17EZ Insertion of Endotracheal Airway into Trachea, Via Natural or Artificial Opening (ICD-10-PCS; 2016-12-10)
PROC: 0B9B8ZX Drainage of Left Lower Lobe Bronchus, Via Natural or Artificial Opening Endoscopic, Diagnostic (ICD-10-PCS; 2016-12-15)
PROC: 0BJ08ZZ Inspection of Tracheobronchial Tree, Via Natural or Artificial Opening Endoscopic (ICD-10-PCS; 2016-12-15)
DX: J44.0 Chronic obstructive pulmonary disease with (acute) lower respiratory infection (principal); J96.21 Acute and chronic respiratory failure with hypoxia; J96.22 Acute and chronic respiratory failure with hypercapnia; J15.211 Pneumonia due to Methicillin susceptible Staphylococcus aureus; E03.5 Myxedema coma; I50.33 Acute on chronic diastolic (congestive) heart failure; Z68.43 Body mass index [BMI] 50.0-59.9, adult; E66.2 Morbid (severe) obesity with alveolar hypoventilation; I11.0 Hypertensive heart disease with heart failure; J44.1 Chronic obstructive pulmonary disease with (acute) exacerbation; I16.0 Hypertensive urgency; J45.909 Unspecified asthma, uncomplicated; I48.91 Unspecified atrial fibrillation; E03.9 Hypothyroidism, unspecified; I25.2 Old myocardial infarction; K21.9 Gastro-esophageal reflux disease without esophagitis; M19.90 Unspecified osteoarthritis, unspecified site; F31.9 Bipolar disorder, unspecified; F17.200 Nicotine dependence, unspecified, uncomplicated; E87.70 Fluid overload, unspecified; E11.9 Type 2 diabetes mellitus without complications; Z90.49 Acquired absence of other specified parts of digestive tract; Z95.5 Presence of coronary angioplasty implant and graft; Z82.3 Family history of stroke; Z79.899 Other long term (current) drug therapy; Z88.6 Allergy status to analgesic agent; Z91.013 Allergy to seafood; Z91.19 Patient's noncompliance with other medical treatment and regimen; Z79.84 Long term (current) use of oral hypoglycemic drugs; Z99.81 Dependence on supplemental oxygen; Z78.1 Physical restraint status; F41.1 Generalized anxiety disorder
CPT/HCPCS: 31500; 31624; 36415; 36600; 51702; 71010; 71275; 74000; 74176; 80048; 80053; 80307; 81001; 82533; 82550; 82553; 82803; 82962; 83605; 83690; 83735; 83880; 84100; 84439; 84443; 84478; 84484; 85025; 85610; 85730; 87015; 87040; 87070; 87077; 87086; 87101; 87116; 87186; 87205; 87206; 89050; 90686; 93005; 93010; 94002; 94003; 94640; 94660; 94667; 94668; 96365; 96366; 96375; 99291; 99292; G8978-GP; G8979-GP; J0330; J0692; J1644; J1720; J1815; J1940; J1956; J2250; J2270; J2704; J3370; J3475; J3480; J3490; J7030; J7060; J7512; J7620; S0028

== ENCOUNTER 2016-12-29 22:45 | Inpatient (IN) | payer MEDICARE, MEDICAID ==
[2016-12-29] MEDS ORDERED: NITROGLYCERIN/D5W 250 ML IV PRN (23:22)
[2016-12-29] MEDS ORDERED: FUROSEMIDE INJ/PF 40 MG/4 ML SDV IV ONE (23:23)
--- NOTE | 2016-12-29 23:28 | ER Document Report ---
ED General - General Stated Complaint: DIFFICULTY BREATHING Notes: Patient is 51-year-old male presents with complaint of difficulty breathing and increased swelling in his extremities. He has a history of CHF. He was recently admitted to the hospital for similar things. He presents hypoxic. Breathing worse when he lies flat. No chest pain. No fevers. No other complaints this time. He says he has been taking his Lasix at home. TRAVEL OUTSIDE OF THE [place] IN LAST 30 DAYS: No - Related Data Allergies/Adverse Reactions: codeine [Codeine] Allergy (Severe, Verified 10/09/16 07:46) Shellfish * [Shellfish] Allergy (Verified 10/09/16 07:46) Past Medical History - Social History Smoking Status: Never Smoker Frequency of alcohol use: None Drug Abuse: None Family History: CVA, Other - DVT, multiple members - Past Medical History Cardiac Medical History: Reports: Hx Atrial Fibrillation, Hx Congestive Heart Failure - DIASTOLIC, Hx Heart Attack - x2, Hx Hypercholesterolemia, Hx Hypertension Denies: Hx DVT, Hx Pulmonary Embolism Pulmonary Medical History: Reports: Hx Asthma, Hx COPD, Hx Sleep Apnea - Noncompliant with C-PAP at home, Hx Tuberculosis - History of Neurological Medical History: Denies: Hx Seizures Endocrine Medical History: Reports: Hx Diabetes Mellitus Type 2, Hx Hypothyroidism. Denies: Hx Hyperthyroidism GI Medical History: Reports: Hx Gastroesophageal Reflux Disease. Denies: Hx Cirrhosis, Hx Hepatitis Musculoskeltal Medical History: Reports Hx Arthritis Skin Medical History: Reports Hx Cellulitis Psychiatric Medical History: Reports: Hx Bipolar Disorder, Hx Depression Infectious Medical History: Denies: Hx Hepatitis Past Surgical History: Reports: Hx Appendectomy, Hx Cardiac Surgery - 3 Stents, Hx Coronary Stent - X 3; last 2015, [facility]. Denies: Hx Open Heart Surgery, Hx Pacemaker - Immunizations Hx Diphtheria, Pertussis, Tetanus Vaccination: Yes Hx Pneumococcal Vaccination: 02/25/13 Review of Systems - Review of Systems Notes: My Normal Review Basic REVIEW OF SYSTEMS: CONSTITUTIONAL : Denies fever, chills, or sweats. Denies recent illness. EENT: Denies eye, ear, throat, or mouth pain or symptoms. Denies nasal or sinus congestion. CARDIOVASCULAR: Denies chest pain. RESPIRATORY: Difficulty breathing GASTROINTESTINAL: Denies abdominal pain. Denies nausea, vomiting, or diarrhea. Denies constipation. Last BM: GENITOURINARY: Denies difficulty urinating, painful urination, burning, frequency, or blood in urine. MUSCULOSKELETAL: Denies neck or back pain or joint pain or swelling. SKIN: Denies rash or skin lesions. NEUROLOGICAL: Denies altered mental status or loss of consciousness. Denies headache. Denies weakness or paralysis or loss of use of either side. Denies problems with gait or speech. Denies sensory or motor loss. ALL OTHER SYSTEMS REVIEWED AND NEGATIVE. Physical Exam - Vital signs Vitals: Temp Pulse Resp BP 98.4 F 89 28 H 199/93 H 12/29/16 22:53 12/29/16 22:53 12/29/16 22:53 12/29/16 22:53 - Notes Notes: General Appearance: Well nourished, alert, cooperative, moderate acute distress , no obvious discomfort. Vitals: reviewed, See vital signs table. Head: no swelling or tenderness to the head Eyes: PERRL, EOMI, Conjuctiva clear Mouth: No decreasd moisture Neck: Supple, no neck tenderness, No thyromegaly Lungs: No wheezing, diffuse rales, No rhonci, No accessory muscle use, good air exchange bilaterally. Heart: Normal rate, Regular rythm, No murmur, no rub Abdomen: Normal BS, soft, No rigidity, No abdominal tenderness, No guarding, no rebound, no abdominal masses, no organomegaly Extremities: strength 5/5 in all extremities, good pulses in all extremities, no swelling or tenderness in the extremities, 3+ bilateral lower extremity edema. Skin: warm, dry, appropriate color, no rash Neuro: speech clear, oriented x 3, normal affect, responds appropriately to questions. Course - Vital Signs Vital signs: Temp Pulse Resp BP Pulse Ox 97.4 F 66 20 156/84 H 94 12/30/16 05:35 12/30/16 05:35 12/30/16 05:35 12/30/16 05:35 12/30/16 05:35 - Laboratory Result Diagrams: 12/29/16 23:15 12/29/16 23:15 Laboratory results interpreted by me: 12/29/16 12/29/16 23:15 23:15 RBC 4.27 L Hgb 12.9 L RDW 14.8 H Carbon Dioxide 34 H Glucose 182 H Creatine Kinase 33 L - EKG Interpretation by Me Additional EKG results interpreted by me: 12/29/16 23:27 EKG is reviewed and interpreted by me. EKG shows sinus rhythm with a rate of [address] segment elevation or depression. No ischemic T wave inversions. IN interval, QRS duration, QTC intervals are within normal range. No concerning changes in comparison to old EKG from 12/10/2016. 12/29/16 23:28 - Transfer of Care Notes: 12/30/16 06:32 Patient symptoms improved significantly with the nitro drip and the BiPAP. Patient was satting only 91% on 5 L of oxygen. He was a little tachypneic 21st arrived. That has all since resolved with BiPAP. Patient's lung cordova of also cleared. He no longer has a large amount rales that he initially had. Due to the patient's presentation with significant fluid overload and need for supplemental oxygen I felt appropriate to admit the patient. I did speak with the hospitalist who agrees to admit the patient. Dictation of this chart was performed using voice recognition software; therefore, there may be some unintended grammatical errors. Discharge - Discharge Clinical Impression: Pulmonary edema Qualifiers: Chronicity: acute Qualified Code(s): J81.0 - Acute pulmonary edema Condition: Stable Disposition: ADMITTED OBSERVATION Admitting Provider: Hospitalist Unit Admitted: Telemetry
[2016-12-29 23:29] LABS: ABSOLUTE BASOPHILS # (AUTO) 0.1 10^3/uL (0.0-0.2); ABSOLUTE EOSINOPHILS # (AUTO) 0.4 10^3/uL (0.0-0.6); ABSOLUTE LYMPHOCYTES (AUTO) 1.8 10^3/uL (0.5-4.7); ABSOLUTE MONOCYTES (AUTO) 0.6 10^3/uL (0.1-1.4); ABSOLUTE NEUT (AUTO) 6.5 10^3/uL (1.7-8.2); EOSINOPHILS % (AUTO) 4.1 % (0-6); HEMATOCRIT 38.3 % (37.9-51.0); HEMOGLOBIN 12.9 g/dL (13.5-17.0); HGB HCT DIFFERENCE 0.4; LYMPHOCYTES % (AUTO) 19.5 % (13-45); MEAN CORPUSCULAR HEMOGLOBIN 30.3 pg (27.0-33.4); MEAN CORPUSCULAR HGB CONC 33.8 g/dL (32.0-36.0); MEAN CORPUSCULAR VOLUME 90 fl (80-97); MONOCYTES % (AUTO) 6.3 % (3-13); RED BLOOD COUNT 4.27 10^6/uL (4.35-5.55); RED CELL DISTRIBUTION WIDTH 14.8 % (11.5-14.0); SEGMENTED NEUTROPHILS % (AUTO) 69.1 % (42-78); WHITE BLOOD COUNT 9.5 10^3/uL (4.0-10.5)
[2016-12-29 23:58] LABS: ALANINE AMINOTRANSFERASE 26 U/L (21-72); ALBUMIN 3.8 g/dL (3.5-5.0); ALKALINE PHOSPHATASE 87 U/L (38-126); ANION GAP 10 (5-19); ASPARTATE AMINO TRANSFERASE 19 U/L (17-59); BILIRUBIN,TOTAL 0.5 mg/dL (0.2-1.3); BLOOD UREA NITROGEN 14 mg/dL (7-20); CALCIUM 9.4 mg/dL (8.4-10.2); CARBON DIOXIDE 34 mmol/L (22-30); CHLORIDE 98 mmol/L (98-107); CREATINE KINASE 33 U/L (55-170); CREATININE RESULT 1.08 mg/dL (0.52-1.25); GLUCOSE 182 mg/dL (75-110); POTASSIUM 4.2 mmol/L (3.6-5.0); SODIUM 142.1 mmol/L (137-145); TOTAL PROTEIN 6.8 g/dL (6.3-8.2)
[2016-12-30 00:10] LABS: CREATINE KINASE MB 1.31 ng/mL (<4.55)
[2016-12-30 00:13] LABS: TROPONIN I < 0.012 ng/mL
[2016-12-30] MEDS ORDERED: NITROGLYCERIN 0.4 MG/TAB 25 TAB/BOTTLE SL PRN (01:33)
[2016-12-30] MEDS ORDERED: HYDRALAZINE HCL INJ/PF 20 MG/1 ML SDV IV PRN (01:34)
[2016-12-30] MEDS ORDERED: MAGNESIUM HYDROXIDE SUSP 30 ML UDCUP PO PRN (01:35)
[2016-12-30] MEDS ORDERED: ISOSORBIDE MONONITRATE 30 MG TAB.ER.24H PO ONE (01:45)
[2016-12-30] MEDS ORDERED: METOPROLOL TARTRATE 25 MG TABLET PO ONE (01:45)
[2016-12-30] MEDS: IPRATROPIUM/ALBUTEROL 0.5-2.5 MG/3 ML AMPUL NEB SCH ×4 (02:15→19:34)
[2016-12-30] MEDS ORDERED: NITROGLYCERIN 2% OINTMENT 1 GM PACKET TP ONE (03:45)
[2016-12-30 06:11] LABS: CREATINE KINASE MB 1.13 ng/mL (<4.55)
[2016-12-30 06:12] LABS: TROPONIN I < 0.012 ng/mL
[2016-12-30] MEDS: HEPARIN SOD (PORCINE) 5,000 UNIT/ML 1 ML SYRINGE SUBCUT SCH ×3 (06:39→21:28)
--- NOTE | 2016-12-30 07:24 | PDOC H&P ---
History of Present Illness Admission Date/PCP: 12/30/16 01:35 ANJALI BROWNLEE MD Patient complains of: Shortness of breath and leg swelling History of Present Illness: DESIRAE MALLORY is a 51 year old male well-known to the hospitalist service for recurrent exacerbation of diastolic heart failure presenting after 24 hours of shortness of breath, orthopnea and +2 lower extremity edema. Denies chest pain though admits compliance with medication but unaware of dietary restrictions enervating to approximately 64 ounces of water per day. His blood pressure in the emergency room his found to be 199/93. He started on IV nitroglycerin IV Lasix and referred to the hospitalist for admission. Past Medical History Cardiac Medical History: Reports: Atrial Fibrillation, Congestive Heart Failure - DIASTOLIC, Myocardial Infarction - x2, Hyperlipidema, Hypertension Denies: DVT, Pulmonary Embolism Pulmonary Medical History: Reports: Asthma, Chronic Obstructive Pulmonary Disease (COPD), Sleep Apnea - Noncompliant with C-PAP at home, Tuberculosis - History of Neurological Medical History: Denies: Seizures Endocrine Medical History: Reports: Diabetes Mellitus Type 2, Hypothyroidism Denies: Hyperthyroidism GI Medical History: Reports: Gastroesophageal Reflux Disease Denies: Cirrhosis, Hepatitis Musculoskeltal Medical History: Reports: Arthritis Psychiatric Medical History: Reports: Bipolar Disorder, Depression, Tobacco Dependency Past Surgical History Past Surgical History: Reports: Appendectomy, Coronary Stent - X 3; last 2015, [facility] Denies: Pacemaker Social History Information Source: Patient Lives with: Family Smoking Status: Never Smoker Frequency of Alcohol Use: None Hx Recreational Drug Use: No Drugs: Marijuana Hx Prescription Drug Abuse: No - Advance Directive Resuscitation Status: Full Code Family History Family History: CVA, Other - DVT, multiple members Parental Family History Reviewed: Yes Children Family History Reviewed: Yes Sibling(s) Family History Reviewed.: Yes Medication/Allergy Home Medications: Atorvastatin Calcium 40 mg PO DAILY 06/02/14 Nitroglycerin 1 tab PO PRN PRN 06/02/14 Furosemide [Lasix 40 mg Tablet] 40 mg PO QAM #30 tablet 06/05/14 Candesartan Cilexetil 1 tab PO DAILY 10/09/16 Clopidogrel Bisulfate [Clopidogrel] 1 tab PO DAILY 10/09/16 Fluticasone Propionate 1 spray IH DAILY 10/09/16 Isosorbide Mononitrate [Isosorbide Mononitrate ER] 30 mg PO DAILY 10/09/16 Liraglutide [Victoza 2-Shemar] 0.1 ml SUBCUT DAILY 10/09/16 Metoprolol Tartrate 25 mg PO DAILY 10/09/16 Sertraline HCl 100 mg PO DAILY 10/09/16 Tiotropium [place] [Spiriva Handihaler 5 Cap/Kit (18 Mcg/Cap)] 1 cap IH DAILY Albuterol Sulfate [Ventolin 0.083% Neb 2.5 mg/3 mL Ampul] 2.5 mg NEB [id number] PRN #60 vial.neb 12/21/16 Ipratropium/Albuterol Sulfate [Duoneb 3 ml Ampul] 3 ml NEB RTQ6 #120 vial.neb Levofloxacin [Levaquin 750 mg Tablet] 750 mg NG DAILY #4 tablet 12/21/16 Levothyroxine Sodium [Synthroid 0.1 mg Tablet] 0.1 mg PO DAILY #30 tablet Prednisone [Sterapred Ds] 1 pkg PO ASDIR PRN 12 Days 12/21/16 Allergies/Adverse Reactions: codeine [Codeine] Allergy (Severe, Verified 10/09/16 07:46) Shellfish * [Shellfish] Allergy (Verified 10/09/16 07:46) Review of Systems Constitutional: PRESENT: as per HPI, fatigue, weakness, weight gain. ABSENT: anorexia, chills, fever(s), headache(s), night sweats Eyes: ABSENT: visual disturbances Ears: ABSENT: hearing changes Cardiovascular: ABSENT: chest pain, dyspnea on exertion, edema, orthropnea, palpitations Respiratory: PRESENT: cough, dyspnea. ABSENT: hemoptysis Gastrointestinal: ABSENT: abdominal pain, constipation, diarrhea, hematemesis, hematochezia, nausea, vomiting Genitourinary: ABSENT: dysuria, hematuria Musculoskeletal: ABSENT: joint swelling Integumentary: PRESENT: other - Bilateral lower extremity venous stasis with chronic changes. ABSENT: rash, wounds Neurological: ABSENT: abnormal gait, abnormal speech, confusion, dizziness, focal weakness, syncope Psychiatric: ABSENT: anxiety, depression, homidical ideation, suicidal ideation Endocrine: ABSENT: cold intolerance, heat intolerance, polydipsia, polyuria Hematologic/Lymphatic: ABSENT: easy bleeding, easy bruising Physical Exam Vital Signs: Temp Pulse Resp BP Pulse Ox 97.4 F 66 20 156/84 H 94 12/30/16 05:35 12/30/16 05:35 12/30/16 05:35 12/30/16 05:35 12/30/16 05:35 Intake & Output 12/28/16 12/29/16 12/30/16 11:59 11:59 11:59 Intake Total 0 Output Total 1500 Balance -1500 Weight 168.3 kg General appearance: PRESENT: cooperative, mild distress, morbidly obese Head exam: PRESENT: atraumatic, normocephalic Eye exam: PRESENT: conjunctiva pink, EOMI, PERRLA. ABSENT: scleral icterus Mouth exam: PRESENT: moist, tongue midline Neck exam: ABSENT: carotid bruit, JVD, lymphadenopathy, thyromegaly Respiratory exam: PRESENT: accessory muscle use, crackles, decreased breath sounds, symmetrical, tachypnea. ABSENT: rales, rhonchi, wheezes Cardiovascular exam: PRESENT: gallop, RRR. ABSENT: diastolic murmur, rubs, systolic murmur Pulses: PRESENT: normal dorsalis pedis pul Vascular exam: PRESENT: normal capillary refill GI/Abdominal exam: PRESENT: normal bowel sounds, soft. ABSENT: distended, guarding, mass, organolmegaly, rebound, tenderness Rectal exam: PRESENT: deferred Extremities exam: PRESENT: full ROM, +2 edema, other - Bilateral lower extremity chronic changes of venous stasis. ABSENT: calf tenderness, clubbing, pedal edema Musculoskeletal exam: PRESENT: ambulatory Neurological exam: PRESENT: alert, awake, oriented to person, oriented to place , oriented to time, oriented to situation, CN II-XII grossly intact. ABSENT: motor sensory deficit Psychiatric exam: PRESENT: appropriate affect, normal mood. ABSENT: homicidal ideation, suicidal ideation Skin exam: PRESENT: dry, intact, warm. ABSENT: cyanosis, rash Results Laboratory Results: 12/30/16 12/30/16 05:07 05:07 Creatine Kinase 32 L CK-MB (CK-2) 1.13 Troponin I < 0.012 Impressions: Chest X-Ray 12/29/16 23:22 IMPRESSION: Short interval increase in pulmonary vascular congestion in the setting of cardiomegaly suggests positive fluid balance/early CHF pattern. Infectious etiology is not excluded. Assessment & Plan - Diagnosis (1) Acute on chronic diastolic (congestive) heart failure Is this a current diagnosis for this admission?: YesPlan: Aggressive blood pressure control, diuresis and education (2) Hypertensive urgency Is this a current diagnosis for this admission?: YesPlan: Nitroglycerin, IV Lasix, MARIAMA inhibitor (3) Sleep apnea Qualifiers: Sleep apnea type: unspecified type Qualified Code(s): G47.30 - Sleep apnea, unspecified Is this a current diagnosis for this admission?: YesPlan: Education and BiPAP use while asleep (4) Noncompliance Is this a current diagnosis for this admission?: YesPlan: Education - Time Time Spent: 30 to 50 Minutes
[2016-12-30] MEDS ORDERED: CLOPIDOGREL BISULFATE 75 MG TABLET PO SCH (10:00)
[2016-12-30] MEDS ORDERED: FUROSEMIDE INJ/PF 40 MG/4 ML SDV IV SCH (10:00)
[2016-12-30] MEDS ORDERED: CANDESARTAN CILEXETIL PO SCH (10:00)
[2016-12-30] MEDS: CLOPIDOGREL BISULFATE 75 MG TABLET PO SCH (10:27)
[2016-12-30] MEDS: ATORVASTATIN CALCIUM 20 MG TABLET PO SCH (10:27)
[2016-12-30] MEDS: LEVOTHYROXINE SODIUM 0.1 MG TABLET PO SCH (10:28)
[2016-12-30] MEDS: LOSARTAN POTASSIUM 50 MG TABLET PO SCH ×2 (10:28→21:29)
[2016-12-30] MEDS: SERTRALINE HCL 50 MG TABLET PO SCH (10:29)
[2016-12-30] MEDS: NITROGLYCERIN 2% OINTMENT 1 GM PACKET TP SCH ×3 (10:30→21:28)
[2016-12-30] MEDS: FLUTICASONE NASAL SPRAY 50 MCG/SPRY 120 SPRAY/16 GM NAREB SCH (10:31)
[2016-12-30] MEDS: DOCUSATE SODIUM 100 MG CAPSULE PO SCH (10:32)
[2016-12-30] MEDS: TIOTROPIUM BROMIDE DPI 5 CAP/KIT (18 MCG/CAP) IH SCH (10:32)
--- NOTE | 2016-12-30 10:43 | EKG REPORT ---
SEVERITY:- ABNORMAL ECG - SINUS RHYTHM PROBABLE LEFT ATRIAL ABNORMALITY LEFT ANTERIOR FASCICULAR BLOCK CONSIDER ANTERIOR INFARCT NONSPECIFIC T ABNORMALITIES, LATERAL LEADS CAN NOT R/O INFERIOR SC : Confirmed by: Patria Mccain 30-Dec-2016 10:42:31
[2016-12-30 12:33] LABS: CREATINE KINASE MB 1.41 ng/mL (<4.55)
[2016-12-30 12:37] LABS: TROPONIN I < 0.012 ng/mL
[2016-12-30] MEDS: FUROSEMIDE INJ/PF 40 MG/4 ML SDV IV SCH ×2 (14:51→21:29)
--- NOTE | 2016-12-30 16:53 | PDOC PROGRESS REPORT ---
Subjective Progress Note for:: 12/30/16 Subjective:: Patient reports that he has not had a repeat sleep study since he had his initial one approximately 12 years ago. He reports that he's been compliant with his medications. Patient reports that he's been having diarrhea and does have some abdominal discomfort. Patient denies chest pain, nausea, vomiting, fevers, chills, constipation, headache, new onset weakness. Physical Exam Vital Signs: Temp Pulse Resp BP Pulse Ox 97.4 F 61 20 156/84 H 94 12/30/16 05:35 12/30/16 07:00 12/30/16 05:35 12/30/16 05:35 12/30/16 05:35 Intake & Output 12/29/16 12/30/16 12/31/16 06:59 06:59 06:59 Intake Total 0 Output Total 1500 Balance -1500 Weight 168.3 kg Exam: General: Awake alert and oriented x3, no acute respiratory distress HEENT: AT/NC, PERRL, EOMI, oropharynx is moist, pink, no scleral icterus, no conjunctival injection Neck: Neck examination limited by body habitus, trachea midline Chest: Full examination limited by body habitus, diminished bases bilaterally, no wheezes rhonchi or rales CV: normal S1 and S2, no appreciable murmur, rub, or gallop Abdomen: Soft, diffusely tender to palpation,distended, active bowel sounds; no rebound, rigidity, or guarding Extremities: No cyanosis; +clubbing, 3+edema Neuro: Cranial nerves II through XII are grossly intact without focal deficits; awake alert and orientedx3 Psych: Normal mood and affect Results Laboratory Results: 12/30/16 12/30/16 05:07 05:07 Creatine Kinase 32 L CK-MB (CK-2) 1.13 Troponin I < 0.012 Impressions: Chest X-Ray 12/29/16 23:22 IMPRESSION: Short interval increase in pulmonary vascular congestion in the setting of cardiomegaly suggests positive fluid balance/early CHF pattern. Infectious etiology is not excluded. Assessment & Plan - Diagnosis (1) Diarrhea Qualifiers: Diarrhea type: presumed infectious Qualified Code(s): A09 - Infectious gastroenteritis and colitis, unspecified Is this a current diagnosis for this admission?: YesPlan: Obtain C. difficile and add Bacid. (2) Acute on chronic diastolic (congestive) heart failure Is this a current diagnosis for this admission?: YesPlan: Patient reports drinking in excess of 64 ounces of water daily. Will fluid restrict patient 2 L. Have discussed treatment modality for this. No recent echo. Will order. Most recent echo done in 2013 reveals mild diastolic DYSFUNCTION Patient on isosorbide, nitroglycerin, Plavix, metoprolol, and Lasix. Have added Cozaar (3) Hypertensive urgency Is this a current diagnosis for this admission?: YesPlan: Cozaar. Continue when necessary hydralazine. (4) Hypothyroidism Qualifiers: Hypothyroidism type: unspecified Qualified Code(s): E03.9 - Hypothyroidism, unspecified Is this a current diagnosis for this admission?: YesPlan: Continue Synthroid at current dose. Patient is not due for repeat level for 3- 4 weeks. (5) Sleep apnea Qualifiers: Sleep apnea type: unspecified type Qualified Code(s): G47.30 - Sleep apnea, unspecified Is this a current diagnosis for this admission?: YesPlan: Recommend patient have repeat sleep study as an outpatient. Will place patient on BiPAP at 18/8. (7) Noncompliance Is this a current diagnosis for this admission?: Yes (11) Morbid obesity with BMI of 45.0-49.9, adult Is this a current diagnosis for this admission?: Yes - Time Time Spent with patient: 25-34 minutes Medications reviewed and adjusted accordingly: Yes
[2016-12-30] MEDS: METOPROLOL TARTRATE 25 MG TABLET PO SCH (17:20)
[2016-12-30] MEDS: ISOSORBIDE MONONITRATE 30 MG TAB.ER.24H PO SCH (17:20)
[2016-12-30] MEDS: METFORMIN HCL 500 MG TABLET PO SCH (17:20)
[2016-12-30 18:15] LABS: CREATINE KINASE MB 1.54 ng/mL (<4.55)
[2016-12-30 18:20] LABS: TROPONIN I < 0.012 ng/mL
[2016-12-30] MEDS: BUDESONIDE/FORMOTEROL 160-4.5 MCG 60 PUFF/6 GM MDI IH SCH (18:30)
[2016-12-30] MEDS ORDERED: BUDESONIDE/FORMOTEROL 160-4.5 MCG 60 PUFF/6 GM MDI IH ONE (19:10)
[2016-12-31] MEDS: IPRATROPIUM/ALBUTEROL 0.5-2.5 MG/3 ML AMPUL NEB SCH ×4 (02:37→20:22)
[2016-12-31] MEDS: NITROGLYCERIN 2% OINTMENT 1 GM PACKET TP SCH (03:08)
[2016-12-31 05:24] LABS: ABSOLUTE BASOPHILS # (AUTO) 0.1 10^3/uL (0.0-0.2); ABSOLUTE EOSINOPHILS # (AUTO) 0.3 10^3/uL (0.0-0.6); ABSOLUTE LYMPHOCYTES (AUTO) 1.5 10^3/uL (0.5-4.7); ABSOLUTE MONOCYTES (AUTO) 0.5 10^3/uL (0.1-1.4); ABSOLUTE NEUT (AUTO) 5.9 10^3/uL (1.7-8.2); BASOPHILS % (AUTO) 0.7 % (0-2); EOSINOPHILS % (AUTO) 3.7 % (0-6); HEMATOCRIT 37.6 % (37.9-51.0); HEMOGLOBIN 12.1 g/dL (13.5-17.0); HGB HCT DIFFERENCE -1.3; LYMPHOCYTES % (AUTO) 18.6 % (13-45); MEAN CORPUSCULAR HEMOGLOBIN 29.6 pg (27.0-33.4); MEAN CORPUSCULAR HGB CONC 32.1 g/dL (32.0-36.0); MEAN CORPUSCULAR VOLUME 92 fl (80-97); MONOCYTES % (AUTO) 6.1 % (3-13); RED BLOOD COUNT 4.09 10^6/uL (4.35-5.55); RED CELL DISTRIBUTION WIDTH 15.4 % (11.5-14.0); SEGMENTED NEUTROPHILS % (AUTO) 70.9 % (42-78); WHITE BLOOD COUNT 8.3 10^3/uL (4.0-10.5)
[2016-12-31 05:35] LABS: ANION GAP 16 (5-19); BLOOD UREA NITROGEN 19 mg/dL (7-20); CALCIUM 8.4 mg/dL (8.4-10.2); CARBON DIOXIDE 34 mmol/L (22-30); CHLORIDE 90 mmol/L (98-107); CREATININE RESULT 1.05 mg/dL (0.52-1.25); GLUCOSE 131 mg/dL (75-110); SODIUM 139.7 mmol/L (137-145)
[2016-12-31] MEDS: FUROSEMIDE INJ/PF 40 MG/4 ML SDV IV SCH (05:49)
[2016-12-31] MEDS: HEPARIN SOD (PORCINE) 5,000 UNIT/ML 1 ML SYRINGE SUBCUT SCH ×3 (05:49→21:33)
[2016-12-31 08:57] LABS: VENOUS BLOOD BASE EXCESS 11.5 mmol/L; VENOUS BLOOD HCO3 41.3 mmol/L (20-32); VENOUS BLOOD PH 7.31 (7.30-7.42)
[2016-12-31 09:00] LABS: VENOUS BLOOD PCO2 84.1 mmHg (35-63)
[2016-12-31] MEDS ORDERED: BUMETANIDE INJ/PF 1 MG/4 ML SDV IV ONE (09:00)
[2016-12-31] MEDS: SERTRALINE HCL 50 MG TABLET PO SCH (09:50)
[2016-12-31] MEDS: LACTOBACILLUS ACIDOPHILUS 250 MG TAB PO SCH ×2 (09:50→21:32)
[2016-12-31] MEDS: DOCUSATE SODIUM 100 MG CAPSULE PO SCH (09:50)
[2016-12-31] MEDS: CLOPIDOGREL BISULFATE 75 MG TABLET PO SCH (09:50)
[2016-12-31] MEDS: LEVOTHYROXINE SODIUM 0.1 MG TABLET PO SCH (09:50)
[2016-12-31] MEDS: ATORVASTATIN CALCIUM 20 MG TABLET PO SCH (09:50)
[2016-12-31] MEDS: LOSARTAN POTASSIUM 50 MG TABLET PO SCH ×2 (09:51→21:32)
[2016-12-31] MEDS: METFORMIN HCL 500 MG TABLET PO SCH ×2 (09:51→17:54)
[2016-12-31] MEDS: BUDESONIDE/FORMOTEROL 160-4.5 MCG 60 PUFF/6 GM MDI IH SCH ×2 (09:51→17:54)
[2016-12-31] MEDS: DILTIAZEM HCL 180 MG CAPSULE.CR PO SCH (09:51)
[2016-12-31] MEDS: TIOTROPIUM BROMIDE DPI 5 CAP/KIT (18 MCG/CAP) IH SCH (09:52)
[2016-12-31] MEDS: FLUTICASONE NASAL SPRAY 50 MCG/SPRY 120 SPRAY/16 GM NAREB SCH (09:52)
[2016-12-31] MEDS ORDERED: METOLAZONE 5 MG TABLET PO SCH (10:00)
--- NOTE | 2016-12-31 12:21 | PDOC CONSULTATION ---
Consultation Consult Date: 12/31/16 Attending physician:: LISA ZELAYA Consult reason:: hypoventilation History of Present Illness Admission Date/PCP: 12/30/16 01:35 ANJALI BROWNLEE MD History of Present Illness: DESIRAE MALLORY is a 51 year old male well-known to the hospitalist service for recurrent exacerbation of diastolic heart failure presenting after 24 hours of shortness of breath, orthopnea and +2 lower extremity edema. Denies chest pain though admits compliance with medication but unaware of dietary restrictions enervating to approximately 64 ounces of water per day. His blood pressure in the emergency room his found to be 199/93. He started on IV nitroglycerin IV Lasix and referred to the hospitalist for admission. Again during his hospitalization he demonstrated severe hypercapnia despite the use of BiPAP as demonstrated by his PCO2 of 84. He is approximately 10 days status post discharge from the ICU where he required mechanical ventilation to relieve his hypercapnia. Past Medical History Cardiac Medical History: Reports: Atrial Fibrillation, Congestive Heart Failure - DIASTOLIC, Myocardial Infarction - x2, Hyperlipidema, Hypertension Denies: DVT, Pulmonary Embolism Pulmonary Medical History: Reports: Asthma, Chronic Obstructive Pulmonary Disease (COPD), Sleep Apnea - Noncompliant with C-PAP at home, Tuberculosis - History of Neurological Medical History: Denies: Seizures Endocrine Medical History: Reports: Diabetes Mellitus Type 2, Hypothyroidism Denies: Hyperthyroidism GI Medical History: Reports: Gastroesophageal Reflux Disease Denies: Cirrhosis, Hepatitis Musculoskeltal Medical History: Reports: Arthritis Psychiatric Medical History: Reports: Bipolar Disorder, Depression, Tobacco Dependency Past Surgical History Past Surgical History: Reports: Appendectomy, Coronary Stent - X 3; last 2015, [facility] Denies: Pacemaker Social History Information Source: Patient, [facility] Records Lives with: Family Smoking Status: Current Every Day Smoker Cigarettes Packs Per Day: 1 Number of Years Smokin Last Time Smoked: 12/29/16 Frequency of Alcohol Use: None Hx Recreational Drug Use: No Drugs: None Hx Prescription Drug Abuse: No - Advance Directive Resuscitation Status: Full Code Family History Family History: CVA, Other - DVT, multiple members Parental Family History Reviewed: No Children Family History Reviewed: No Sibling(s) Family History Reviewed.: No Medication/Allergy Home Medications: Albuterol Sulfate [Ventolin 0.083% Neb 2.5 mg/3 mL Ampul] 3 ml NEB TID 12/30/16 Budesonide/Formoterol Fumarate [Symbicort HFA 160-4.5 mcg Inhaler 6 gm] 2 puff IH BID 12/30/16 Clopidogrel Bisulfate [Plavix 75 mg Tablet] 75 mg PO DAILY 12/30/16 Diltiazem HCl [Diltiazem ER] 360 mg PO DAILY 12/30/16 Fluticasone Propionate [Flonase Nasal [place] 50 Mcg/[place] 16 gm] 1 spray NASL DAILY 12/30/16 Furosemide [Lasix] 40 mg PO DAILY 12/30/16 Isosorbide Mononitrate [Isosorbide Mononitrate ER] 30 mg PO DAILY 12/30/16 Metformin HCl [Glucophage] 100 mg PO BID 12/30/16 Metoprolol Tartrate [Lopressor 25 mg Tablet] 25 mg PO DAILY 12/30/16 Naproxen 500 mg PO BIDP PRN 12/30/16 Sertraline HCl [Zoloft] 100 mg PO DAILY 12/30/16 Tiotropium [place] [Spiriva Handihaler 5 Cap/Kit (18 Mcg/Cap)] 1 puff IH DAILY 12/30/16 Allergies/Adverse Reactions: codeine [Codeine] Allergy (Severe, Verified 10/09/16 07:46) Shellfish * [Shellfish] Allergy (Verified 10/09/16 07:46) Physical Exam Vital Signs: Temp Pulse Resp BP Pulse Ox 97.3 F 71 18 127/53 H 94 12/31/16 04:00 12/31/16 08:22 12/31/16 08:22 12/31/16 04:00 12/31/16 08:22 Intake & Output 12/30/16 12/31/16 01/01/17 06:59 06:59 06:59 Intake Total 0 610 Output Total 1500 1350 Balance -1500 -740 Weight 168.3 kg 168.8 kg General appearance: PRESENT: no acute distress, cooperative, disheveled, morbidly obese Head exam: PRESENT: atraumatic, normocephalic Eye exam: PRESENT: conjunctiva pale, EOMI, PERRLA Mouth exam: PRESENT: neck supple, tongue midline Neck exam: ABSENT: carotid bruit, JVD, lymphadenopathy, thyromegaly Respiratory exam: PRESENT: decreased breath sounds, prolonged expiratory phas, rales, rhonchi, symmetrical, unlabored Cardiovascular exam: PRESENT: RRR, +S1, +S2 Pulses: PRESENT: normal radial pulses GI/Abdominal exam: PRESENT: normal bowel sounds, soft, other - Morbidly obese. ABSENT: distended, guarding, mass, organolmegaly, rebound, tenderness Rectal exam: PRESENT: deferred Gentrourinary exam: PRESENT: indwelling catheter Extremities exam: PRESENT: +2 edema, other - 2+ erythema bilateral lower extremities Neurological exam: PRESENT: awake Psychiatric exam: PRESENT: normal mood Skin exam: PRESENT: erythema Results Laboratory Results: 12/31/16 04:18 12/31/16 04:18 12/31/16 12/31/16 12/31/16 04:18 04:18 08:49 WBC 8.3 RBC 4.09 L Hgb 12.1 L Hct 37.6 L MCV 92 MCH 29.6 MCHC 32.1 RDW 15.4 H Plt Count 123 L Seg Neutrophils % 70.9 Lymphocytes % 18.6 Monocytes % 6.1 Eosinophils % 3.7 Basophils % 0.7 Absolute Neutrophils 5.9 Absolute Lymphocytes 1.5 Absolute Monocytes 0.5 Absolute Eosinophils 0.3 Absolute Basophils 0.1 VBG pH VBG pCO2 VBG HCO3 VBG Base Excess Sodium 139.7 Potassium 4.0 Chloride 90 L Carbon Dioxide 34 H Anion Gap 16 BUN 19 Creatinine 1.05 Est GFR ( Amer) > 60 Est GFR (Non-Af Amer) > 60 Glucose 131 H Lactic Acid 0.9 Calcium 8.4 12/31/16 08:49 WBC RBC Hgb Hct MCV MCH MCHC RDW Plt Count Seg Neutrophils % Lymphocytes % Monocytes % Eosinophils % Basophils % Absolute Neutrophils Absolute Lymphocytes Absolute Monocytes Absolute Eosinophils Absolute Basophils VBG pH 7.31 VBG pCO2 84.1 H* VBG HCO3 41.3 H VBG Base Excess 11.5 Sodium Potassium Chloride Carbon Dioxide Anion Gap BUN Creatinine Est GFR ( Amer) Est GFR (Non-Af Amer) Glucose Lactic Acid Calcium 12/30/16 12/30/16 12/30/16 05:07 05:07 11:34 Creatine Kinase 32 L 34 L CK-MB (CK-2) 1.13 Troponin I < 0.012 12/30/16 12/30/16 12/30/16 11:34 17:31 17:31 Creatine Kinase 32 L CK-MB (CK-2) 1.41 1.54 Troponin I < 0.012 < 0.012 Impressions: Chest X-Ray 12/29/16 23:22 IMPRESSION: Short interval increase in pulmonary vascular congestion in the setting of cardiomegaly suggests positive fluid balance/early CHF pattern. Infectious etiology is not excluded. Assessment & Plan - Diagnosis (1) COPD exacerbation Is this a current diagnosis for this admission?: YesPlan: Stop smoking continue current bronchodilator therapy (2) Morbid obesity with BMI of 45.0-49.9, adult Is this a current diagnosis for this admission?: YesPlan: Weight loss follow thyroid function test (3) Pulmonary edema Qualifiers: Chronicity: acute Qualified Code(s): J81.0 - Acute pulmonary edema Is this a current diagnosis for this admission?: YesPlan: Echo was unable to demonstrate pulmonary hypertension (4) Hypothyroidism Qualifiers: Hypothyroidism type: unspecified Qualified Code(s): E03.9 - Hypothyroidism, unspecified Is this a current diagnosis for this admission?: Yes (5) ARIADNA (obstructive sleep apnea) Is this a current diagnosis for this admission?: YesPlan: Patient is failed by CPAP and repeatedly demonstrates hypercapnia patient would be a good candidate for trilogy vent (6) Obesity hypoventilation syndrome Is this a current diagnosis for this admission?: YesPlan: Combined with obstructive sleep apnea hypercapnic hypoxic ventilatory failure patient will be optimally treated with a trilogy in order to maintain an adequate tidal volume and minute ventilation as he has failed BiPAP - Time Time Spent: 50 to 70 Minutes - 60 minute - Plan Summary Plan Summary: Patient meets criteria and strongly urged to be given and to use a trilogy ventilator
[2016-12-31] MEDS: PREGABALIN 25 MG CAPSULE PO SCH ×2 (14:55→21:32)
[2016-12-31 17:15] LABS: ARTERIAL BLOOD BASE EXCESS 14.3 mmol/L; ARTERIAL BLOOD O2 SATURATION 88.5 % (94-98)
[2016-12-31] MEDS: ISOSORBIDE MONONITRATE 30 MG TAB.ER.24H PO SCH (17:54)
[2016-12-31] MEDS: METOPROLOL TARTRATE 25 MG TABLET PO SCH (17:54)
[2016-12-31] MEDS ORDERED: BUMETANIDE INJ/PF 1 MG/4 ML SDV IV SCH ×2 (18:00)
--- NOTE | 2016-12-31 18:47 | XCELERA REPORT ---
[address] [address] Transthoracic Echocardiogram Report Name: DESIRAE MALLORY Age: 51 yrs Gender: Male : 1965 Patient Status: Inpatient Patient Location: [id number] Study Date: 12/31/2016 02:29 PM Height: 73 in Weight: 371 lb BSA: 2.8 m2 Procedure: A two-dimensional transthoracic echocardiogram with color flow and Doppler was performed. Study Quality: Technically suboptimal. The study was technically limited with all images being suboptimal in quality. Reason For Study: chf History: CHF. Ordering Physician: LISA ZELAYA Performed By: Lewis Bee Interpretation Summary The left ventricle is grossly normal size. There is moderate concentric left ventricular hypertrophy. No 'True Apical 2 chamber views ' obtained.Hence cannot comment on the apical and basal Inferior and the apical and basal anterior fitzpatrick.The mid Inferior,the mid anterior , and the rest of the LV fitzpatrick probably contract normally , and in these views the LVEF is normal,and in excess of 65%. Doppler measurements suggest normal left ventricular diastolic function The left atrial size is normal. There is no evidence of mitral valve prolapse. Possible trace to mild MR. There is no aortic valve stenosis There is no LVOT obstruction. There is a trace amount of aortic regurgitation TV not well visualised and poor doppler interogation of TR.Probably trace TR.Mild Pulmonary hypertension.RVSP is 44 mm of Hg , with RA mean of 10.There probably is undersampling of TR jet, and hence underesimation of RVSP. Trace posterior pericardial effusion. MMode/2D Measurements \T\ Calculations RVDd: 3.5 cm LVIDd: 5.7 cm FS: 40.6 % Ao root diam: 3.1 cm IVSd: 1.6 cm LVIDs: 3.4 cm EDV(Teich): 158.1 ml LVPWd: 1.7 cm ESV(Teich): 46.4 ml Ao root area: 7.4 cm2 EF(Teich): 70.7 % LA dimension: 3.7 cm Doppler Measurements \T\ Calculations MV E max malorie: MV P1/2t max malorie: Ao V2 max: LV V1 max P.5 cm/sec 67.5 cm/sec 172.7 cm/sec 2.2 mmHg MV A max malorie: MV P1/2t: 68.9 msec Ao max PG: LV V1 max: 58.2 cm/sec 11.9 mmHg 74.9 cm/sec MV E/A: 1.2 MVA(P1/2t): 3.2 cm2 MV dec slope: 287.1 cm/sec2 MV dec time: 0.24 sec PA V2 max: TR max malorie: RAP systole: 125.2 cm/sec 292.0 cm/sec 10.0 mmHg PA max PG: TR max P.1 mmHg 6.3 mmHg RVSP(TR): 44.1 mmHg Left Ventricle The left ventricle is grossly normal size. There is moderate concentric left ventricular hypertrophy. No 'True Apical 2 chamber views ' obtained.Hence cannot comment on the apical and basal Inferior and the apical and basal anterior fitzpatrick.The mid Inferior,the mid anterior , and the rest of the LV fitzpatrick probably contract normally , and in these views the LVEF is normal,and in excess of 65%. Doppler measurements suggest normal left ventricular diastolic function. Right Ventricle The right ventricle is not well visualized secondary to technical limitations. Atria Right atrium not well visualized secondary to technical limitations. The left atrial size is normal. Mitral Valve There is no evidence of mitral valve prolapse. There is no vegetation seen on the mitral valve. There is no mitral valve stenosis. Possible trace to mild MR. Aortic Valve There is no aortic valvular vegetation. There is no aortic valve stenosis. There is no LVOT obstruction. There is a trace amount of aortic regurgitation. Tricuspid Valve TV not well visualised and poor doppler interogation of TR.Probably trace TR.Mild Pulmonary hypertension.RVSP is 44 mm of Hg , with RA mean of 10.There probably is undersampling of TR jet, and hence underesimation of RVSP. Pulmonic Valve The pulmonic valve is not well visualized. Great Vessels The aortic root is not well visualized. Effusions Trace posterior pericardial effusion. : LISA ZELAYA > Merlyn Restrepo
[2016-12-31] MEDS ORDERED: LOPERAMIDE HCL 2 MG CAPSULE PO PRN (21:42)
--- NOTE | 2016-12-31 21:47 | PDOC PROGRESS REPORT ---
Subjective Progress Note for:: 12/31/16 Subjective:: Patient reports he is breathing somewhat better. Patient was found ambulating in the [place] without his oxygen with an oxygen saturation of 74. Patient was advised to refrain from this behavior. Patient does continue to admit to shortness of breath, diarrhea. Complains of bilateral lower extremity pain, which is chronic. Patient denies chest pain, abdominal pain, nausea, vomiting, fevers, chills, constipation, headache, new onset weakness. Physical Exam Vital Signs: Temp Pulse Resp BP Pulse Ox 97.3 F 65 20 127/53 H 94 12/31/16 04:00 12/31/16 07:00 12/31/16 04:00 12/31/16 04:00 12/31/16 04:00 Intake & Output 12/30/16 12/31/16 01/01/17 06:59 06:59 06:59 Intake Total 0 610 Output Total 1500 1350 Balance -1500 -740 Weight 168.3 kg 168.8 kg Exam: General: Awake alert and oriented x3, on BiPAP, no acute respiratory distress HEENT: AT/NC, PERRL, EOMI, oropharynx is moist, pink, no scleral icterus, no conjunctival injection Neck: Neck examination limited by body habitus, trachea midline Chest: Full examination limited by body habitus, diminished bases bilaterally, no wheezes rhonchi or rales CV: RRR, normal S1 and S2, no appreciable murmur, rub, or gallop Abdomen: Soft, nontender to palpation, mildly distended, active bowel sounds; no rebound, rigidity, or guarding Extremities: No cyanosis; +clubbing, 2+edema Neuro: Cranial nerves II through XII are grossly intact without focal deficits; awake alert and orientedx3 Psych: Normal mood and affect Results Laboratory Results: 12/31/16 04:18 12/31/16 04:18 12/31/16 12/31/16 04:18 04:18 WBC 8.3 RBC 4.09 L Hgb 12.1 L Hct 37.6 L MCV 92 MCH 29.6 MCHC 32.1 RDW 15.4 H Plt Count 123 L Seg Neutrophils % 70.9 Lymphocytes % 18.6 Monocytes % 6.1 Eosinophils % 3.7 Basophils % 0.7 Absolute Neutrophils 5.9 Absolute Lymphocytes 1.5 Absolute Monocytes 0.5 Absolute Eosinophils 0.3 Absolute Basophils 0.1 Sodium 139.7 Potassium 4.0 Chloride 90 L Carbon Dioxide 34 H Anion Gap 16 BUN 19 Creatinine 1.05 Est GFR ( Amer) > 60 Est GFR (Non-Af Amer) > 60 Glucose 131 H Calcium 8.4 12/30/16 12/30/16 12/30/16 05:07 05:07 11:34 Creatine Kinase 32 L 34 L CK-MB (CK-2) 1.13 Troponin I < 0.012 12/30/16 12/30/16 12/30/16 11:34 17:31 17:31 Creatine Kinase 32 L CK-MB (CK-2) 1.41 1.54 Troponin I < 0.012 < 0.012 Impressions: Chest X-Ray 12/29/16 23:22 IMPRESSION: Short interval increase in pulmonary vascular congestion in the setting of cardiomegaly suggests positive fluid balance/early CHF pattern. Infectious etiology is not excluded. Assessment & Plan - Diagnosis (1) Diarrhea Qualifiers: Diarrhea type: presumed infectious Qualified Code(s): A09 - Infectious gastroenteritis and colitis, unspecified Is this a current diagnosis for this admission?: YesPlan: C. difficile is negative. Continue with Bacid and add loperamide when necessary (2) Acute on chronic diastolic (congestive) heart failure Is this a current diagnosis for this admission?: YesPlan: Hypervolemic Patient reports drinking in excess of 64 ounces of water daily. Will fluid restrict patient 2 L. Have discussed treatment modality for this. Pending repeat echo. Most recent echo done in 2013 reveals mild diastolic DYSFUNCTION Patient on isosorbide, Plavix, metoprolol, and Cozaar. Transition from Bumex to Lasix. (3) Hypertensive urgency Is this a current diagnosis for this admission?: YesPlan: Improved Continue when necessary hydralazine. (4) Hypothyroidism Qualifiers: Hypothyroidism type: unspecified Qualified Code(s): E03.9 - Hypothyroidism, unspecified Is this a current diagnosis for this admission?: YesPlan: Continue Synthroid at current dose. Patient is not due for repeat level for 3- 4 weeks. (5) Sleep apnea Qualifiers: Sleep apnea type: unspecified type Qualified Code(s): G47.30 - Sleep apnea, unspecified Is this a current diagnosis for this admission?: YesPlan: Have requested assistance from pulmonary Dr. baltazar for possible home Trilogy. (6) Diabetes mellitus type 2 in obese Is this a current diagnosis for this admission?: YesPlan: Patient has hemoglobin A1c of 7.1. Continue metformin twice a day (9) Morbid obesity with BMI of 45.0-49.9, adult Is this a current diagnosis for this admission?: Yes (10) Noncompliance Is this a current diagnosis for this admission?: Yes - Time Time Spent with patient: 25-34 minutes Medications reviewed and adjusted accordingly: Yes
[2017-01-01] MEDS: IPRATROPIUM/ALBUTEROL 0.5-2.5 MG/3 ML AMPUL NEB SCH ×3 (02:09→14:15)
[2017-01-01] MEDS: HEPARIN SOD (PORCINE) 5,000 UNIT/ML 1 ML SYRINGE SUBCUT SCH ×3 (05:10→21:22)
[2017-01-01] MEDS: PREGABALIN 25 MG CAPSULE PO SCH ×3 (05:10→21:22)
[2017-01-01 05:43] LABS: BLOOD UREA NITROGEN 17 mg/dL (7-20); CALCIUM 8.7 mg/dL (8.4-10.2); CHLORIDE 91 mmol/L (98-107); CREATININE RESULT 1.18 mg/dL (0.52-1.25); GLUCOSE 141 mg/dL (75-110); POTASSIUM 3.7 mmol/L (3.6-5.0); SODIUM 140.3 mmol/L (137-145)
[2017-01-01 05:52] LABS: ANION GAP 8 (5-19)
[2017-01-01 05:54] LABS: CARBON DIOXIDE 41 mmol/L (22-30)
[2017-01-01] MEDS: METFORMIN HCL 500 MG TABLET PO SCH ×2 (07:47→17:04)
[2017-01-01] MEDS: ACETAMINOPHEN 325 MG TABLET PO PRN (07:47)
[2017-01-01] MEDS: LEVOTHYROXINE SODIUM 0.1 MG TABLET PO SCH (10:21)
[2017-01-01] MEDS: LOSARTAN POTASSIUM 50 MG TABLET PO SCH ×2 (10:22→21:22)
[2017-01-01] MEDS: CLOPIDOGREL BISULFATE 75 MG TABLET PO SCH (10:22)
[2017-01-01] MEDS: DILTIAZEM HCL 180 MG CAPSULE.CR PO SCH (10:22)
[2017-01-01] MEDS: LACTOBACILLUS ACIDOPHILUS 250 MG TAB PO SCH ×2 (10:22→21:22)
[2017-01-01] MEDS: FUROSEMIDE 40 MG TABLET PO SCH ×2 (10:22→17:04)
[2017-01-01] MEDS: SERTRALINE HCL 50 MG TABLET PO SCH (10:22)
[2017-01-01] MEDS: DOCUSATE SODIUM 100 MG CAPSULE PO SCH (10:22)
[2017-01-01] MEDS: BUDESONIDE/FORMOTEROL 160-4.5 MCG 60 PUFF/6 GM MDI IH SCH ×2 (10:23→17:09)
[2017-01-01] MEDS: ATORVASTATIN CALCIUM 20 MG TABLET PO SCH (10:23)
[2017-01-01] MEDS: FLUTICASONE NASAL SPRAY 50 MCG/SPRY 120 SPRAY/16 GM NAREB SCH (10:23)
[2017-01-01] MEDS: TIOTROPIUM BROMIDE DPI 5 CAP/KIT (18 MCG/CAP) IH SCH (10:24)
[2017-01-01] MEDS ORDERED: GLUCAGON,HUMAN RECOMB 1 MG INJ IM PRN (14:47)
[2017-01-01] MEDS ORDERED: INSULIN LISPRO 100 UNIT/ML 3 ML VIAL SUBCUT PRN (14:47)
[2017-01-01] MEDS ORDERED: DEXTROSE 40% GEL 15 GM TUBE PO PRN ×2 (14:47)
[2017-01-01] MEDS ORDERED: DEXTROSE 50%-WATER 25 GM/50 ML DISP.SYRIN IV PRN ×2 (14:47)
[2017-01-01] MEDS ORDERED: ALBUTEROL SULFATE 0.083% NEB 2.5 MG/3 ML AMPUL NEB PRN (15:06)
--- NOTE | 2017-01-01 15:08 | PDOC PROGRESS REPORT ---
Subjective Progress Note for:: 01/01/17 Subjective:: Patient states that his breathing is still little bit labored. He states that his lower extremity edema has markedly improved from admission. Patient denies fever, chills, headache, new focal weakness, chest pain, abdominal pain, nausea , vomiting, diarrhea, constipation. Physical Exam Vital Signs: Temp Pulse Resp BP Pulse Ox 98.3 F 68 20 160/61 H 91 L 01/01/17 05:33 01/01/17 14:15 01/01/17 14:15 01/01/17 05:33 01/01/17 08:25 Intake & Output 12/31/16 01/01/17 01/02/17 06:59 06:59 06:59 Intake Total 610 1075 Output Total 1350 3705 Balance -740 -2630 Weight 168.8 kg 170.2 kg GENERAL: No acute distress HEENT: Conjunctiva clear, nonicteric, moist mucous membranes, no JVD, midline trachea RESPIRATORY: Clear to auscultation bilaterally, no wheezes, no rhonchi CARDIAC: Regular rate and rhythm, no murmurs/gallops/rubs ABDOMEN: Soft, obese, nontender, positive bowel sounds, no rebound, no guarding EXTREMETIES: Trace bilateral lower extremity edema NEUROLOGIC: Alert, oriented to person/place/time, CN's grossly intact, no focal deficits SKIN: Rubor in bilateral lower extremities consistent with chronic venous stasis PSYCH: Normal mood, normal affect Results Laboratory Results: 12/31/16 04:18 01/01/17 04:41 12/31/16 01/01/17 16:59 04:41 Carbonic Acid 2.02 H HCO3/H2CO3 Ratio 20:1 ABG pH 7.42 ABG pCO2 67.0 H ABG pO2 56.0 L ABG HCO3 42.2 H ABG O2 Saturation 88.5 L ABG Base Excess 14.3 FiO2 4L Sodium 140.3 Potassium 3.7 Chloride 91 L Carbon Dioxide 41 H* Anion Gap 8 BUN 17 Creatinine 1.18 Est GFR ( Amer) > 60 Est GFR (Non-Af Amer) > 60 Glucose 141 H Calcium 8.7 12/30/16 10:30 Nasophary (Mrsa Only) MRSA Surveillance Culture - Final NO MRSA RECOVERED 12/30/16 12/30/16 12/30/16 05:07 05:07 11:34 Creatine Kinase 32 L 34 L CK-MB (CK-2) 1.13 Troponin I < 0.012 12/30/16 12/30/16 12/30/16 11:34 17:31 17:31 Creatine Kinase 32 L CK-MB (CK-2) 1.41 1.54 Troponin I < 0.012 < 0.012 Impressions: Chest X-Ray 12/29/16 23:22 IMPRESSION: Short interval increase in pulmonary vascular congestion in the setting of cardiomegaly suggests positive fluid balance/early CHF pattern. Infectious etiology is not excluded. Assessment & Plan - Diagnosis (1) Respiratory failure, acute and chronic Qualifiers: Respiratory failure complication: hypoxia and hypercapnia Qualified Code(s): J96.21 - Acute and chronic respiratory failure with hypoxia Is this a current diagnosis for this admission?: YesPlan: Patient is on chronic home oxygen. Trilogy ventilator has been obtain for discharge home when stable. (2) Acute on chronic diastolic (congestive) heart failure Is this a current diagnosis for this admission?: YesPlan: Continue Lasix. Continue Lopressor. (3) Diarrhea Qualifiers: Diarrhea type: presumed infectious Qualified Code(s): A09 - Infectious gastroenteritis and colitis, unspecified Is this a current diagnosis for this admission?: YesPlan: C. difficile negative. (4) Hypertensive urgency Is this a current diagnosis for this admission?: YesPlan: Cardizem, metoprolol, Cozaar. When necessary IV hydralazine. (5) Hypothyroidism Qualifiers: Hypothyroidism type: unspecified Qualified Code(s): E03.9 - Hypothyroidism, unspecified Is this a current diagnosis for this admission?: YesPlan: Synthroid. (6) Sleep apnea Qualifiers: Sleep apnea type: unspecified type Qualified Code(s): G47.30 - Sleep apnea, unspecified Is this a current diagnosis for this admission?: Yes (7) Diabetes mellitus type 2 in obese Is this a current diagnosis for this admission?: YesPlan: Metformin. Sliding scale insulin. (8) Obesity hypoventilation syndrome Is this a current diagnosis for this admission?: Yes (9) Morbid obesity with BMI of 45.0-49.9, adult Is this a current diagnosis for this admission?: Yes (10) Coronary artery disease Is this a current diagnosis for this admission?: YesPlan: Continue Plavix, beta hilda, Imdur, Lipitor. (11) Stented coronary artery Is this a current diagnosis for this admission?: Yes (12) COPD (chronic obstructive pulmonary disease) Is this a current diagnosis for this admission?: YesPlan: Spiriva, Symbicort. When necessary albuterol. - Time Time Spent with patient: 35 or more minutes Anticipated discharge: Home
[2017-01-01] MEDS: ISOSORBIDE MONONITRATE 30 MG TAB.ER.24H PO SCH (17:04)
[2017-01-01] MEDS: METOPROLOL TARTRATE 25 MG TABLET PO SCH (17:09)
[2017-01-02] MEDS: HEPARIN SOD (PORCINE) 5,000 UNIT/ML 1 ML SYRINGE SUBCUT SCH ×2 (05:15→14:04)
[2017-01-02] MEDS: PREGABALIN 25 MG CAPSULE PO SCH ×2 (05:15→14:03)
[2017-01-02 06:26] LABS: CHLORIDE 91 mmol/L (98-107); POTASSIUM 3.7 mmol/L (3.6-5.0)
[2017-01-02 07:09] LABS: BLOOD UREA NITROGEN 16 mg/dL (7-20); CALCIUM 8.9 mg/dL (8.4-10.2); CREATININE RESULT 1.12 mg/dL (0.52-1.25); GLUCOSE 122 mg/dL (75-110); SODIUM 139.6 mmol/L (137-145)
[2017-01-02 07:16] LABS: ANION GAP 10 (5-19); CARBON DIOXIDE 39 mmol/L (22-30)
[2017-01-02 07:59] LABS: ABSOLUTE EOSINOPHILS # (AUTO) 0.3 10^3/uL (0.0-0.6); ABSOLUTE LYMPHOCYTES (AUTO) 1.4 10^3/uL (0.5-4.7); ABSOLUTE MONOCYTES (AUTO) 0.6 10^3/uL (0.1-1.4); ABSOLUTE NEUT (AUTO) 5.5 10^3/uL (1.7-8.2); BASOPHILS % (AUTO) 0.6 % (0-2); EOSINOPHILS % (AUTO) 3.6 % (0-6); HEMATOCRIT 34.3 % (37.9-51.0); HEMOGLOBIN 11.5 g/dL (13.5-17.0); HGB HCT DIFFERENCE 0.2; LYMPHOCYTES % (AUTO) 17.6 % (13-45); MEAN CORPUSCULAR HEMOGLOBIN 29.5 pg (27.0-33.4); MEAN CORPUSCULAR HGB CONC 33.6 g/dL (32.0-36.0); MONOCYTES % (AUTO) 7.7 % (3-13); RED BLOOD COUNT 3.92 10^6/uL (4.35-5.55); SEGMENTED NEUTROPHILS % (AUTO) 70.5 % (42-78); WHITE BLOOD COUNT 7.8 10^3/uL (4.0-10.5)
[2017-01-02 08:09] LABS: MEAN CORPUSCULAR VOLUME 88 fl (80-97)
[2017-01-02] MEDS: ACETAMINOPHEN 325 MG TABLET PO PRN (08:47)
[2017-01-02] MEDS: METFORMIN HCL 500 MG TABLET PO SCH (08:47)
[2017-01-02] MEDS: LOSARTAN POTASSIUM 50 MG TABLET PO SCH (10:54)
[2017-01-02] MEDS: CLOPIDOGREL BISULFATE 75 MG TABLET PO SCH (10:55)
[2017-01-02] MEDS: LACTOBACILLUS ACIDOPHILUS 250 MG TAB PO SCH (10:55)
[2017-01-02] MEDS: DOCUSATE SODIUM 100 MG CAPSULE PO SCH (10:55)
[2017-01-02] MEDS: SERTRALINE HCL 50 MG TABLET PO SCH (10:55)
[2017-01-02] MEDS: LEVOTHYROXINE SODIUM 0.1 MG TABLET PO SCH (10:55)
[2017-01-02] MEDS: DILTIAZEM HCL 180 MG CAPSULE.CR PO SCH (10:55)
[2017-01-02] MEDS: FUROSEMIDE 40 MG TABLET PO SCH (10:56)
[2017-01-02] MEDS: BUDESONIDE/FORMOTEROL 160-4.5 MCG 60 PUFF/6 GM MDI IH SCH (10:56)
[2017-01-02] MEDS: ATORVASTATIN CALCIUM 20 MG TABLET PO SCH (10:56)
[2017-01-02] MEDS: FLUTICASONE NASAL SPRAY 50 MCG/SPRY 120 SPRAY/16 GM NAREB SCH (10:56)
[2017-01-02] MEDS: TIOTROPIUM BROMIDE DPI 5 CAP/KIT (18 MCG/CAP) IH SCH (10:57)
--- NOTE | 2017-01-02 13:29 | PDOC DISCHARGE SUMMARY ---
General - Admit/Disc Date/PCP Admission Date/Primary Care Provider: 12/30/16 01:35 ANJALI BROWNLEE MD Discharge Date: 01/02/17 - Discharge Diagnosis (1) Respiratory failure, acute and chronic Is this a current diagnosis for this admission?: Yes (2) Acute on chronic diastolic (congestive) heart failure Is this a current diagnosis for this admission?: Yes (3) Diarrhea Is this a current diagnosis for this admission?: Yes (4) Hypertensive urgency Is this a current diagnosis for this admission?: Yes (5) Hypothyroidism Is this a current diagnosis for this admission?: Yes (6) Sleep apnea Is this a current diagnosis for this admission?: Yes (7) Diabetes mellitus type 2 in obese Is this a current diagnosis for this admission?: Yes (8) Obesity hypoventilation syndrome Is this a current diagnosis for this admission?: Yes (9) Morbid obesity with BMI of 45.0-49.9, adult Is this a current diagnosis for this admission?: Yes (10) Coronary artery disease Is this a current diagnosis for this admission?: Yes (11) Stented coronary artery Is this a current diagnosis for this admission?: Yes (12) COPD (chronic obstructive pulmonary disease) Is this a current diagnosis for this admission?: Yes - Additional Information Resuscitation Status: Full Code Discharge Diet: Cardiac, Diabetic Discharge Activity: Activity As Tolerated, Balance Activity w/Rest, Weigh Daily Home Medications: Albuterol Sulfate [Ventolin 0.083% Neb 2.5 mg/3 mL Ampul] 3 ml NEB TID 12/30/16 Budesonide/Formoterol Fumarate [Symbicort HFA 160-4.5 mcg Inhaler 6 gm] 2 puff IH BID 12/30/16 Clopidogrel Bisulfate [Plavix 75 mg Tablet] 75 mg PO DAILY 12/30/16 Diltiazem HCl [Diltiazem ER] 360 mg PO DAILY 12/30/16 Fluticasone Propionate [Flonase Nasal [place] 50 Mcg/[place] 16 gm] 1 spray NASL DAILY 12/30/16 Isosorbide Mononitrate [Isosorbide Mononitrate ER] 30 mg PO DAILY 12/30/16 Metformin HCl [Glucophage] 100 mg PO BID 12/30/16 Metoprolol Tartrate [Lopressor 25 mg Tablet] 25 mg PO DAILY 12/30/16 Naproxen 500 mg PO BIDP PRN 12/30/16 Sertraline HCl [Zoloft] 100 mg PO DAILY 12/30/16 Tiotropium Stevenson [Spiriva Handihaler 5 Cap/Kit (18 Mcg/Cap)] 1 puff IH DAILY 12/30/16 Atorvastatin Calcium [Lipitor 20 mg Tablet] 40 mg PO DAILY tablet 01/02/17 Docusate Sodium [Colace 100 mg Capsule] 100 mg PO DAILY #30 capsule 01/02/17 Furosemide [Lasix] 40 mg PO BID #60 tablet 01/02/17 Isosorbide Mononitrate [Imdur 30 mg Tablet.er] 30 mg PO QPM tab.er.24h Levothyroxine Sodium [Synthroid 0.1 mg Tablet] 0.1 mg PO DAILY tablet 01/02/17 Losartan Potassium [Cozaar 50 mg Tablet] 50 mg PO Q12 #60 tablet 01/02/17 Pregabalin [Lyrica 25 mg Capsule] 25 mg PO Q8 #90 capsule 01/02/17 History of Present Illness Patient complains of: Shortness of breath History of Present Illness: DESIRAE MALLORY is a 51 year old male well-known to the hospitalist service for recurrent exacerbation of diastolic heart failure presenting after 24 hours of shortness of breath, orthopnea and +2 lower extremity edema. Denies chest pain though admits compliance with medication but unaware of dietary restrictions enervating to approximately 64 ounces of water per day. His blood pressure in the emergency room his found to be 199/93. He started on IV nitroglycerin IV Lasix and referred to the hospitalist for admission. Hospital Course Hospital Course: Patient was omitted for acute on chronic hypoxemic respiratory failure. He is home oxygen dependent as well as nocturnal CPAP dependent for obstructive sleep apnea and obesity hypoventilation syndrome. Patient had acutely decompensated diastolic heart failure during this admission and was diuresed. He is euvolemic at time of discharge. His respiratory status is at baseline on 4 L nasal cannula oxygen. He was evaluated by Dr. Lackey of pulmonary medicine and has been transitioned off of CPAP and onto Trilogy ventilator. We will have him follow-up with Dr. Lackey of pulmonary medicine after discharge. We will also arrange follow-up with Dr. Mccain of cardiology after discharge. Physical Exam Vital Signs: Temp Pulse Resp BP Pulse Ox 98.0 F 59 L 24 H 139/70 H 96 01/02/17 10:24 01/02/17 10:24 01/02/17 10:24 01/02/17 10:24 01/02/17 10:24 Intake & Output 01/01/17 01/02/17 01/03/17 06:59 06:59 06:59 Intake Total 1075 1657 Output Total 3700 7770 Balance -5300 -713 Weight 170.2 kg 172.2 kg GENERAL: No acute distress HEENT: Conjunctiva clear, nonicteric, moist mucous membranes, no JVD, midline trachea RESPIRATORY: Clear to auscultation bilaterally, no wheezes, no rhonchi CARDIAC: Regular rate and rhythm, no murmurs/gallops/rubs ABDOMEN: Soft, obese, nontender, positive bowel sounds, no rebound, no guarding EXTREMETIES: Trace bilateral lower extremity edema NEUROLOGIC: Alert, oriented to person/place/time, CN's grossly intact, no focal deficits SKIN: Rubor in bilateral lower extremities consistent with chronic venous stasis PSYCH: Normal mood, normal affect Results Laboratory Results: 01/02/17 07:00 01/02/17 05:25 01/02/17 01/02/17 01/02/17 05:25 05:25 07:00 WBC Cancelled 7.8 RBC Cancelled 3.92 L Hgb Cancelled 11.5 L Hct Cancelled 34.3 L MCV Cancelled 88 D MCH Cancelled 29.5 MCHC Cancelled 33.6 RDW Cancelled 15.0 H Plt Count Cancelled 235 Seg Neutrophils % Cancelled 70.5 Lymphocytes % Cancelled 17.6 Monocytes % Cancelled 7.7 Eosinophils % Cancelled 3.6 Basophils % Cancelled 0.6 Absolute Neutrophils Cancelled 5.5 Absolute Lymphocytes Cancelled 1.4 Absolute Monocytes Cancelled 0.6 Absolute Eosinophils Cancelled 0.3 Absolute Basophils Cancelled 0.0 Sodium 139.6 Potassium 3.7 Chloride 91 L Carbon Dioxide 39 H Anion Gap 10 BUN 16 Creatinine 1.12 Est GFR ( Amer) > 60 Est GFR (Non-Af Amer) > 60 Glucose 122 H Calcium 8.9 12/30/16 10:30 Nasophary (Mrsa Only) MRSA Surveillance Culture - Final NO MRSA RECOVERED 12/30/16 12/30/16 12/30/16 05:07 05:07 11:34 Creatine Kinase 32 L 34 L CK-MB (CK-2) 1.13 Troponin I < 0.012 12/30/16 12/30/16 12/30/16 11:34 17:31 17:31 Creatine Kinase 32 L CK-MB (CK-2) 1.41 1.54 Troponin I < 0.012 < 0.012 Labs- Last Values WBC 7.8 10^3/uL (4.0-10.5) 01/02/17 07:00 RBC 3.92 10^6/uL (4.35-5.55) L 01/02/17 07:00 Hgb 11.5 g/dL (13.5-17.0) L 01/02/17 07:00 Hct 34.3 % (37.9-51.0) L 01/02/17 07:00 MCV 88 fl (80-97) D 01/02/17 07:00 MCH 29.5 pg (27.0-33.4) 01/02/17 07:00 MCHC 33.6 g/dL (32.0-36.0) 01/02/17 07:00 RDW 15.0 % (11.5-14.0) H 01/02/17 07:00 Plt Count 235 10^3/uL (150-450) 01/02/17 07:00 Seg Neutrophils % 70.5 % (42-78) 01/02/17 07:00 Lymphocytes % 17.6 % (13-45) 01/02/17 07:00 Monocytes % 7.7 % (3-13) 01/02/17 07:00 Eosinophils % 3.6 % (0-6) 01/02/17 07:00 Basophils % 0.6 % (0-2) 01/02/17 07:00 Absolute Neutrophils 5.5 10^3/uL (1.7-8.2) 01/02/17 07:00 Absolute Lymphocytes 1.4 10^3/uL (0.5-4.7) 01/02/17 07:00 Absolute Monocytes 0.6 10^3/uL (0.1-1.4) 01/02/17 07:00 Absolute Eosinophils 0.3 10^3/uL (0.0-0.6) 01/02/17 07:00 Absolute Basophils 0.0 10^3/uL (0.0-0.2) 01/02/17 07:00 Platelet Estimate Cancelled 01/02/17 05:25 Carbonic Acid 2.02 mmol/L (1.05-1.35) H 12/31/16 16:59 HCO3/H2CO3 Ratio 20:1 12/31/16 16:59 ABG pH 7.42 (7.35-7.45) 12/31/16 16:59 ABG pCO2 67.0 mmHg (35-45) H 12/31/16 16:59 ABG pO2 56.0 mmHg (80-100) L 12/31/16 16:59 ABG HCO3 42.2 mmol/L (20-26) H 12/31/16 16:59 ABG Total CO2 44.2 mmol/L (23-27) H 12/31/16 16:59 ABG O2 Saturation 88.5 % (94-98) L 12/31/16 16:59 ABG Base Excess 14.3 mmol/L 12/31/16 16:59 VBG pH 7.31 (7.30-7.42) 12/31/16 08:49 VBG pCO2 84.1 mmHg (35-63) H* 12/31/16 08:49 VBG HCO3 41.3 mmol/L (20-32) H 12/31/16 08:49 VBG Base Excess 11.5 mmol/L 12/31/16 08:49 FiO2 4L 12/31/16 16:59 Sodium 139.6 mmol/L (137-145) 01/02/17 05:25 Potassium 3.7 mmol/L (3.6-5.0) 01/02/17 05:25 Chloride 91 mmol/L (98-107) L 01/02/17 05:25 Carbon Dioxide 39 mmol/L (22-30) H 01/02/17 05:25 Anion Gap 10 (5-19) 01/02/17 05:25 BUN 16 mg/dL (7-20) 01/02/17 05:25 Creatinine 1.12 mg/dL (0.52-1.25) 01/02/17 05:25 Est GFR ( Amer) > 60 (>60) 01/02/17 05:25 Est GFR (Non-Af Amer) > 60 (>60) 01/02/17 05:25 Glucose 122 mg/dL (75-110) H 01/02/17 05:25 POC Glucose 119 mg/dL (70-110) H 01/02/17 05:25 Lactic Acid 0.9 mmol/L (0.7-2.1) 12/31/16 08:49 Calcium 8.9 mg/dL (8.4-10.2) 01/02/17 05:25 Total Bilirubin 0.5 mg/dL (0.2-1.3) 12/29/16 23:15 Direct Bilirubin 0.0 mg/dL (0.0-0.3) 12/29/16 23:15 AST 19 U/L (17-59) 12/29/16 23:15 ALT 26 U/L (21-72) 12/29/16 23:15 Alkaline Phosphatase 87 U/L (38-126) 12/29/16 23:15 Creatine Kinase 32 U/L (55-170) L 12/30/16 17:31 CK-MB (CK-2) 1.54 ng/mL (<4.55) 12/30/16 17:31 Troponin I < 0.012 ng/mL 12/30/16 17:31 NT-Pro-B Natriuret Pep 869 pg/mL (5-900) 12/29/16 23:15 Total Protein 6.8 g/dL (6.3-8.2) 12/29/16 23:15 Albumin 3.8 g/dL (3.5-5.0) 12/29/16 23:15 C. difficile Tox (PCR) NEGATIVE (NEGATIVE) 12/30/16 12:00 Hepatitis A IgM Ab Negative (Negative) 01/01/17 04:41 Hep Bs Antigen Negative (Negative) 01/01/17 04:41 Hep B Core IgM Ab Negative (Negative) 01/01/17 04:41 Hepatitis C Antibody <0.1 s/co ratio (0.0-0.9) 01/01/17 04:41 Slides for Path Review Cancelled 01/02/17 05:25 Impressions: Chest X-Ray 01/02/17 06:00 IMPRESSION: Retrocardiac opacity on the left which could represent aspiration, atelectasis, edema, or infiltrate. This appears that similar to the prior study. Stable cardiomegaly without minimal pulmonary vascular congestion. Qualifiers PATEINT BEING DISCHARGED WITH ANY OF THE FOLLOWING DIAGNOSIS?: Heart Failure HF Pt being discharged on ACEI for LVEF less than 40%?: No Reason(s) for not prescribing ACEI:: Not indicated HF Pt being discharged on ARBS for LVEF less than 40%?: No Reason(s) for not prescribing ARBS:: Not indicated HF Pt with Afib discharged with Warfarin?: No Reason(s) for not prescribing Warfarin:: Not indicated HF Pt discharged on evidence-based Beta Steven?: Yes Plan Time Spent: Less than 30 Minutes
[2017-01-02 14:24] VITALS: BP 139/65
--- NOTE | 2017-01-02 16:46 | PDOC PROGRESS REPORT ---
Subjective Progress Note for:: 01/02/17 Subjective:: Patient without complaints Physical Exam Vital Signs: Temp Pulse Resp BP Pulse Ox 98.0 F 59 L 24 H 139/65 H 96 01/02/17 14:18 01/02/17 14:18 01/02/17 14:18 01/02/17 14:18 01/02/17 14:18 Intake & Output 01/01/17 01/02/17 01/03/17 06:59 06:59 06:59 Intake Total 1075 1657 480 Output Total 3702 3180 750 Balance -2630 -713 -270 Weight 170.2 kg 172.2 kg General appearance: PRESENT: no acute distress, disheveled, morbidly obese Head exam: PRESENT: atraumatic, normocephalic Eye exam: PRESENT: conjunctiva pale, EOMI Mouth exam: PRESENT: neck supple, tongue midline Neck exam: ABSENT: carotid bruit, JVD, lymphadenopathy, thyromegaly Respiratory exam: PRESENT: decreased breath sounds, prolonged expiratory phas, rhonchi, symmetrical, unlabored Cardiovascular exam: PRESENT: RRR, +S1, +S2 Pulses: PRESENT: normal radial pulses GI/Abdominal exam: PRESENT: normal bowel sounds, soft. ABSENT: distended, guarding, mass, organolmegaly, rebound, tenderness Rectal exam: PRESENT: deferred Musculoskeletal exam: PRESENT: other - Cellulitis distal extremities bilateral Neurological exam: PRESENT: alert, awake, oriented to person, oriented to place , oriented to time, oriented to situation Psychiatric exam: PRESENT: normal mood Results Laboratory Results: 01/02/17 07:00 01/02/17 05:25 01/02/17 01/02/17 01/02/17 05:25 05:25 07:00 WBC Cancelled 7.8 RBC Cancelled 3.92 L Hgb Cancelled 11.5 L Hct Cancelled 34.3 L MCV Cancelled 88 D MCH Cancelled 29.5 MCHC Cancelled 33.6 RDW Cancelled 15.0 H Plt Count Cancelled 235 Seg Neutrophils % Cancelled 70.5 Lymphocytes % Cancelled 17.6 Monocytes % Cancelled 7.7 Eosinophils % Cancelled 3.6 Basophils % Cancelled 0.6 Absolute Neutrophils Cancelled 5.5 Absolute Lymphocytes Cancelled 1.4 Absolute Monocytes Cancelled 0.6 Absolute Eosinophils Cancelled 0.3 Absolute Basophils Cancelled 0.0 Sodium 139.6 Potassium 3.7 Chloride 91 L Carbon Dioxide 39 H Anion Gap 10 BUN 16 Creatinine 1.12 Est GFR ( Amer) > 60 Est GFR (Non-Af Amer) > 60 Glucose 122 H Calcium 8.9 12/30/16 12/30/16 12/30/16 05:07 05:07 11:34 Creatine Kinase 32 L 34 L CK-MB (CK-2) 1.13 Troponin I < 0.012 12/30/16 12/30/16 12/30/16 11:34 17:31 17:31 Creatine Kinase 32 L CK-MB (CK-2) 1.41 1.54 Troponin I < 0.012 < 0.012 Impressions: Chest X-Ray 01/02/17 06:00 IMPRESSION: Retrocardiac opacity on the left which could represent aspiration, atelectasis, edema, or infiltrate. This appears that similar to the prior study. Stable cardiomegaly without minimal pulmonary vascular congestion. Assessment & Plan - Diagnosis (1) COPD exacerbation Is this a current diagnosis for this admission?: YesPlan: Stop smoking continue current bronchodilator therapy (2) Morbid obesity with BMI of 45.0-49.9, adult Is this a current diagnosis for this admission?: YesPlan: Weight loss follow thyroid function test (3) Pulmonary edema Qualifiers: Chronicity: acute Qualified Code(s): J81.0 - Acute pulmonary edema Is this a current diagnosis for this admission?: YesPlan: Echo was unable to demonstrate pulmonary hypertension (4) Hypothyroidism Qualifiers: Hypothyroidism type: unspecified Qualified Code(s): E03.9 - Hypothyroidism, unspecified Is this a current diagnosis for this admission?: No (5) ARIADNA (obstructive sleep apnea) Is this a current diagnosis for this admission?: YesPlan: Patient is failed by CPAP and repeatedly demonstrates hypercapnia patient would be a good candidate for trilogy vent (6) Obesity hypoventilation syndrome Is this a current diagnosis for this admission?: YesPlan: Combined with obstructive sleep apnea hypercapnic hypoxic ventilatory failure patient will be optimally treated with a trilogy in order to maintain an adequate tidal volume and minute ventilation as he has failed BiPAP
== END 2017-01-02 15:21 | disposition home health service (06) | DRG 291 ==
LOC: ER 22:45 → EH 12-30 01:35 → 4N 12-30 05:47
PROVIDERS: ADMIT Internal Medicine; ATTEND Internal Medicine
PROC: 5A09457 Assistance with Respiratory Ventilation, 24-96 Consecutive Hours, Continuous Positive Airway Pressure (ICD-10-PCS; principal; 2016-12-30)
DX: I11.0 Hypertensive heart disease with heart failure (principal); J96.22 Acute and chronic respiratory failure with hypercapnia; J96.21 Acute and chronic respiratory failure with hypoxia; J44.1 Chronic obstructive pulmonary disease with (acute) exacerbation; Z68.43 Body mass index [BMI] 50.0-59.9, adult; A09 Infectious gastroenteritis and colitis, unspecified; E66.2 Morbid (severe) obesity with alveolar hypoventilation; I50.33 Acute on chronic diastolic (congestive) heart failure; I16.0 Hypertensive urgency; J45.909 Unspecified asthma, uncomplicated; I48.91 Unspecified atrial fibrillation; I25.2 Old myocardial infarction; K21.9 Gastro-esophageal reflux disease without esophagitis; M19.90 Unspecified osteoarthritis, unspecified site; F31.9 Bipolar disorder, unspecified; F17.200 Nicotine dependence, unspecified, uncomplicated; E03.9 Hypothyroidism, unspecified; E11.9 Type 2 diabetes mellitus without complications; Z90.49 Acquired absence of other specified parts of digestive tract; Z95.5 Presence of coronary angioplasty implant and graft; Z82.3 Family history of stroke; Z79.899 Other long term (current) drug therapy; Z88.6 Allergy status to analgesic agent; Z91.013 Allergy to seafood; Z91.19 Patient's noncompliance with other medical treatment and regimen; Z79.84 Long term (current) use of oral hypoglycemic drugs; Z99.81 Dependence on supplemental oxygen
CPT/HCPCS: 36415; 36600; 71010; 80048; 80053; 80074; 82550; 82553; 82803; 82962; 83605; 83880; 84484; 85025; 87493; 93005; 93010; 93306; 94660; 96365; 96366; 96375; 99285; J1644; J1940; J3490; J7620